=== PATIENT | female | born 1930 | race Caucasian/White ===

== ENCOUNTER 2019-04-29 20:34 | Emergency (ER) | payer MEDICARE, OTHER ==
--- NOTE | 2019-04-29 21:40 | ER Document Report ---
ED General - General Chief Complaint: Displaced G-tube Stated Complaint: FEEDING TUBE Time Seen by Provider: 04/29/19 21:24 Primary Care Provider: KALE PASCUAL MD [NO LOCAL MD] - Follow up as needed Notes: Patient is a 89-year-old female that comes to the emergency department for chief complaint of displaced G-tube. Son states that he came to give her her medications and feeding tonight and he noticed that her G-tube had been pulled out. He denies any significant bleeding, patient has not been in pain and has not been complaining of anything. She has not been vomiting. No other complaints. Son is at bedside. Patient has dementia and is unable to give any meaningful history. She cannot tell me if she pulled this out or what happened. TRAVEL OUTSIDE OF THE [place] IN LAST 30 DAYS: No - Related Data Allergies/Adverse Reactions: Penicillins Allergy (Verified 12/18/17 14:49) Past Medical History - General Information source: Patient, Relative - Social History Smoking Status: Never Smoker Chew tobacco use (# tins/day): No Frequency of alcohol use: None Drug Abuse: None Lives with: Family Family History: Reviewed & Not Pertinent, Other - ams Patient has suicidal ideation: No Patient has homicidal ideation: No - Past Medical History Cardiac Medical History: Reports: Hx Atrial Fibrillation Renal/ Medical History: Denies: Hx Peritoneal Dialysis Past Surgical History: Reports: Hx Abdominal Surgery - Immunizations Immunizations up to date: Yes Hx Diphtheria, Pertussis, Tetanus Vaccination: Yes Review of Systems - Review of Systems Constitutional: No symptoms reported EENT: No symptoms reported Cardiovascular: No symptoms reported Respiratory: No symptoms reported Gastrointestinal: See HPI Genitourinary: No symptoms reported Female Genitourinary: No symptoms reported Musculoskeletal: No symptoms reported Skin: No symptoms reported Hematologic/Lymphatic: No symptoms reported Neurological/Psychological: No symptoms reported Physical Exam - Vital signs Vitals: Temp Pulse Resp BP Pulse Ox 98.7 F 74 16 128/62 H 100 04/30/19 00:13 04/30/19 00:13 04/30/19 00:13 04/30/19 00:13 04/30/19 00:13 - Notes Notes: GENERAL: Alert, interacts well. No acute distress. HEAD: Normocephalic, atraumatic. EYES: Pupils equal, round, and reactive to light. Extraocular movements intact. ENT: Oral mucosa moist, tongue midline. Oropharynx unremarkable. Airway patent. LUNGS: Clear to auscultation bilaterally, no wheezes, rales, or rhonchi. No respiratory distress. HEART: Regular rate and rhythm. No murmur ABDOMEN: There is an opening in the left upper/mid abdomen consistent with an opening for a G-tube. Very small amount of gastric contents at the edges of this, very small amount of blood, no current bleeding noted however. No erythema, tenderness, or concerning findings. GENITOURINARY: Deferred EXTREMITIES: Moves all 4 extremities spontaneously. No edema, normal radial and dorsalis pedis pulses bilaterally. No cyanosis. BACK: no cervical, thoracic, lumbar midline tenderness. No saddle anesthesia, normal distal neurovascular exam. Moves all extremities in full range of motion. NEUROLOGICAL: Alert to person and place but not to events. Normal speech. Cranial nerves II through XII grossly intact. PSYCH: Normal affect, normal mood. SKIN: Warm, dry, normal turgor. No rashes or lesions noted. Course - Re-evaluation Re-evalutation: Patient has a G-tube with no markings on it, there is no clear size given on the G-tube. I am estimating this is approximately an 18-20 Colombian, the area was quickly cleaned in sterile fashion and we attempted to pass a 20 but this was too small of a hole. However the 18 passed easily, this was confirmed by auscultation, KUB pending to confirm placement for use. Patient discussed with Dr. Dean. wastewater technician imaged this, I cannot see the tube with contrast. I discussed with with her. She states that she attempted to flush using contrast but all of it immediately came back out of the tubing without going in. The area was re evaluated, the balloon appears to be intact, I was able to pass this easily previously, we flushed this with no difficulty. I called the radiology department back and they sent another tech, this tech was able to easily flush the Gastrografin in and the KUB resulting appears normal. Since this has been confirmed in place, patient has no other complaints, her vital signs are unremarkable, discussed follow-up with patient and family, discussed return precautions. They state appreciation and agreement. Stable at time of discharge. - Vital Signs Vital signs: Temp Pulse Resp BP Pulse Ox 98.7 F 74 16 128/62 H 100 04/30/19 00:13 04/30/19 00:13 04/30/19 00:13 04/30/19 00:13 04/30/19 00:13 Procedures - Additional Procedures Gastric tube replacement Additional Procedures: Gastric tube replacement - Old gastric tube has already been removed by patient. Area was cleaned with Hibiclens, I used sterile gloves and a sterile field, I attempted to pass a 20 Colombian gastric tube through the opening but I could not get this in the opening easily, this was aborted, I changed to an 18 Colombian gastric tube and this advanced easily with no resistance and no painful response from the patient. No significant bleeding resulting from the procedure. Area was secured with the device lock and with a dressing. Area was flushed with air and confirmed placement with auscultation. Patient tolerated procedure very well. Discharge - Discharge Clinical Impression: Complaint associated with gastric tube Condition: Stable Disposition: HOME, SELF-CARE Additional Instructions: The tubing has been replaced, she now has a 20 Colombian tube which has been flushed and confirmed to be working. Proceed with her regular medications and feedings. Please follow-up closely with her mother's helper for recheck and additional management. Return for any concerning symptoms (severe pain, developing redness at the site, etc) or if something is not right. Referrals: KALE PASCUAL MD [NO LOCAL MD] - Follow up as needed
--- NOTE | 2019-04-29 22:54 | RADIOLOGY REPORT (SQ) ---
EXAM DESCRIPTION: [facility]: XR ABDOMEN 1 VIEW (KUB) CLINICAL HISTORY: 89 years Female; replaced g-tube, Gastrografin; COMPARISON: 12/18/2017 FINDINGS: AP portable supine view of the mid and lower abdomen. The upper abdomen is not entirely included on this image. No gastrostomy tube is identified. No Gastrografin or other contrast material is identified. No bowel distention. No pneumatosis. Chronic degenerative changes are noted in the lumbar spine. IMPRESSION: 1. Gastrostomy tube is not imaged on this exam (upper abdomen incompletely imaged). No contrast material is identified. 2. No bowel distention.
--- NOTE | 2019-04-29 23:53 | RADIOLOGY REPORT (SQ) ---
ABDOMINAL RADIOGRAPH: 04/29/2019 10:51 PM PHERESIS SPECIALIST COMPARISON: Abdominal radiograph from earlier on the same day available TECHNIQUE: A single radiograph of the abdomen was obtained. HISTORY: 89-year old with G-tube placement. FINDINGS: The lung bases were not fully included on this examination. There is contrast seen at the stomach and proximal duodenum. Contrast is also seen extending into the distal esophagus. This is suggestive of some reflux. No gross contrast extravasation is seen. The visualized bowel gas pattern is nonspecific and nonobstructive. No abnormal intra-abdominal calcifications are seen. There are no findings to suggest organomegaly. Multilevel degenerative changes are seen within the lumbar spine. IMPRESSION: Contrast is seen at the stomach and proximal duodenum without evidence of gross contrast extravasation on this single radiograph. There is contrast in the distal esophagus suggesting reflux.
[2019-04-30 00:14] VITALS: BP 128/62
== END 2019-04-30 01:26 | disposition home or self-care (01) ==
LOC: ER 20:34
DX: Z43.1 Encounter for attention to gastrostomy (principal); F03.90 Unspecified dementia, unspecified severity, without behavioral disturbance, psychotic disturbance, mood disturbance, and anxiety; I48.91 Unspecified atrial fibrillation; Y83.3 Surgical operation with formation of external stoma as the cause of abnormal reaction of the patient, or of later complication, without mention of misadventure at the time of the procedure; Z88.0 Allergy status to penicillin
CPT/HCPCS: 74018; 99283

== ENCOUNTER 2019-05-02 12:29 | Emergency (ER) | payer MEDICARE, OTHER ==
--- NOTE | 2019-05-02 12:46 | ER Document Report ---
ED General - General Stated Complaint: TUBE ISSUES Time Seen by Provider: 05/02/19 12:45 Primary Care Provider: LAURA WEIR DO [Primary Care Provider] - Follow up as needed TRAVEL OUTSIDE OF THE [place] IN LAST 30 DAYS: No - Related Data Allergies/Adverse Reactions: Penicillins Allergy (Verified 12/18/17 14:49) Past Medical History - Social History Family History: Reviewed & Not Pertinent, Other - ams - Past Medical History Cardiac Medical History: Reports: Hx Atrial Fibrillation Renal/ Medical History: Denies: Hx Peritoneal Dialysis Past Surgical History: Reports: Hx Abdominal Surgery - Immunizations Immunizations up to date: Yes Hx Diphtheria, Pertussis, Tetanus Vaccination: Yes Discharge - Discharge Referrals: LAURA WEIR DO [Primary Care Provider] - Follow up as needed
--- NOTE | 2019-05-02 13:10 | ER Document Report ---
ED General - General Chief Complaint: Problem with Feeding Tube Stated Complaint: TUBE ISSUES Time Seen by Provider: 05/02/19 12:45 Primary Care Provider: LAURA WEIR DO [Primary Care Provider] - Follow up as needed TRAVEL OUTSIDE OF THE [place] IN LAST 30 DAYS: No - HPI Patient complains to provider of: Feeding Tube Issue Notes: Well-appearing 89-year-old female with feeding tubes dislodged. Patient had a feeding tube placed back in December of last year. Tube fell out approximately 1 hour ago. This tube was also just pulled out about 4 days ago and replaced in the emergency department. 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 Appears in no acute distress. Non-reliable review of systems. - Related Data Allergies/Adverse Reactions: Penicillins Allergy (Verified 12/18/17 14:49) Past Medical History - Social History Smoking Status: Unknown if Ever Smoked Family History: Reviewed & Not Pertinent, Other - ams Patient has suicidal ideation: No Patient has homicidal ideation: No - Past Medical History Cardiac Medical History: Reports: Hx Atrial Fibrillation Renal/ Medical History: Denies: Hx Peritoneal Dialysis Past Surgical History: Reports: Hx Abdominal Surgery - Immunizations Immunizations up to date: Yes Hx Diphtheria, Pertussis, Tetanus Vaccination: Yes Review of Systems - Review of Systems -: Yes ROS unobtainable due to patient's medical condition Physical Exam - Vital signs Vitals: Temp Pulse Resp BP Pulse Ox 98.8 F 73 16 119/65 96 05/02/19 12:37 05/02/19 12:37 05/02/19 12:37 05/02/19 12:37 05/02/19 12:37 - Notes Notes: Well-appearing female no acute distress. PHYSICAL EXAMINATION: GENERAL: Well-appearing, well-nourished and in no acute distress. HEAD: Atraumatic, normocephalic. EYES: Pupils equal round and reactive to light, extraocular movements intact, sclera anicteric, conjunctiva are normal. ENT: nares patent, oropharynx clear without exudates. Moist mucous membranes. NECK: Normal range of motion, supple without lymphadenopathy LUNGS: Breath sounds clear to auscultation bilaterally and equal. No wheezes rales or rhonchi. HEART: Regular rate and rhythm without murmurs ABDOMEN: Well-healed PEG site anterior abdomen no foul-smelling discharge. EXTREMITIES: Normal range of motion, no pitting or edema. No cyanosis. SKIN: Warm, Dry, normal turgor, no rashes or lesions noted. Course - Re-evaluation Re-evalutation: 05/02/19 13:[address] [place] PEG tube successfully replaced in the emergency department. Balloon inflated shows withdrawal of stomach contents. Bumper placed on skin packing placed underneath with bandages. Fluoroscopy study ordered for tube placement. 05/02/19 15:08 Feeding tube replacement patient bump removed down to skin level packing underneath him ensure no skin breakdown. Patient has imaging study done on the fluoroscopy which shows appropriate tube placement. Patient be discharged home improved follow-up PCP return if anything worsens or changes - Vital Signs Vital signs: Temp Pulse Resp BP Pulse Ox 98.8 F 73 16 119/65 96 05/02/19 12:37 05/02/19 12:37 05/02/19 12:37 05/02/19 12:37 05/02/19 12:37 Discharge - Discharge Clinical Impression: Complaint associated with gastric tube Condition: Stable Disposition: HOME, SELF-CARE Additional Instructions: Follow-up PCP return if anything worsens or changes Referrals: LAURA WEIR, [Primary Care Provider] - Follow up as needed
--- NOTE | 2019-05-02 14:51 | RADIOLOGY REPORT (SQ) ---
EXAM DESCRIPTION: INJECT EXISTING/TUBE PLACEMENT COMPLETED DATE/TIME: 05/02/2019 2:08 pm REASON FOR STUDY: feeding tube COMPARISON: None. FLUOROSCOPY TIME: 0.3 minutes of fluoroscopy was used. 4 images saved to PACS. TECHNIQUE: Injection of contrast through existing catheter. Fluoroscopic spot films saved to PACS d emonstrating final catheter position. LIMITATIONS: None. FINDINGS: CONTRAST INJECTED: 40 mL Omnipaque 300 TUBE POSITION: The tip of the catheter is within the stomach. Contrast can be seen emptying out of th e stomach and into the small intestine. IMPRESSION: THE CATHETER APPEARS TO BE IN SATISFACTORY POSITION. COMMENT: Quality ID [id number]: Final reports for procedures using fluoroscopy that document radiation exp osure indices, or exposure time and number of fluorographic images (if radiation exposure indices are not available) TECHNICAL DOCUMENTATION: JOB ID: [id number] 2010 [employer]- All Rights Reserved Reading location - IP/workstation name: [email or web address] [id number]
[2019-05-02 15:31] VITALS: BP 140/69
== END 2019-05-02 15:29 | disposition home or self-care (01) ==
LOC: ER 12:29
DX: Z43.1 Encounter for attention to gastrostomy (principal); I69.320 Aphasia following cerebral infarction; Z88.0 Allergy status to penicillin
CPT/HCPCS: 49465; 99283

== ENCOUNTER 2019-05-03 15:34 | Emergency (ER) | payer MEDICARE, OTHER ==
--- NOTE | 2019-05-03 17:03 | ER Document Report ---
ED General - General Chief Complaint: Problem with Feeding Tube Stated Complaint: TUBE ISSUES Primary Care Provider: LAURA WEIR DO [Primary Care Provider] - Follow up as needed Information source: Patient, Relative Notes: Patient is an 89-year-old female presenting to the emergency department chief complaint of difficulties with feeding tube. Family states that the patient was seen most recently Thursday for feeding tube replacement however Thursday before was seen for the same complaint. Son states that he has been performing tube feeds as he has over the past several months without difficulties until recently he is had difficulties with feeding tube staying in place. On presentation patient is alert and oriented and at baseline in no acute distress. TRAVEL OUTSIDE OF THE [place] IN LAST 30 DAYS: No - HPI Onset: This morning Onset/Duration: Intermittent Quality of pain: No pain Severity: None Pain Level: Denies Associated symptoms: None Exacerbated by: Denies Relieved by: Denies Similar symptoms previously: Yes Recently seen / treated by doctor: Yes - Related Data Allergies/Adverse Reactions: Penicillins Allergy (Verified 12/18/17 14:49) Past Medical History - General Information source: Patient, Relative, [facility] Records - Social History Smoking Status: Unknown if Ever Smoked Chew tobacco use (# tins/day): No Frequency of alcohol use: None Drug Abuse: None Lives with: Family Family History: Reviewed & Not Pertinent, Other - ams Patient has suicidal ideation: No Patient has homicidal ideation: No - Past Medical History Cardiac Medical History: Reports: Hx Atrial Fibrillation Neurological Medical History: Reports: Hx Cerebrovascular Accident Renal/ Medical History: Denies: Hx Peritoneal Dialysis Past Surgical History: Reports: Hx Abdominal Surgery - Immunizations Immunizations up to date: Yes Hx Diphtheria, Pertussis, Tetanus Vaccination: Yes Review of Systems - Review of Systems Notes: REVIEW OF SYSTEMS: CONSTITUTIONAL : Denies fever, chills, or sweats. Denies recent illness. EENT: Denies eye, ear, throat, or mouth pain or symptoms. Denies nasal or sinus congestion. CARDIOVASCULAR: Denies chest pain. RESPIRATORY: Denies cough, cold, or chest congestion. Denies shortness of breath, difficulty breathing, or wheezing. GASTROINTESTINAL: Denies abdominal pain. Denies nausea, vomiting, or diarrhea. Denies constipation. However is having difficulties with feeding tube. GENITOURINARY: Denies difficulty urinating, painful urination, burning, frequency, or blood in urine. MUSCULOSKELETAL: Denies neck or back pain or joint pain or swelling. SKIN: Denies rash or skin lesions. HEMATOLOGIC : Denies easy bruising or bleeding. NEUROLOGICAL: Denies altered mental status or loss of consciousness. Denies headache. Denies weakness or paralysis or loss of use of either side. Denies problems with gait or speech. Denies sensory or motor loss. PSYCHIATRIC: Denies suicidal or homicidal ideations 10 Systems are negative unless otherwise specified above Physical Exam - Notes Notes: PHYSICAL EXAMINATION: GENERAL: Well-appearing, well-nourished and in no acute distress. HEAD: Atraumatic, normocephalic. EYES: Pupils equal round and reactive to light, extraocular movements intact, sclera anicteric, conjunctiva are normal. ENT: nares patent, oropharynx clear without exudates. Moist mucous membranes. NECK: Normal range of motion, supple without lymphadenopathy, no appreciable JVD LUNGS: Lungs clear to auscultation bilaterally and equal. No wheezes rales or rhonchi. HEART: Regular rate and rhythm without murmurs ABDOMEN: Soft, nontender, normal bowel sounds. No guarding, no rebound. No masses appreciated. When palpated feeding tube easily dislodges balloon is not inflated. EXTREMITIES: Active full range of motion, no pitting or edema. No cyanosis. 2+ pulses x4 NEUROLOGICAL: No focal neurological deficits. Moves all extremities spontaneously and on command. SKIN: Warm, Dry, and intact. Normal turgor, no rashes or lesions noted. Course - Re-evaluation Re-evalutation: 05/03/19 17:58 Tube is easily reinserted a balloon is reinflated patient will be rechecked in 15 minutes for maintenance of balloon inflation. 05/03/19 18:11 Reevaluation at this time to be is still in place I did check and there are still 6 cc of air in the balloon. Patient will be sent to x-ray for verification of tube placement. 05/03/19 19:16 Patient has been reevaluated several times while in the emergency department there is never been issues of balloon deflation. I did review the x-rays and tube appears to be in adequate place. I did instruct the patient's son to follow-up with general surgery as needed if the tube continues to have issues otherwise ensure no one else is manipulating the tube causing any possible deflation. Patient is stable at time of discharge. - Diagnostic Test Radiology reviewed: Image reviewed, Reports reviewed Discharge - Discharge Clinical Impression: Complaint associated with gastric tube Condition: Stable Disposition: HOME, SELF-CARE Additional Instructions: Please ensure no one manipulates the balloon port to the feeding tube. Follow- up with general surgery as needed. Referrals: LAURA WEIR DO [Primary Care Provider] - Follow up as needed ÓSCAR ALLRED MD [ACTIVE STAFF] - Follow up as needed
--- NOTE | 2019-05-03 18:55 | RADIOLOGY REPORT (SQ) ---
EXAM DESCRIPTION: KUB/ABDOMEN (SINGLE VIEW) COMPLETED DATE/TIME: 05/03/2019 6:42 pm REASON FOR STUDY: tube placement COMPARISON: None. NUMBER OF VIEWS: One view. TECHNIQUE: Supine radiographic image of the abdomen acquired. LIMITATIONS: None. FINDINGS: Contrast is present in the distal esophagus, stomach, and proximal small bowel. Gastrosto my tube is not identified. Nasogastric tube is not seen. A small hiatal hernia is present. A krishan ter is seen overlying the left side of the pelvis. The distal end of the catheter is not identified. IMPRESSION: Findings as described. TECHNICAL DOCUMENTATION: JOB ID: [id number] 2010 [employer]- All Rights Reserved Reading location - IP/workstation name: [email or web address]
[2019-05-03 19:53] VITALS: BP 142/78
== END 2019-05-03 19:55 | disposition home or self-care (01) ==
LOC: ER 15:34
DX: Z43.1 Encounter for attention to gastrostomy (principal); Z88.0 Allergy status to penicillin
CPT/HCPCS: 74018; 99283

== ENCOUNTER 2019-07-14 08:05 | Emergency (ER) | payer MEDICARE, OTHER ==
[2019-07-14] MEDS ORDERED: ACETAMINOPHEN 325 MG SUPP.RECT PR ONE ×2 (08:20→09:00)
--- NOTE | 2019-07-14 09:21 | ER Document Report ---
Entered by DAVID KEITA SCRIBE 07/14/19 0856 Acting as scribe for:CATHY MORALES MD ED General - General Chief Complaint: Fever Stated Complaint: FEVER Time Seen by Provider: 07/14/19 08:43 Primary Care Provider: LAURA WEIR DO [Primary Care Provider] - Follow up as needed Mode of Arrival: Ambulatory Information source: Patient Notes: This 89 year old female patient presents to the emergency department today with complaints of feeding tube dislodgment. Patient is demented and unable to provide any history. This is the patient's fourth visit since 04/29/2019 for feeding tube complications. TRAVEL OUTSIDE OF THE [place] IN LAST 30 DAYS: No - Related Data Allergies/Adverse Reactions: Penicillins Allergy (Verified 07/14/19 09:03) Past Medical History - General Information source: [facility] Records Cannot obtain history due to: Altered mental status - Social History Smoking Status: Former Smoker Lives with: Family Family History: Reviewed & Not Pertinent, Other - ams - Past Medical History Cardiac Medical History: Reports: Hx Atrial Fibrillation Neurological Medical History: Reports: Hx Cerebrovascular Accident Past Surgical History: Reports: Hx Abdominal Surgery - feeding tube - Immunizations Immunizations up to date: Yes Hx Diphtheria, Pertussis, Tetanus Vaccination: Yes Review of Systems - Review of Systems -: Yes ROS unobtainable due to patient's medical condition Physical Exam - Vital signs Vitals: Pulse Ox 94 07/14/19 08:23 - General General appearance: Appears well, Alert In distress: None - HEENT Head: Normocephalic, Atraumatic Eyes: Normal Pupils: PERRL Neck: Normal - Respiratory Respiratory status: No respiratory distress Breath sounds: Normal - Cardiovascular Rhythm: Regular Heart sounds: Normal auscultation Murmur: No - Abdominal Inspection: Obese Bowel sounds: Normal Tenderness: Nontender Organomegaly: Other - Gastrostomy stoma has a bandage over it. There are no gastric contents draining. - Back Back: Normal - Extremities General upper extremity: Normal inspection General lower extremity: Normal inspection - Neurological Neuro grossly intact: Yes Cognition: Other - Dementia. Nonverbal. Does not seem to understand or interact. - Psychological Associated symptoms: Other - Severe dementia - Skin Skin Temperature: Warm Skin Moisture: Dry Skin Color: Normal Course - Re-evaluation Re-evalutation: 07/14/19 09:22 It is unknown how long the feeding tube has been out. An attempt was made to pass a new 20 Azerbaijani gastrostomy tube similar to the one that came out. It was easily introduced through the skin opening, but seemed to hit against a firm structure and not passed any further. At this point it seemed to be in about his the same amount that the previous catheter was in based on where the skin attachment on the other catheter was located. Inflating the balloon seems to feel like it was in the subcutaneous space. I deflated the balloon and made multiple attempts to pass the tube but kept bumping up against a firm structure. I did decide to try a small amount of Gastrografin to be sure that she did not just have a very small stomach. The x- ray shows the Gastrografin went into the subcutaneous space. 07/14/19 11:44 Feeding tube was placed in the radiology department using fluoroscopy. The tech reports that the tube I was tried in the past appeared to be right at the opening to the stomach but the hole was too small. This is most likely due to the tube having been out for so long. The patient had been using a 20 Azerbaijani, the tech was able to get an 18 Azerbaijani in. 07/14/19 12:33 At this point the feeding tube is been replaced. The urinalysis shows a urinary tract infection. Lab work shows the patient is a little dehydrated. She has not vomited since she got here, has not had a bowel movement. The nurse noted that the patient had not been making much urine so we will give her a liter of normal saline and then reassess. - Vital Signs Vital signs: Temp Pulse Resp BP Pulse Ox 101.2 F H 23 H 105/73 97 07/14/19 10:12 07/14/19 14:02 07/14/19 14:02 07/14/19 14:02 - Laboratory Result Diagrams: 07/14/19 09:11 07/14/19 09:11 Laboratory results interpreted by me: 07/14/19 07/14/19 07/14/19 09:11 09:11 10:00 Plt Count 145 L Glucose 133 H Urine Protein 100 H Urine Blood SMALL H Urine Urobilinogen 2.0 H Ur Leukocyte Esterase MODERATE H Urine Ascorbic Acid 40 H - Diagnostic Test Radiology reviewed: Image reviewed, Reports reviewed - Chest x-ray shows mild cardiomegaly without acute radiographic changes. - EKG Interpretation by Oh EKG shows normal: Sinus rhythm, [place], Intervals, QRS Complexes, ST-T Waves Rate: Normal - 83 Heart block present: 1st Degree Discharge - Discharge Clinical Impression: Encounter for feeding tube placement, Dehydration Fever Qualifiers: Fever type: unspecified Qualified Code(s): R50.9 - Fever, unspecified Urinary tract infection Qualifiers: Urinary tract infection type: site unspecified Hematuria presence: with hematuria Qualified Code(s): N39.0 - Urinary tract infection, site not specified Vomiting Qualifiers: Vomiting type: unspecified Vomiting Intractability: non-intractable Nausea presence: unspecified Qualified Code(s): R11.10 - Vomiting, unspecified Condition: Stable Disposition: HOME, SELF-CARE Additional Instructions: Urinary Tract Infection: Your evaluation indicates that you have a urinary tract infection. This is due to germs growing in the bladder. This is a common problem. This infection usually responds quickly to antibiotics. Your antibiotic should be taken exactly as prescribed. Drink plenty of fluids -- three to four quarts a day. Occasionally, a bladder anesthetic will be prescribed to help stop the feeling of urgency until the antibiotic has a chance to clear the infection. This may cause your urine to be dark orange. Certain urine infections require a culture. If the doctor obtained a culture, the results will be back in two days. You should call to see if a change in treatment is needed. A repeat urinalysis after you finish treatment is often recommended. The physician will let you know if further testing is required. Call the doctor if you develop fever, chills, flank pain, inability to urinate, or blood in the urine. * The gastrostomy tube had to be replaced in the radiology department using flu oroscopy because the opening had narrowed too much during the time the tube was out. She now has an 18 Azerbaijani gastrostomy tube. This may require more frequent flushing to prevent it becoming obstructed. The patient has a urinary tract infection. She was given a dose of antibiotics here in the emergency room, and a prescription to start tomorrow. Be sure to grind the tablets up well and try to dissolve in water before putting down the gastrostomy tube if she is not able to swallow the tablets. Be sure to give plenty of fluids so that she is able to flush her bladder out and help clear up the infection quicker. Follow-up with your primary care provider if not improving. RETURN TO THE EMERGENCY ROOM IF ANY NEW OR WORSENING SYMPTOMS. Prescriptions: Levofloxacin [Levaquin 250 mg Tablet] 250 mg PO DAILY #4 tablet Referrals: LAURA WEIR DO [Primary Care Provider] - Follow up as needed I personally performed the services described in the documentation, reviewed and edited the documentation which was dictated to the scribe in my presence, and it accurately records my words and actions.
[2019-07-14 09:27] LABS: ABSOLUTE LYMPHOCYTES (AUTO) 0.8 10^3/uL (0.5-4.7); ABSOLUTE MONOCYTES (AUTO) 0.5 10^3/uL (0.1-1.4); ABSOLUTE NEUT (AUTO) 3.2 10^3/uL (1.7-8.2); BASOPHILS % (AUTO) 0.5 % (0-2); EOSINOPHILS % (AUTO) 0.1 % (0-6); HEMATOCRIT 37.3 % (36.0-47.0); MEAN CORPUSCULAR HEMOGLOBIN 33.1 pg (27.0-33.4); MEAN CORPUSCULAR HGB CONC 34.9 g/dL (32.0-36.0); MEAN CORPUSCULAR VOLUME 95 fl (80-97); MONOCYTES % (AUTO) 12.1 % (3-13); PLATELET COUNT 145 10^3/uL (150-450); RED BLOOD COUNT 3.93 10^6/uL (3.72-5.28); RED CELL DISTRIBUTION WIDTH 13.4 % (11.5-14.0); SEGMENTED NEUTROPHILS % (AUTO) 70.3 % (42-78); TOTAL CELLS COUNTED % (AUTO) 100 %; WHITE BLOOD COUNT 4.5 10^3/uL (4.0-10.5)
[2019-07-14 09:47] LABS: ALBUMIN 3.7 g/dL (3.5-5.0); ALKALINE PHOSPHATASE 102 U/L (38-126); ANION GAP 6 (5-19); ASPARTATE AMINO TRANSFERASE 35 U/L (14-36); BILIRUBIN,TOTAL 0.6 mg/dL (0.2-1.3); BLOOD UREA NITROGEN 19 mg/dL (7-20); CALCIUM 8.7 mg/dL (8.4-10.2); CARBON DIOXIDE 25 mmol/L (22-30); CHLORIDE 107 mmol/L (98-107); CREATINE KINASE 71 U/L (30-135); GLUCOSE 133 mg/dL (75-110); POTASSIUM 4.3 mmol/L (3.6-5.0); TOTAL PROTEIN 7.2 g/dL (6.3-8.2)
--- NOTE | 2019-07-14 09:47 | RADIOLOGY REPORT (SQ) ---
EXAM DESCRIPTION: KUB/ABDOMEN (SINGLE VIEW) IMAGES COMPLETED DATE/TIME: 07/14/2019 9:35 am REASON FOR STUDY: Gastrostomy tube placement COMPARISON: 05/03/2019. NUMBER OF VIEWS: One view. TECHNIQUE: Supine radiographic image of the abdomen acquired after administration of 15 mL of Gastr ografin through the gastrostomy tube follow by 10 mL of water. LIMITATIONS: None. FINDINGS: BOWEL GAS PATTERN: Contrast is present in the gastric antrum but there is also local extra vasation of contrast. CALCIFICATIONS: No suspicious calcifications. SOFT TISSUES: No gross mass or suggestion of organomegaly. HARDWARE: Gastrostomy tube. BONES: No acute fracture. No worrisome bone lesions. OTHER: No other significant finding. IMPRESSION: CONTRAST EXTRAVASATION FROM THE GASTROSTOMY TUBE. THE CASE WAS DISCUSSED WITH DR. MORALES AND THE PATIENT WILL BE BROUGHT TO THE RADIOLOGY DEPARTMENT TO ATTEMPT PLACEMENT WITH FLUOROSCOPIC G UIDANCE. TECHNICAL DOCUMENTATION: JOB ID: [id number] 2010 [employer]- All Rights Reserved Reading location - IP/workstation name: [email or web address]
[2019-07-14 10:43] LABS: APPEARANCE,URINE SLIGHTLY-CLOUDY; BILIRUBIN,URINE NEGATIVE (NEGATIVE); COLOR,URINE YELLOW; GLUCOSE, URINE NEGATIVE (NEGATIVE); KETONES,URINE NEGATIVE (NEGATIVE); LEUKOCYTE ESTERASE,URINE MODERATE (NEGATIVE); NITRITE,URINE NEGATIVE (NEGATIVE); PROTEIN,URINE 100 mg/dL (NEGATIVE); URINE SPECIFIC GRAVITY 1.021
[2019-07-14] MEDS ORDERED: LEVOFLOXACIN 750 MG/D5W RTU 750 MG/150 ML RTUPB IV ONE (11:46)
--- NOTE | 2019-07-14 12:27 | RADIOLOGY REPORT (SQ) ---
EXAM DESCRIPTION: CHEST SINGLE VIEW IMAGES COMPLETED DATE/TIME: 07/14/2019 12:14 pm REASON FOR STUDY: Vomiting, fever, short of breath COMPARISON: 12/18/2017. EXAM PARAMETERS: NUMBER OF VIEWS: One view. TECHNIQUE: Single frontal radiographic view of the chest acquired. RADIATION DOSE: NA LIMITATIONS: None. FINDINGS: LUNGS AND PLEURA: No opacities, masses or pneumothorax. No pleural effusion. MEDIASTINUM AND HILAR STRUCTURES: No masses. Contour normal. HEART AND VASCULAR STRUCTURES: Mild cardiomegaly. Normal vasculature. BONES: No acute findings. HARDWARE: None in the chest. OTHER: No other significant finding. IMPRESSION: MILD CARDIOMEGALY. NO ACUTE RADIOGRAPHIC FINDING IN THE CHEST. TECHNICAL DOCUMENTATION: JOB ID: [id number] 2010 [employer]- All Rights Reserved Reading location - IP/workstation name: [email or web address]
[2019-07-14] MEDS ORDERED: NORMAL SALINE 1000 ML 1,000 ML IV ONE (12:33)
--- NOTE | 2019-07-14 13:16 | RADIOLOGY REPORT (SQ) ---
EXAM DESCRIPTION: INJECT EXISTING/TUBE PLACEMENT IMAGES COMPLETED DATE/TIME: 07/14/2019 11:28 am REASON FOR STUDY: g-tube placement under fluoro COMPARISON: None. TECHNIQUE: Gastrostomy tube replacement under fluoro. LIMITATIONS: None. FINDINGS: The patient was placed on the radiology table in a supine position. A 0.035 glidewire was introduced through the patient's existing gastrostomy tract using a 9 Bermudian dilator. Attempts to f eed a 20 Bermudian gastrostomy tube over the guidewire were unsuccessful. Further attempts with the 20 Bermudian catheter were aborted due to patient discomfort. An 18 Bermudian Jerez catheter was then passed through the tract and into the stomach. Approximately 5 mL of contrast was instilled through the cat heter to verify placement. Opacification of the stomach is seen with satisfactory catheter position. IMPRESSION: SUCCESSFUL PLACEMENT OF AN 18 CANADIAN JEREZ CATHETER THROUGH EXISTING G-TUBE TRACT. COMMENT: General surgery may need to be consulted for placement of appropriate catheter. TECHNICAL DOCUMENTATION: JOB ID: [id number] 2010 [employer]- All Rights Reserved Reading location - IP/workstation name: [email or web address]
[2019-07-14 15:34] VITALS: BP 101/51
--- NOTE | 2019-07-14 21:02 | EKG REPORT ---
SEVERITY:- ABNORMAL ECG - SINUS RHYTHM FIRST DEGREE AV BLOCK BORDERLINE R WAVE PROGRESSION, ANTERIOR LEADS : Confirmed by: Sabrina Craig MD 14-Jul-2019 21:01:46
--- NOTE | 2019-07-17 17:00 | ER Document Report ---
Doctor's Note Notes: 07/17/19 16:59 Spoke with patient's son Poncho Bustillos who states that patient is improving. No fevers, tolerating medications well last dose of antibiotics tomorrow. Counseled to have them follow-up with primary care physician this week for recheck return to the emergency room for any new or worsening symptoms. Son verbalized understanding and agreed with plan of care.
== END 2019-07-14 15:33 | disposition home or self-care (01) ==
LOC: ER 08:05
DX: R50.9 Fever, unspecified (principal)
CPT/HCPCS: 93005; 99285; 96365; 96366; 36415; 87040; 87086; 82550; 83735; 85025; 87077; 87088; 80053; 81001; 84484; 87186; 87150 ×26; 49465; 71045; 74018; 93010; C1758; C1894; C1769; A9270; J7030; J1956; J3490

== ENCOUNTER 2019-07-21 13:27 | Emergency (ER) | payer MEDICARE, OTHER ==
--- NOTE | 2019-07-21 20:43 | ER Document Report ---
ED General - General Chief Complaint: Problem with Urinary Catheter Stated Complaint: PROBLEM WITH URINARY CATHETER Time Seen by Provider: 07/21/19 19:46 Primary Care Provider: LAURA WEIR DO [Primary Care Provider] - Follow up as needed Mode of Arrival: Medic Information source: Relative - patients son Cannot obtain history due to: Dementia TRAVEL OUTSIDE OF THE [place] IN LAST 30 DAYS: No - HPI Onset: Other - unknown Onset/Duration: Gradual Quality of pain: Pressure Severity: Mild Pain Level: 1 Associated symptoms: None Exacerbated by: Denies Relieved by: Denies Similar symptoms previously: Yes - patient has a feeding tube and Barnes which are chronic Recently seen / treated by doctor: Yes - patient seen in the ER on 07/13 and had her G tube replaced and started abx. Notes: 89 year old female with a history of Afib, CVA and Dementia (she is unable to provide any PMH) who has a G tube here in the ER due to pain from the Barnes (according to the patient's son the barnes was just recently placed). The patient is unable to provide any history due to her severe dementia. Nursing staff spoke with the patient's son who says the barnes catheter was only placed since the patient had a UTI (she has taken a course of Levaquin). The patient's son would like the barnes catheter removed. - Related Data Allergies/Adverse Reactions: Penicillins Allergy (Verified 07/14/19 09:03) Past Medical History - General Information source: Relative Cannot obtain history due to: Dementia - Social History Smoking Status: Unknown if Ever Smoked Frequency of alcohol use: None Drug Abuse: None Family History: Reviewed & Not Pertinent, Other - ams Patient has homicidal ideation: No - Past Medical History Cardiac Medical History: Reports: Hx Atrial Fibrillation Neurological Medical History: Reports: Hx Cerebrovascular Accident Renal/ Medical History: Denies: Hx Peritoneal Dialysis Past Surgical History: Reports: Hx Abdominal Surgery - feeding tube - Immunizations Immunizations up to date: Yes Hx Diphtheria, Pertussis, Tetanus Vaccination: Yes Physical Exam - Vital signs Vitals: Temp Pulse Resp BP Pulse Ox 97.9 F 80 16 121/88 H 98 07/21/19 13:44 07/21/19 13:44 07/21/19 13:44 07/21/19 13:44 07/21/19 13:44 Course - Re-evaluation Re-evalutation: 07/21/19 23:48 The patient is severely demented and unable to provide any history. She does not appear to be in any distress. The patient has finished a course of Levaquin for a previous UTI. Patient's son wanted the Barnes removed so that is why he sent the patient to the ER. Barnes therefore removed. Looking at the patient's last ER visit, the patient had positive blood cultures for what looks like skin contaminant shanti but also for Klebsiella. Patient is not febrile today and has no elevated WBC. Will obtain 2 more blood cultures today but discharge patient and have her follow up with her PCP. What grew out in her blood cultures was not was grew out in her urine culture which make contamination seem most likely to me. - Vital Signs Vital signs: Temp Pulse Resp BP Pulse Ox 98.1 F 77 20 130/61 H 96 07/21/19 23:00 07/21/19 23:00 07/21/19 23:00 07/21/19 23:00 07/21/19 23:00 - Laboratory Result Diagrams: 07/21/19 23:33 07/21/19 23:33 Laboratory results interpreted by me: 07/21/19 23:33 Sodium 136.1 L Creatinine 0.46 L AST 44 H ALT 55 H Discharge - Discharge Clinical Impression: Barnes catheter problem Qualifiers: Encounter type: subsequent encounter Qualified Code(s): T83.9XXD - Unspecified complication of genitourinary prosthetic device, implant and graft, subsequent encounter Condition: Stable Disposition: HOME, SELF-CARE Additional Instructions: Follow up with your primary care doctor for further treatment and care. You had a Barnes Catheter removed in the ER today at the request of your son. Continue taking your previously prescribed antibiotics for a UTI if you have not finished all of them already. Return to an ER for fevers, chills, sweats, or if worse in anyway. Referrals: LAURA WEIR, [Primary Care Provider] - Follow up as needed
[2019-07-21 23:49] LABS: ABSOLUTE EOSINOPHILS # (AUTO) 0.3 10^3/uL (0.0-0.6); ABSOLUTE LYMPHOCYTES (AUTO) 1.7 10^3/uL (0.5-4.7); ABSOLUTE MONOCYTES (AUTO) 0.6 10^3/uL (0.1-1.4); ABSOLUTE NEUT (AUTO) 2.9 10^3/uL (1.7-8.2); BASOPHILS % (AUTO) 0.6 % (0-2); EOSINOPHILS % (AUTO) 5.1 % (0-6); HEMATOCRIT 36.2 % (36.0-47.0); HEMOGLOBIN 12.6 g/dL (12.0-15.5); LYMPHOCYTES % (AUTO) 30.4 % (13-45); MEAN CORPUSCULAR HGB CONC 34.7 g/dL (32.0-36.0); MEAN CORPUSCULAR VOLUME 95 fl (80-97); MONOCYTES % (AUTO) 10.8 % (3-13); PLATELET COUNT 212 10^3/uL (150-450); RED CELL DISTRIBUTION WIDTH 13.2 % (11.5-14.0); SEGMENTED NEUTROPHILS % (AUTO) 53.1 % (42-78); TOTAL CELLS COUNTED % (AUTO) 100 %; WHITE BLOOD COUNT 5.5 10^3/uL (4.0-10.5)
[2019-07-21 23:56] LABS: ALBUMIN 3.6 g/dL (3.5-5.0); ALKALINE PHOSPHATASE 102 U/L (38-126); ANION GAP 7 (5-19); ASPARTATE AMINO TRANSFERASE 44 U/L (14-36); BILIRUBIN,DIRECT 0.1 mg/dL (0.0-0.4); BILIRUBIN,TOTAL 0.6 mg/dL (0.2-1.3); BLOOD UREA NITROGEN 15 mg/dL (7-20); CALCIUM 8.8 mg/dL (8.4-10.2); CARBON DIOXIDE 25 mmol/L (22-30); CHLORIDE 104 mmol/L (98-107); GLUCOSE 101 mg/dL (75-110); POTASSIUM 4.3 mmol/L (3.6-5.0); TOTAL PROTEIN 7.1 g/dL (6.3-8.2)
[2019-07-22 07:08] VITALS: BP 133/62
== END 2019-07-22 07:32 | disposition home or self-care (01) ==
LOC: ER 13:27
DX: Z46.6 Encounter for fitting and adjustment of urinary device (principal); F03.90 Unspecified dementia, unspecified severity, without behavioral disturbance, psychotic disturbance, mood disturbance, and anxiety; I48.91 Unspecified atrial fibrillation; Z86.73 Personal history of transient ischemic attack (TIA), and cerebral infarction without residual deficits; Z93.1 Gastrostomy status
CPT/HCPCS: 36415; 80053; 85025; 87040; 87077; 87150; 87186; 99283

== ENCOUNTER 2019-07-30 12:30 | Emergency (ER) | payer MEDICARE, OTHER ==
--- NOTE | 2019-07-30 12:59 | ER Document Report ---
ED GI/ - General Chief Complaint: Displaced G-tube Stated Complaint: G TUBE ISSUES Time Seen by Provider: 07/30/19 12:43 Primary Care Provider: LAURA WEIR DO [Primary Care Provider] - Follow up as needed Notes: This 89-year-old female presents to the emergency department with a history of problems with the G-tube. Apparently patient was seen here on 06/25/2019 and a Mccray catheter was placed in the G-tube track. That Mccray catheter still in place. There is leakage and sliding of the tube there is no bleeding. Patient has dementia and is unable to give a history. TRAVEL OUTSIDE OF THE [place] IN LAST 30 DAYS: No - Related Data Allergies/Adverse Reactions: Penicillins Allergy (Verified 07/14/19 09:03) Home Medications: no list sent with pt Past Medical History - Social History Smoking Status: Unknown if Ever Smoked Family History: Reviewed & Not Pertinent, Other - ams Patient has homicidal ideation: No - Past Medical History Cardiac Medical History: Reports: Hx Atrial Fibrillation Neurological Medical History: Reports: Hx Cerebrovascular Accident Renal/ Medical History: Denies: Hx Peritoneal Dialysis Past Surgical History: Reports: Hx Abdominal Surgery - feeding tube - Immunizations Immunizations up to date: Yes Hx Diphtheria, Pertussis, Tetanus Vaccination: Yes Review of Systems - Review of Systems -: Yes ROS unobtainable due to patient's medical condition - She has dementia and is unable to answer questions. Physical Exam - Vital signs Vitals: Temp Pulse Resp BP Pulse Ox 98.5 F 91 18 136/87 H 98 07/30/19 12:42 07/30/19 12:42 07/30/19 12:42 07/30/19 12:42 07/30/19 12:42 - Notes Notes: PHYSICAL EXAMINATION: Physical Exam: General: Frail 89-year-old woman in no acute distress HEENT: NC/AT, pupils equal round and reactive to light, MM moist,nares clear, oropharynx clear, airway patent Neck: supple, no adenopathy, no masses. Good range of motion Lungs: clear, no wheezing, no rales no rhonchi CVS: Regular rate and rhythm no murmur gallop or rub Abdomen: Soft, active, G-tube at the left upper quadrant of the abdomen, Mccray catheter has been placed recently removed and a 18 Albanian G-tube replaced. Ext: No edema, clubbing or cyanosis. Neuro: Alert and responsive, moving all 4 extremities on command, cranial nerves intact, no focal findings Skin: Intact no open lesions, no rash PSYCH: Normal mood, normal affect. Course - Vital Signs Vital signs: Temp Pulse Resp BP Pulse Ox 98.5 F 91 18 136/87 H 98 07/30/19 12:43 07/30/19 12:42 07/30/19 12:42 07/30/19 12:42 07/30/19 12:42 - Diagnostic Test Radiology reviewed: Image reviewed, Reports reviewed - KUB: Gastrografin in the pylorus of the stomach without difficulty. There is no extravasation seen. Discharge - Discharge Clinical Impression: Gastrostomy tube dysfunction Condition: Good Disposition: HOME, SELF-CARE Additional Instructions: The feeding tube was replaced today in the emergency department, x-ray shows that it is in good position and functional. Please use and flush with care. Follow-up with your doctors as needed. If you have further difficulties or questions you may return to the emergency department for further evaluation HOME CARE INSTRUCTIONS & INFORMATION: Thank you for choosing us for your medical needs. We hope you're satisfied with the care you received. After you leave, you must properly care for your problem and, at the same time, observe its progress. Any condition can change. Some illnesses can change rapidly over hours or days. If your condition worsens, return to the Emergency Department or see your physician promptly. ABOUT YOUR X-RAYS AND EKG'S: If you had an EKG or X-rays taken, they have been read by the Emergency Physician. The X-rays and EKG's will also be read by a Radiologist or Card Assembler within 24 hours. If discrepancies are noted, you will be notified by telephone. Please be certain the ED has a correct telephone number & address where you can be reached. Also, realize that some fractures or abnormalities do not show up on initial X-rays. If your symptoms continue, see your physician. ABOUT YOUR LABORATORY TEST: If you had laboratory tests, the results have been reviewed by the Emergency Physician. Some test results (for example cultures) may not be available for several days. You will be contacted if any test result shows you need additional treatment. Please be certain the ED has a correct telephone number and address where you can be reached. ABOUT YOUR MEDICATIONS: You will receive instructions on how to take your medicine on the prescription label you receive. Additional information may be provided by the Pharmacy. If you have questions afterwards, call the ED for clarification or further instructions. Some prescribed medications may cause drowsiness. Do not perform tasks such as driving a car or operating machinery without consulting your Pharmacist. If you feel you need a refill of pain medication, your condition will need re-evaluation. Please do not call for a refill of any medication. ABOUT YOUR SIGNATURE: Signature of this document acknowledges to followin. Understanding that you received emergency treatment and that you may be released before al medical problems are known or treated. Please be certain the ED has a correct phone number & address where you can be reached. 2. Acknowledgement that you will arrange for follow-up care as recommended. 3. Authorization for the Emergency Physician to provide information to your follow-up Physician in order to maximize your care. AT ANY TIME, IF YOUR SYMPTOMS CHANGE SIGNIFICANTLY OR WORSEN OR YOU DEVELOP NEW SYMPTOMS, RETURN TO THE EMERGENCY DEPARTMENT IMMEDIATELY FOR RE-EVALUATION. OUR GOAL IS TO PROVIDE EXCELLENT MEDICAL CARE! WE HOPE THAT WE HAVE MET YOUR EXPECTATIONS DURING YOUR EMERGENCY DEPARTMENT VISIT AND THAT YOU FEEL YOU HAVE RECEIVED EXCELLENT CARE! Referrals: LAURA WEIR, DO [Primary Care Provider] - Follow up as needed
--- NOTE | 2019-07-30 14:25 | RADIOLOGY REPORT (SQ) ---
EXAM DESCRIPTION: KUB/ABDOMEN (SINGLE VIEW) IMAGES COMPLETED DATE/TIME: 07/30/2019 2:04 pm REASON FOR STUDY: G-tube placement COMPARISON: None. NUMBER OF VIEWS: One view. TECHNIQUE: Supine radiographic image of the abdomen acquired. LIMITATIONS: None. FINDINGS: BOWEL GAS PATTERN: Non-obstructive bowel gas pattern. No dilated loops. CALCIFICATIONS: No suspicious calcifications. SOFT TISSUES: No gross mass or suggestion of organomegaly. HARDWARE: G-tube injection shows contrast in the pyloric region of the stomach and duodenum. BONES: No acute fracture. No worrisome bone lesions. OTHER: No other significant finding. IMPRESSION: G-tube injection shows contrast in the pyloric region of the stomach and duodenum. TECHNICAL DOCUMENTATION: JOB ID: [id number] 2010 [employer]- All Rights Reserved Reading location - IP/workstation name: [email or web address]
[2019-07-30 17:26] VITALS: BP 127/64
== END 2019-07-30 17:26 | disposition home or self-care (01) ==
LOC: ER 12:30
DX: T85.528A Displacement of other gastrointestinal prosthetic devices, implants and grafts, initial encounter (principal); F03.90 Unspecified dementia, unspecified severity, without behavioral disturbance, psychotic disturbance, mood disturbance, and anxiety; Z88.0 Allergy status to penicillin; I48.91 Unspecified atrial fibrillation
CPT/HCPCS: 74018; 99283

== ENCOUNTER 2019-08-25 10:15 | Emergency (ER) | payer MEDICARE, OTHER ==
[2019-08-25 11:01] LABS: VENOUS BLOOD HCO3 23.6 mmol/L (20-32); VENOUS BLOOD PCO2 43.6 mmHg (35-63); VENOUS BLOOD PH 7.35 (7.30-7.42)
[2019-08-25 11:06] LABS: INTERNATIONAL RATION (INR) 1.15; PROTHROMBIN TIME 14.8 SEC (11.4-15.4)
[2019-08-25 11:18] LABS: ABSOLUTE EOSINOPHILS # (AUTO) 0.1 10^3/uL (0.0-0.6); ABSOLUTE LYMPHOCYTES (AUTO) 1.5 10^3/uL (0.5-4.7); ABSOLUTE MONOCYTES (AUTO) 0.5 10^3/uL (0.1-1.4); ABSOLUTE NEUT (AUTO) 3.5 10^3/uL (1.7-8.2); BASOPHILS % (AUTO) 0.4 % (0-2); EOSINOPHILS % (AUTO) 1.9 % (0-6); HEMATOCRIT 36.9 % (36.0-47.0); HEMOGLOBIN 12.5 g/dL (12.0-15.5); LYMPHOCYTES % (AUTO) 26.6 % (13-45); MEAN CORPUSCULAR HEMOGLOBIN 32.3 pg (27.0-33.4); MEAN CORPUSCULAR HGB CONC 33.9 g/dL (32.0-36.0); MEAN CORPUSCULAR VOLUME 95 fl (80-97); MONOCYTES % (AUTO) 8.4 % (3-13); PLATELET COUNT 198 10^3/uL (150-450); RED BLOOD COUNT 3.88 10^6/uL (3.72-5.28); RED CELL DISTRIBUTION WIDTH 13.8 % (11.5-14.0); SEGMENTED NEUTROPHILS % (AUTO) 62.7 % (42-78); TOTAL CELLS COUNTED % (AUTO) 100 %; WHITE BLOOD COUNT 5.6 10^3/uL (4.0-10.5)
[2019-08-25 11:24] LABS: ALBUMIN 3.7 g/dL (3.5-5.0); ALKALINE PHOSPHATASE 109 U/L (38-126); ANION GAP 5 (5-19); ASPARTATE AMINO TRANSFERASE 36 U/L (14-36); BILIRUBIN,TOTAL 0.5 mg/dL (0.2-1.3); BLOOD UREA NITROGEN 21 mg/dL (7-20); CALCIUM 9.1 mg/dL (8.4-10.2); CARBON DIOXIDE 27 mmol/L (22-30); CHLORIDE 108 mmol/L (98-107); GLUCOSE 121 mg/dL (75-110); TOTAL PROTEIN 7.6 g/dL (6.3-8.2)
--- NOTE | 2019-08-25 12:57 | ER Document Report ---
ED General - General Chief Complaint: pulled out Peg tube Stated Complaint: PULLED OUT FEEDING TUBE Time Seen by Provider: 08/25/19 11:40 Primary Care Provider: LAURA ARGUELLO DO [Primary Care Provider] - Follow up as needed TRAVEL OUTSIDE OF THE [place] IN LAST 30 DAYS: No - HPI Notes: Chief complaint: PEG tube replacement and concern about infection at insertion site History of present illness: 89-year-old female followed by Dr. 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 They are also concerned because she has had some purulent drainage at the site. No fever or vomiting reported. Patient is otherwise at her usual baseline - Related Data Allergies/Adverse Reactions: Penicillins Allergy (Verified 07/14/19 09:03) Home Medications: Pt. arrived via EMS after they were called to the home by family. C/O pt. had pulled out Peg Tube. EMS stated that dressing on insertions site was saturated with purulant green drainage. EMS also stated that caregiver(son) said dressing was dry last night. Caregiver would not give list of current medications, stating we have them in her file. Upon arrivl pt. is awake but confused. Does answer to her name with head nod, but otherwise does not respond to questions. Pt. speaks limited french, but understands when spoken to. Peg Tube site is ozing green drainage, pt. was also found to be solied with foul smelling urine. Past Medical History - General Information source: Relative, [facility] Records Cannot obtain history due to: Dementia - Social History Smoking Status: Unknown if Ever Smoked Family History: Reviewed & Not Pertinent, Other - ams Patient has homicidal ideation: No - Past Medical History Cardiac Medical History: Reports: Hx Atrial Fibrillation Neurological Medical History: Reports: Hx Cerebrovascular Accident Renal/ Medical History: Denies: Hx Peritoneal Dialysis Past Surgical History: Reports: Hx Abdominal Surgery - feeding tube - Immunizations Immunizations up to date: Yes Hx Diphtheria, Pertussis, Tetanus Vaccination: Yes Review of Systems - Review of Systems -: Yes ROS unobtainable due to patient's medical condition Physical Exam - Vital signs Vitals: Temp 98.3 F 08/25/19 10:16 - Notes Notes: GENERAL: Elderly female who is nonverbal and somewhat uncooperative as per usual baseline. SKIN: Good turgor no rashes. HEAD: Normocephalic atraumatic. EYES: PERRLA. EOMI. Conjunctivae and sclerae clear. EARS: CANALS AND TMS CLEAR. NOSE: CLEAR. MOUTH: Moist mucosa. Good dentition. No stridor or edema. No drooling. NECK: Supple. No masses or thyromegaly. No adenopathy. Carotids 2+ without bruits. No JVD. BACK: Symmetrical without tenderness. CHEST: Respirations unlabored. Breath sounds clear and symmetrical. HEART: Regular rhythm. No murmur gallop or rub. ABDOMEN: Ostomy for PEG tube noted in epigastrium. Tube is been previously removed. She has a small amount of purulent discharge at the site. There is no fluctuance or significant redness or tenderness. Soft nontender without masses, organomegaly or rebound. Bowel sounds normally active. No bruits. GENITALIA: Deferred. EXTREMITIES: No edema. No calf tenderness. Cap refill less than 1.5 seconds. Dorsalis pedis and posterior tibial pulses 3+ and symmetrical. NEUROLOGICAL: Nonverbal. Alert with eyes open. Moving extremities symmetrically. Course - Re-evaluation Re-evalutation: 08/25/19 12:56 I replaced the PEG tube without difficulty. We will get a follow-up KUB with contrast through the tube to assure appropriate placement. We checked a CBC and conference of metabolic profile today and these are unremarkable. Patient has n o fever. I cultured the drainage at the PEG site and we will prescribe antibiotic treatment. 08/25/19 13:59 G-tube placement is confirmed with administration of contrast through the tube. Patient will be discharged at this time. - Vital Signs Vital signs: Temp Pulse Resp BP Pulse Ox 98.3 F 27 H 90/44 L 94 08/25/19 10:16 08/25/19 12:27 08/25/19 12:27 08/25/19 12:27 - Laboratory Result Diagrams: 08/25/19 10:35 08/25/19 10:35 Laboratory results interpreted by me: 08/25/19 08/25/19 10:35 11:06 Chloride 108 H BUN 21 H Glucose 121 H POC Glucose 113 H Procedures - Additional Procedures Gastric tube replacement Time performed: 12:45 Additional Procedures: Gastric tube replacement - 18 Amharic G-tube reinserted without difficulty after the site was prepped with ChloraPrep. Balloon was inflated with 6 cc of saline. KUB with contrast injection ordered to confirm tube placement. Discharge - Discharge Clinical Impression: G-tube complication Condition: Stable Disposition: HOME, SELF-CARE Additional Instructions: Clean gastric tube insertion site daily with soap and water and dry the area thoroughly. Apply Neosporin ointment to the site at the time of dressing changes. Take prescribed antibiotic medication. Continue usual feedings and medications through G-tube as previously prescribed. Return here as needed for new or worsening symptoms: Pain that is worsening or unimproved Uncontrolled vomiting High fever or shaking chills Overall worsening Follow-up with primary care physician within the next 1 week. Prescriptions: Sulfamethoxazole/Trimethoprim [Septra Susp 800-160 mg/20 ml Udcup] 20 ml PO BID 10 Days #400 ml Referrals: LAURA ARGUELLO DO [Primary Care Provider] - Follow up as needed
--- NOTE | 2019-08-25 13:39 | RADIOLOGY REPORT (SQ) ---
EXAM DESCRIPTION: INJECT EXISTING/TUBE PLACEMENT IMAGES COMPLETED DATE/TIME: 08/25/2019 1:28 pm REASON FOR STUDY: G-tube replacement COMPARISON: None. TECHNIQUE: 20 cc omni 300 injected via the G-tube. Radiographic acquired. LIMITATIONS: None. FINDINGS: G-tube is in appropriate location the antrum of the stomach. Hiatal hernia. No obstructi on. IMPRESSION: Appropriate location of the G-tube. TECHNICAL DOCUMENTATION: JOB ID: [id number] 2010 [employer]- All Rights Reserved FLUOROSCOPY TIME: None Reading location - IP/workstation name: [email or web address]
[2019-08-25 15:37] VITALS: BP 104/71
--- NOTE | 2019-08-25 19:35 | EKG REPORT ---
SEVERITY:- ABNORMAL ECG - UNKNOWN RHYTHM, IRREGULAR RATE 72-115 FIRST DEGREE AV BLOCK CONSIDER ANTEROSEPTAL INFARCT : Confirmed by: Sabrina Craig MD 25-Aug-2019 19:35:00
== END 2019-08-25 16:00 | disposition home or self-care (01) ==
LOC: ER 10:15
DX: K94.23 Gastrostomy malfunction (principal); F03.90 Unspecified dementia, unspecified severity, without behavioral disturbance, psychotic disturbance, mood disturbance, and anxiety; I48.91 Unspecified atrial fibrillation; Z88.0 Allergy status to penicillin; Z86.73 Personal history of transient ischemic attack (TIA), and cerebral infarction without residual deficits
CPT/HCPCS: 36415; 49465; 80053; 82803; 82962; 83605; 85025; 85610; 87040; 87070; 87077; 87186; 87205; 93005; 93010; 99283

== ENCOUNTER 2019-11-23 18:35 | Emergency (ER) | payer MEDICARE, OTHER ==
--- NOTE | 2019-11-23 20:25 | ER Document Report ---
Entered by JONATHAN WILKINS SCRIBE 11/23/191904 Acting as scribe for:MEERA BELLA DO ED General - General Stated Complaint: FEEDING TUBE PROBLEM Time Seen by Provider: 11/23/19 18:50 Primary Care Provider: LAURA WEIR DO [Primary Care Provider] - Follow up as needed Information source: Relative, [facility] Records Cannot obtain history due to: Dementia Notes: This 89 year old female patient presents to the emergency department today with problems with her feeding tube. History is unobtainable by patient due to history of CVA and Dementia. Relative states patient speaks limited Iranian and is usually quiet. Patient's feeding tube was placed x2 years ago after her CVA and does not take anything by mouth. Relative denies any symptoms and main concern is recent problems with her feeding tube. TRAVEL OUTSIDE OF THE [place] IN LAST 30 DAYS: No - Related Data Allergies/Adverse Reactions: Penicillins Allergy (Verified 07/14/19 09:03) Sulfa (Sulfonamide Antibiotics) Allergy (Verified 11/23/19 18:47) Past Medical History - General Information source: Relative, [facility] Records Cannot obtain history due to: Dementia - Social History Smoking Status: Unknown if Ever Smoked Family History: Reviewed & Not Pertinent, Other - ams - Past Medical History Cardiac Medical History: Reports: Hx Atrial Fibrillation Neurological Medical History: Reports: Hx Cerebrovascular Accident Renal/ Medical History: Denies: Hx Peritoneal Dialysis Psychiatric Medical History: Reports: Hx Dementia Past Surgical History: Reports: Hx Abdominal Surgery - feeding tube - Immunizations Immunizations up to date: Yes Hx Diphtheria, Pertussis, Tetanus Vaccination: Yes Review of Systems - Review of Systems -: Yes ROS unobtainable due to patient's medical condition Physical Exam - Vital signs Vitals: Temp Pulse Resp BP Pulse Ox 97.9 F 91 18 142/89 H 96 11/23/19 18:46 11/23/19 18:46 11/23/19 18:46 11/23/19 18:46 11/23/19 18:46 - General Notes: Alert. Elderly female who appears frail and is quiet. - HEENT Head: Normocephalic, Atraumatic Eyes: Normal Pupils: PERRL - Respiratory Respiratory status: No respiratory distress Chest status: Nontender Breath sounds: Normal Chest palpation: Normal - Cardiovascular Rhythm: Regular Heart sounds: Normal auscultation Murmur: No - Abdominal Inspection: Obese Distension: No distension Bowel sounds: Normal Tenderness: Nontender Notes: 18 Mongolian G-tube midline and 3 cm superior to the umbilicus. - Extremities General upper extremity: Normal inspection Foot: Other - Onychomycosis bilaterally Notes: No pitting edema of bilateral lower extremities. - Neurological Notes: Alert with eyes open. Language is limited, quiet. - Psychological Associated symptoms: Normal affect, Normal mood - Skin Skin Temperature: Warm Skin Moisture: Dry Skin Color: Normal Course - Re-evaluation Re-evalutation: 11/23/19 19:34 MDM Donavon frail 89 year German is here due to dysfunction of feeding tube. History over phone from son. Procedure. After the 18 F feeding tube was removed a new 18 F feeding was inserted easily with no difficulty. An xray is currently pending. - Vital Signs Vital signs: Temp Pulse Resp BP Pulse Ox 97.9 F 91 18 142/89 H 96 11/23/19 18:46 11/23/19 18:46 11/23/19 18:46 11/23/19 18:46 11/23/19 18:46 Discharge - Discharge Clinical Impression: Gastrostomy tube dysfunction, Gastrostomy tube obstruction Condition: Stable Disposition: HOME, SELF-CARE Instructions: Transdermal Gastric Tube Placement ([facility]) Additional Instructions: Use the tube as you would the previous tube. Please return here for fever, chills, chest pain or shortness of breath. Take your medcine as directed. Referrals: LAURA WEIR DO [Primary Care Provider] - Follow up as needed I personally performed the services described in the documentation, reviewed and edited the documentation which was dictated to the scribe in my presence, and it accurately records my words and actions.
[2019-11-23 22:53] VITALS: BP 111/64
--- NOTE | 2019-11-23 23:24 | RADIOLOGY REPORT (SQ) ---
EXAM DESCRIPTION: Portable supine AP abdomen CLINICAL HISTORY: 89 years, Female, tube placement COMPARISON: Portable supine AP abdomen July 30, 2019 TECHNIQUE: Portable supine AP abdomen FINDINGS: There is a percutaneous enteric tube within the gastric antrum. The administration of enteric contrast remains within the gastric and proximal small bowel lumen. There is also small reflux of contrast into the distal esophagus. There is no evidence of contrast leak into the peritoneal space. The bowel gas pattern is normal. There is no evidence of free air. There are no abnormal masses or calcifications. Limited evaluation of the liver, spleen, and kidneys demonstrate no gross abnormalities. The osseous structures are age appropriate. IMPRESSION: 1. Percutaneous enteric tube is in the gastric antrum without evidence of leak. 2. Reflux of contrast in the distal esophagus. 3. Otherwise no acute intra-abdominal process.
== END 2019-11-23 23:41 | disposition home or self-care (01) ==
LOC: ER 18:35
DX: K94.23 Gastrostomy malfunction (principal); Y83.3 Surgical operation with formation of external stoma as the cause of abnormal reaction of the patient, or of later complication, without mention of misadventure at the time of the procedure; F03.90 Unspecified dementia, unspecified severity, without behavioral disturbance, psychotic disturbance, mood disturbance, and anxiety; E66.9 Obesity, unspecified; I48.91 Unspecified atrial fibrillation; Z86.73 Personal history of transient ischemic attack (TIA), and cerebral infarction without residual deficits
CPT/HCPCS: 49465; 99284

== ENCOUNTER 2019-11-24 11:39 | Inpatient (IN) | payer MEDICARE, OTHER ==
--- NOTE | 2019-11-24 13:41 | ER Document Report ---
ED General - General Chief Complaint: Problem with Feeding Tube Stated Complaint: G TUBE PROBLEM Time Seen by Provider: 11/24/19 11:43 Primary Care Provider: LAURA ARGUELLO DO [Primary Care Provider] - Follow up as needed TRAVEL OUTSIDE OF THE [place] IN LAST 30 DAYS: No - HPI Notes: Chief complaint: G-tube replacement History of present illness: Elderly female but Dr. Arguello with past history of dementia and old CVA notes with dislodgment of her G-tube. The patient has been seen here under similar circumstances multiple times in the past several years. Caregivers report that the tube was in place at bedtime last night and out this morning and then I did provide much additional information. Patient seems to be at her usual baseline otherwise. - Related Data Allergies/Adverse Reactions: Penicillins Allergy (Verified 07/14/19 09:03) Sulfa (Sulfonamide Antibiotics) Allergy (Verified 11/23/19 18:47) Past Medical History - General Information source: Emergency Med Personnel, [facility] Records Cannot obtain history due to: Dementia - Social History Smoking Status: Unknown if Ever Smoked Frequency of alcohol use: None Drug Abuse: None Family History: Reviewed & Not Pertinent, Other - ams Patient has homicidal ideation: No - Past Medical History Cardiac Medical History: Reports: Hx Atrial Fibrillation, Hx Hypertension Neurological Medical History: Reports: Hx Cerebrovascular Accident Renal/ Medical History: Denies: Hx Peritoneal Dialysis Psychiatric Medical History: Reports: Hx Dementia Past Surgical History: Reports: Hx Abdominal Surgery - feeding tube - Immunizations Immunizations up to date: Yes Hx Diphtheria, Pertussis, Tetanus Vaccination: Yes Review of Systems - Review of Systems -: Yes ROS unobtainable due to patient's medical condition Physical Exam - Vital signs Vitals: Temp 97.4 F 11/24/19 11:50 - Notes Notes: GENERAL: Elderly female alert but no intelligible speech which is apparently her usual baseline otherwise appearing in no acute distress. SKIN: Good turgor no rashes. HEAD: Normocephalic atraumatic. EYES: PERRLA. EOMI. Conjunctivae and sclerae clear. NECK: Supple. No masses or thyromegaly. No adenopathy. Carotids 2+ without bruits. No JVD. BACK: Symmetrical without tenderness. CHEST: Respirations unlabored. Breath sounds clear and symmetrical. HEART: Regular rhythm. No murmur gallop or rub. ABDOMEN: G-tube ostium present in epigastrium. Small amount of serosanguineous drainage here. Soft nontender without masses, organomegaly or rebound. Bowel sounds normally active. No bruits. EXTREMITIES: No edema. No calf tenderness. Cap refill less than 1.5 seconds. Dorsalis pedis and posterior tibial pulses 3+ and symmetrical. NEUROLOGICAL: Alert and oriented x3. Nonfocal. PSYCHIATRIC: Appropriate affect. Course - Re-evaluation Re-evalutation: 11/24/19 13:39 There was moderate amount of resistance as I attempted to insert a G-tube. I obtained a follow-up neuro study and radiologist confirms that the tube is not in the stomach. This will be removed and we will consult surgery. 11/24/19 14:01 Additional history is been obtained from her son Colton Malhotra at . This patient is actually living at home and son is her principal consulting psychologist. He says she has no ability to swallow and takes all feedings and fluids as well as her medications through the PEG tube. I have explained to him that the tube is no longer functioning and he feels strongly that he would like a PEG tube replaced. Findings are discussed with the on-call surgeon, Dr. Kapoor, who will see the patient for consultation and replacement of the PEG tube. He suggested we admit this lady on medicine service to receive IV fluids and warm soaks to the abdominal wall area. Routine labs have been ordered. He would like patient to be started also on antibiotics. 11/24/19 14:18 Patient is accepted for admission to the medical floor by Dr. Carver. - Vital Signs Vital signs: Temp Pulse Resp BP Pulse Ox 97.4 F 91 13 131/71 H 97 11/24/19 12:06 11/24/19 12:06 11/24/19 12:06 11/24/19 12:06 11/24/19 12:06 - Laboratory Result Diagrams: 11/24/19 14:05 11/24/19 14:05 Procedures - Additional Procedures Gastric tube replacement Time performed: 13:00 Additional Procedures: Gastric tube replacement Notes: 11/24/19 13:41 Moderate resistance on insertion of the tube. Balloon inflates easily however. Will request Gastrografin study for confirmation of placement. Discharge - Discharge Clinical Impression: PEG tube malfunction, Cellultis Abdominal Wall, old CVA Condition: Good Disposition: ADMITTED INPATIENT Admitting Provider: Wen (Hospitalist) Unit Admitted: Medical Floor Referrals: LAURA ARGUELLO DO [Primary Care Provider] - Follow up as needed
[2019-11-24] MEDS ORDERED: NORMAL SALINE 1000 ML 1,000 ML IV ONE (13:47)
[2019-11-24] MEDS ORDERED: METRONIDAZOLE 500 MG/NS RTU 500 MG/100 ML RTUPB IV ONE (14:04)
[2019-11-24 14:37] LABS: ALBUMIN 4.1 g/dL (3.5-5.0); ALKALINE PHOSPHATASE 114 U/L (38-126); ANION GAP 9 (5-19); ASPARTATE AMINO TRANSFERASE 31 U/L (14-36); BILIRUBIN,DIRECT 0.2 mg/dL (0.0-0.4); BILIRUBIN,TOTAL 0.8 mg/dL (0.2-1.3); BLOOD UREA NITROGEN 16 mg/dL (7-20); CALCIUM 9.3 mg/dL (8.4-10.2); CARBON DIOXIDE 25 mmol/L (22-30); CHLORIDE 104 mmol/L (98-107); GLUCOSE 111 mg/dL (75-110); POTASSIUM 4.5 mmol/L (3.6-5.0); TOTAL PROTEIN 7.6 g/dL (6.3-8.2)
--- NOTE | 2019-11-24 15:05 | RADIOLOGY REPORT (SQ) ---
EXAM DESCRIPTION: INJECT EXISTING/TUBE PLACEMENT IMAGES COMPLETED DATE/TIME: 11/24/2019 1:39 pm REASON FOR STUDY: contrast for conf. of G-tube placement COMPARISON: 11/23/2019 FLUOROSCOPY TIME: 0.2 minutes 3 images saved to PACS. TECHNIQUE: Injection of contrast through existing catheter. Fluoroscopic spot films saved to PACS d emonstrating final catheter position. LIMITATIONS: None. FINDINGS: CONTRAST INJECTED: Less than 5 mL Omnipaque TUBE POSITION: Instilled contrast migrates to the left pericolic recess. No contrast is demonstrated within the stomach. IMPRESSION: Malpositioned G-tube. COMMENT: The evaluating physician was notified of abnormal findings. Quality ID [id number]: Final reports for procedures using fluoroscopy that document radiation exposure arnulfo joseph, or exposure time and number of fluorographic images (if radiation exposure indices are not avail able) TECHNICAL DOCUMENTATION: JOB ID: [id number] 2010 [employer]- All Rights Reserved Reading location - IP/workstation name: [email or web address]
[2019-11-24 16:05] LABS: ABSOLUTE LYMPHOCYTES (AUTO) 1.3 10^3/uL (0.5-4.7); ABSOLUTE MONOCYTES (AUTO) 0.6 10^3/uL (0.1-1.4); ABSOLUTE NEUT (AUTO) 5.1 10^3/uL (1.7-8.2); BASOPHILS % (AUTO) 0.4 % (0-2); EOSINOPHILS % (AUTO) 0.6 % (0-6); HEMATOCRIT 39.2 % (36.0-47.0); LYMPHOCYTES % (AUTO) 18.3 % (13-45); MEAN CORPUSCULAR HEMOGLOBIN 33.3 pg (27.0-33.4); MEAN CORPUSCULAR HGB CONC 35.6 g/dL (32.0-36.0); MEAN CORPUSCULAR VOLUME 94 fl (80-97); MONOCYTES % (AUTO) 8.7 % (3-13); PLATELET COUNT 170 10^3/uL (150-450); TOTAL CELLS COUNTED % (AUTO) 100 %; WHITE BLOOD COUNT 7.1 10^3/uL (4.0-10.5)
[2019-11-24] MEDS ORDERED: DEXTROSE 50%-WATER 25 GM/50 ML DISP.SYRIN IV PRN ×2 (16:25)
[2019-11-24] MEDS ORDERED: GLUCAGON,HUMAN RECOMB 1 MG INJ SUBCUT PRN (16:25)
[2019-11-24] MEDS ORDERED: DEXTROSE 40% GEL 15 GM TUBE PO PRN ×2 (16:25)
[2019-11-24] MEDS ORDERED: DEXTROSE 5%-LACTATED RINGERS 1,000 ML IV PRN (16:29)
[2019-11-24] MEDS ORDERED: ENOXAPARIN SODIUM INJ 40 MG/0.4 ML DISP.SYRIN SUBCUT SCH (17:30)
[2019-11-24 17:49] LABS: ANION GAP 12 (5-19); BLOOD UREA NITROGEN 13 mg/dL (7-20); CARBON DIOXIDE 25 mmol/L (22-30); CHLORIDE 104 mmol/L (98-107); GLUCOSE 112 mg/dL (75-110)
[2019-11-24] MEDS ORDERED: CEFAZOLIN 2 GM/D5W RTU 2 GM/50 ML RTUPB IV SCH (18:00)
[2019-11-24] MEDS ORDERED: METOPROLOL TARTRATE PF/INJ 5 MG/5 ML SDV IV PRN (18:10)
--- NOTE | 2019-11-24 18:13 | PDOC H&P ---
History of Present Illness Admission Date/PCP: 11/24/19 14:27 LAURA WEIR DO Patient complains of: displaced G tube History of Present Illness: ANGIE MEDINA is a 89 year old female, PMH of Stroke, atrial fibrillation on eliquis, g tube placement for feeding who was admitted from the ED due to a dislodged G tube. Patient has had the G tube for about 2 years and has been in the ED multiple times due to dislodged G tube. She was brought to the ED yesterday due to a leaking feeding tube. It was replaced in the ED and was discharged back home. This morning her son noted that her feeding tube fell out of her stomach hence she was brought back to the ED. ED physician tried to replace her feeding tube again but was unable to hence surgery was consulted who recommended PEG tube placement. There was also note of serosanguinous discharge around the G tube area. Son denies any fever. Past Medical History Cardiac Medical History: Reports: Atrial Fibrillation, Hypertension Pulmonary Medical History: Reports: None EENT Medical History: Reports: None Neurological Medical History: Reports: Ischemic CVA Endocrine Medical History: Reports: None Renal/ Medical History: Reports: None Malignancy Medical History: Reports: None GI Medical History: Reports: None Musculoskeltal Medical History: Reports: None Skin Medical History: Reports: None Psychiatric Medical History: Reports: Dementia Hematology: Reports: None Infectious Medical History: Reports: None Past Surgical History Past Surgical History: Reports: Other - G tube placement Social History Information Source: Relative Lives with: Family Smoking Status: Unknown if Ever Smoked Drugs: None Hx Prescription Drug Abuse: No Family History Family History: Reviewed & Not Pertinent, Other - ams Parental Family History Reviewed: Yes Children Family History Reviewed: Yes Sibling(s) Family History Reviewed.: Yes Medication/Allergy Home Medications: Apixaban [Eliquis 5 mg Tablet] 5 mg PO BID 11/24/19 Metoprolol Tartrate [Lopressor 25 mg Tablet] 12.5 mg PO Q12 11/24/19 Sertraline HCl 50 mg PO QHS 11/24/19 Allergies/Adverse Reactions: Penicillins Allergy (Verified 07/14/19 09:03) Sulfa (Sulfonamide Antibiotics) Allergy (Verified 11/23/19 18:47) Review of Systems ROS unobtainable: Due to mental status Physical Exam Vital Signs: Temp Pulse Resp BP Pulse Ox 97.5 F 104 H 16 133/86 H 98 11/24/19 16:30 11/24/19 16:30 11/24/19 16:30 11/24/19 16:30 11/24/19 16:30 Intake & Output 11/23/19 11/24/19 11/25/19 06:59 06:59 06:59 Intake Total 100 Balance 100 Weight 75.7 kg General appearance: PRESENT: no acute distress, cooperative Head exam: PRESENT: atraumatic, normocephalic Eye exam: PRESENT: EOMI, PERRLA Mouth exam: PRESENT: moist Neck exam: PRESENT: full ROM Respiratory exam: PRESENT: clear to auscultation nancy, symmetrical, unlabored. ABSENT: rales, wheezes Cardiovascular exam: PRESENT: RRR, +S1, +S2 GI/Abdominal exam: PRESENT: normal bowel sounds, soft, tenderness, other - G tube site minimal serosangiounous discharge, non tender Extremities exam: ABSENT: calf tenderness, joint swelling Musculoskeletal exam: PRESENT: normal inspection Neurological exam: PRESENT: alert, awake, other - minimally verbal Skin exam: PRESENT: normal color Results Laboratory Results: 11/24/19 15:50 11/24/19 11/24/19 11/24/19 14:05 14:05 15:50 WBC Cancelled 7.1 RBC Cancelled 4.20 Hgb Cancelled 14.0 Hct Cancelled 39.2 MCV Cancelled 94 MCH Cancelled 33.3 MCHC Cancelled 35.6 RDW Cancelled 14.0 Plt Count Cancelled 170 Seg Neutrophils % Cancelled 72.0 Sodium 138.3 Potassium 4.5 Chloride 104 Carbon Dioxide 25 Anion Gap 9 BUN 16 Creatinine 0.53 Est GFR ( Amer) > 60 Glucose 111 H Calcium 9.3 Total Bilirubin 0.8 AST 31 Alkaline Phosphatase 114 Total Protein 7.6 Albumin 4.1 Impressions: Tube Placement 11/24/19 12:00 IMPRESSION: Malpositioned G-tube. Assessment and Plan - Diagnosis (1) Gastrostomy tube dysfunction Is this a current diagnosis for this admission?: Yes Plan: - patient had a PEG placed 2 years prior after a stroke. Has been in the ED multiple times due to dislodged G tube - came in last night due to dislodged G tube was replaced but then was dislodged again this morning. unable to be replaced in the ED - minimal serosanguinous discharge - Surgery consulted who recommended PEG tube placement via EGD and abx prior - NPO, place on D5LR - accucheck q6 - clinda for abx. Patient allergic to penicillin (2) History of stroke Is this a current diagnosis for this admission?: Yes Plan: - 2 years ago. G tube placed then for feeding - on eliquis - not on aspirin or statin (3) Atrial fibrillation Qualifiers: Atrial fibrillation type: unspecified Qualified Code(s): I48.91 - Unspecified atrial fibrillation Is this a current diagnosis for this admission?: Yes Plan: - hx of a.fib. patient had a stroke 2017 - NPO due to dislodged G tube - lovenox 40 mg daily - metoprolol for rate control switched to IV (4) Dementia Qualifiers: Dementia type: vascular dementia Dementia behavioral disturbance: without behavioral disturbance Qualified Code(s): F01.50 - Vascular dementia without behavioral disturbance Is this a current diagnosis for this admission?: Yes - Time Time Spent with patient: 25-34 minutes Anticipated Discharge Disposition: Home, Self Care Anticipated Discharge Timeframe: to be determined - Inpatient Certification Based on my medical assessment, after consideration of the patient's comorbidities, presenting symptoms, or acuity I expect that the services needed warrant INPATIENT care.: Yes I certify that my determination is in accordance with my understanding of Medicare's requirements for reasonable and necessary INPATIENT services [42 CFR 412.3e].: Yes Medical Necessity: Need for Surgery
[2019-11-24] MEDS ORDERED: DOXYCYCLINE HYCLATE INJ 100 MG VIAL IV SCH (18:45)
[2019-11-24] MEDS: CLINDAMYCIN 600 MG/D5W RTU 600 MG/50 ML RTUPB IV SCH (18:56)
--- NOTE | 2019-11-24 19:29 | PDOC CONSULTATION ---
Consultation Consult Date: 11/24/19 Provider Consulted: URSULA HALLMAN History of Present Illness Admission Date/PCP: 11/24/19 14:27 LAURA WEIR DO Patient complains of: Malposition of PEG History of Present Illness: ANGIE MEDINA is a 89 year old female, with dimension, atrial fibrillation on E liquis who has presented to the emergency room today with a complaint of drainage from the PEG site as well as difficulty using it. The patient came to the emergency room yesterday after she pulled the PEG tube and this was reinserted with good position verified by fluoroscopy. Today, when the patient presented to the emergency room the ED physician was unable to reinsert the G- tube, fluoroscopy demonstrated malposition of the G-tube, and drainage was noted from the G-tube site. In addition, on physical exam she has a hard mass surrounding the G-tube site has per subcutaneous abscess. Past Medical History Cardiac Medical History: Reports: Atrial Fibrillation, Hypertension Pulmonary Medical History: Reports: None EENT Medical History: Reports: None Neurological Medical History: Reports: Ischemic CVA Endocrine Medical History: Reports: None Renal/ Medical History: Reports: None Malignancy Medical History: Reports: None GI Medical History: Reports: None Musculoskeltal Medical History: Reports: None Skin Medical History: Reports: None Psychiatric Medical History: Reports: Dementia Denies: Depression Hematology: Reports: None Infectious Medical History: Reports: None Past Surgical History Past Surgical History: Reports: Other - G tube placement Social History Lives with: Family Smoking Status: Unknown if Ever Smoked Drugs: None Hx Prescription Drug Abuse: No Family History Family History: None, Reviewed & Not Pertinent, Other - ams Parental Family History Reviewed: No Children Family History Reviewed: No Sibling(s) Family History Reviewed.: No Medication/Allergy Home Medications: Apixaban [Eliquis 5 mg Tablet] 5 mg PO BID 11/24/19 Metoprolol Tartrate [Lopressor 25 mg Tablet] 12.5 mg PO Q12 11/24/19 Sertraline HCl 50 mg PO QHS 11/24/19 Allergies/Adverse Reactions: Penicillins Allergy (Verified 07/14/19 09:03) Sulfa (Sulfonamide Antibiotics) Allergy (Verified 11/23/19 18:47) Physical Exam Vital Signs: Temp Pulse Resp BP Pulse Ox 97.5 F 104 H 16 133/86 H 98 11/24/19 16:30 11/24/19 16:30 11/24/19 16:30 11/24/19 16:30 11/24/19 16:30 Intake & Output 11/23/19 11/24/19 11/25/19 06:59 06:59 06:59 Intake Total 100 Balance 100 Weight 75.7 kg General appearance: PRESENT: no acute distress, thin, other - Noncooperative Head exam: PRESENT: atraumatic, normocephalic Eye exam: PRESENT: EOMI Mouth exam: PRESENT: neck supple Teeth exam: PRESENT: poor dentation Neck exam: PRESENT: full ROM Respiratory exam: PRESENT: crackles, rhonchi Cardiovascular exam: PRESENT: irregular rhythm Vascular exam: PRESENT: normal capillary refill GI/Abdominal exam: PRESENT: soft, other - PEG tube site = drainage of serosanguineous thick fluid without odor Extremities exam: PRESENT: full ROM Musculoskeletal exam: PRESENT: full ROM Neurological exam: PRESENT: awake, other - Patient noncooperative due to her dementia Results Laboratory Results: 11/24/19 15:50 11/24/19 17:22 11/24/19 11/24/19 11/24/19 14:05 14:05 15:50 WBC Cancelled 7.1 RBC Cancelled 4.20 Hgb Cancelled 14.0 Hct Cancelled 39.2 MCV Cancelled 94 MCH Cancelled 33.3 MCHC Cancelled 35.6 RDW Cancelled 14.0 Plt Count Cancelled 170 Seg Neutrophils % Cancelled 72.0 Sodium 138.3 Potassium 4.5 Chloride 104 Carbon Dioxide 25 Anion Gap 9 BUN 16 Creatinine 0.53 Est GFR ( Amer) > 60 Glucose 111 H Calcium 9.3 Total Bilirubin 0.8 AST 31 Alkaline Phosphatase 114 Total Protein 7.6 Albumin 4.1 11/24/19 17:22 WBC RBC Hgb Hct MCV MCH MCHC RDW Plt Count Seg Neutrophils % Sodium 140.5 Potassium 4.0 Chloride 104 Carbon Dioxide 25 Anion Gap 12 BUN 13 Creatinine 0.58 Est GFR ( Amer) > 60 Glucose 112 H Calcium 9.0 Total Bilirubin AST Alkaline Phosphatase Total Protein Albumin Impressions: Tube Placement 11/24/19 12:00 IMPRESSION: Malpositioned G-tube. Assessment & Plan - Diagnosis (1) Cutaneous abscess of abdominal wall Is this a current diagnosis for this admission?: Yes (2) Atrial fibrillation Qualifiers: Atrial fibrillation type: unspecified Qualified Code(s): I48.91 - Unspecified atrial fibrillation Is this a current diagnosis for this admission?: Yes (3) Gastrostomy tube dysfunction Is this a current diagnosis for this admission?: Yes - Plan Summary Plan Summary: Assessment: 89-year-old female with atrial fibrillation on Eliquis Patient admitted for malposition of G-tube reinserted yesterday in the emergency room Physical exam reveals a hard mass surrounding the G-tube site together with drainage as per subcutaneous abscess Last dose of Eliquis given by the patient's son at about 1 AM on November 24, 2019 Blood work within normal limits The patient's son Colton Malhotra phone # has been consulted and he holds the patient's power of attorney general Plan: Incision and drainage of subcutaneous abdominal wall abscess at the PEG site tomorrow I have spoken with the patient's son: procedure, benefits, complications, alternatives, explained to the son, including bleeding and scarring, he understands all the above and decides to proceed; Consent was obtained via phone. Preop EKG N.p.o. IV fluids Start intravenous antibiotics clindamycin and doxycycline Obtain CT scan abdomen pelvis with IV contrast to better define the extent of the subcutaneous abscess
[2019-11-24] MEDS: LORAZEPAM INJ 2 MG/1 ML VIAL IV PRN (20:28)
--- NOTE | 2019-11-24 20:57 | EKG REPORT ---
SEVERITY:- ABNORMAL ECG - SINUS TACHYCARDIA FIRST DEGREE AV BLOCK LEFT ATRIAL ABNORMALITY PROBABLE INFERIOR INFARCT, OLD CONSIDER ANTERIOR INFARCT : Confirmed by: Paulo Land MD 24-Nov-2019 20:56:49
[2019-11-24] MEDS ORDERED: CEFAZOLIN SODIUM 2 GM in DEXTROSE 5%-WATER 100 ML IV SCH (21:00)
[2019-11-24] MEDS ORDERED: LORAZEPAM INJ 2 MG/1 ML VIAL IV SCH (21:00)
--- NOTE | 2019-11-24 21:21 | RADIOLOGY REPORT (SQ) ---
EXAM DESCRIPTION: CT ABDOMEN PELVIS WITH IV CONTRAST COMPLETED DATE/TME: 11/24/2019 00:00 CLINICAL HISTORY: 89 years Female r/o abdominal wall PEG site abscess COMPARISON: None. TECHNIQUE: Contiguous axial images obtained through the abdomen and pelvis following IV contrast. Reformatted images obtained. This exam was performed according to our department optimization program which includes automated exposure control, adjustment of the mA and/or kv according to patient size and/or use of iterative reconstruction technique. FINDINGS: Cardiac enlargement. Multiple hepatic cysts. The spleen and pancreas appear unremarkable. No adrenal masses. The kidneys appear unremarkable. No hydronephrosis. The gallbladder is visualized. No aneurysmal dilatation of the aorta. No bowel obstruction. The appendix is nonvisualized. No significant free fluid noted. Diverticulosis without evidence of diverticulitis. There is gas and contrast in the subcutaneous collection along the anterior abdominal wall which appears to communicate with the PEG tube tract. Findings may reflect a pocket of extravasated gas and contrast from G-tube injection versus abscess collection or combination of these. IMPRESSION: There is a gas and fluid collection in the soft tissues over the left anterior abdominal wall adjacent to the G-tube tract consistent with area of pocket of extravasated contrast versus abscess. Hepatic cysts Cardiac enlargement Diverticulosis without evidence of diverticulitis.
[2019-11-24] MEDS: DOXYCYCLINE HYCLATE 100 MG in DEXTROSE 5%-WATER 250 ML IV SCH (21:58)
[2019-11-25] MEDS: CLINDAMYCIN 600 MG/D5W RTU 600 MG/50 ML RTUPB IV SCH ×2 (02:26→13:19)
[2019-11-25 05:17] LABS: ABSOLUTE BASOPHILS # (AUTO) 0.1 10^3/uL (0.0-0.2); ABSOLUTE EOSINOPHILS # (AUTO) 0.1 10^3/uL (0.0-0.6); ABSOLUTE LYMPHOCYTES (AUTO) 2.2 10^3/uL (0.5-4.7); ABSOLUTE MONOCYTES (AUTO) 0.9 10^3/uL (0.1-1.4); ABSOLUTE NEUT (AUTO) 3.5 10^3/uL (1.7-8.2); BASOPHILS % (AUTO) 0.8 % (0-2); EOSINOPHILS % (AUTO) 0.9 % (0-6); HEMATOCRIT 37.6 % (36.0-47.0); LYMPHOCYTES % (AUTO) 33.1 % (13-45); MEAN CORPUSCULAR HEMOGLOBIN 32.2 pg (27.0-33.4); MEAN CORPUSCULAR HGB CONC 34.5 g/dL (32.0-36.0); MEAN CORPUSCULAR VOLUME 93 fl (80-97); PLATELET COUNT 172 10^3/uL (150-450); RED BLOOD COUNT 4.03 10^6/uL (3.72-5.28); RED CELL DISTRIBUTION WIDTH 14.4 % (11.5-14.0); SEGMENTED NEUTROPHILS % (AUTO) 52.2 % (42-78); TOTAL CELLS COUNTED % (AUTO) 100 %; WHITE BLOOD COUNT 6.7 10^3/uL (4.0-10.5)
[2019-11-25] MEDS ORDERED: FENTANYL CITRATE INJ/PF 100 MCG/2 ML AMPUL ONE (06:26)
[2019-11-25] MEDS ORDERED: PROPOFOL INJ 200 MG/20 ML VIAL IV ONE (06:27)
[2019-11-25] MEDS ORDERED: ONDANSETRON HCL INJ/PF 4 MG/2 ML SDV ONE (06:27)
[2019-11-25] MEDS ORDERED: SUGAMMADEX SODIUM 200 MG/2 ML SDV IV ONE (06:27)
[2019-11-25] MEDS ORDERED: MIDAZOLAM 2 MG/2 ML INJ ONE ×2 (06:27→10:29)
[2019-11-25] MEDS ORDERED: BUPIVACAINE HCL 0.5 % INJ/PF 30 ML SDV ONE (09:08)
[2019-11-25] MEDS ORDERED: LIDOCAINE 0.5%/EPINEPHRINE INJ 50 ML VIAL ONE (09:08)
[2019-11-25] MEDS ORDERED: FENTANYL CITRATE INJ/PF 100 MCG/2 ML AMPUL IV PRN (09:31)
[2019-11-25] MEDS ORDERED: MEPERIDINE HCL/PF INJ 25 MG/1 ML DISP.SYRIN IV PRN (09:31)
[2019-11-25] MEDS ORDERED: DIPHENHYDRAMINE HCL 50 MG/ML VIAL IV PRN (09:31)
[2019-11-25] MEDS ORDERED: PROMETHAZINE HCL INJ 25 MG/1 ML VIAL IV PRN ×2 (09:31)
[2019-11-25] MEDS ORDERED: ONDANSETRON HCL INJ/PF 4 MG/2 ML SDV IV PRN (09:37)
--- NOTE | 2019-11-25 10:16 | Operative Report ---
Operative Report DATE OF SURGERY: 11/25/19 PREOPERATIVE DIAGNOSIS: Upper anterior abdominal wall abscess;. S/p malposition gastrostomy tube POSTOPERATIVE DIAGNOSIS: Same OPERATION: Incision and drainage of anterior upper abdominal wall subcutaneous abscess SURGEON: URSULA HALLMAN ANESTHESIA: LMAC - In addition to 40 mL's of 50-50 half percent lidocaine and 0.25% Marcaine TISSUE REMOVED OR ALTERED: Purulent drainage COMPLICATIONS: None ESTIMATED BLOOD LOSS: Negligible INTRAOPERATIVE FINDINGS: Large subcutaneous abscess cavity located in the anterior upper abdominal wall with draining point at the old PEG site PROCEDURE: The procedure was done in the operating room, the patient was placed in a supine position, IV sedation provided by anesthesiologist, the area of the abscess was prepped and draped in usual fashion. This area was infiltrated with the lidocaine/Marcaine mixture. The proposed line of incision was outlined with a surgical marker, a skin incision which extended from the midline PEG site to the xiphoid process was then made with a #15 blade, and a moderate amount of pus was obtained. This was sent for aerobic anaerobic culture and Gram stain. The incision was then extended further total of 8 cm. After this, a finger was inserted inside the wound and the internal septations were disrupted bluntly and with Bovie so to make one single cavity. This cavity appeared to extend to the left of the midline without involvement of the underlying muscle. Following this, the abscess cavity was irrigated with jet lavage. Local bleeders were cauterized. The abscess cavity was packed with 3 inch packing Frankie roll soaked in Betadine, covered with dry 4 x 4's; ABDs, and tape were applied. The patient tolerated procedure well, and transferred to the recovery room in satisfactory conditions.
[2019-11-25] MEDS ORDERED: LORAZEPAM INJ 2 MG/1 ML VIAL ONE (10:30)
[2019-11-25] MEDS: LORAZEPAM INJ 2 MG/1 ML VIAL IV PRN ×2 (10:35→10:36)
--- NOTE | 2019-11-25 11:02 | CDI QUERY ---
<ELLIE SAENZ - Last Filed: 11/25/19 11:00> CDI Query CDI Review: Dear Provider, Please specify type A FIB if possible: PAROXYSMAL? PERSISTENT? PERMANENT? OTHER? Thanks, Ellie Saenz, CDI [phone] <DERICK RUIZ - Last Filed: 12/20/19 06:46> CDI Query CDI Review: Persistent Atrial fibrillation. Thank you Agree with Query: Yes - persistent a.fib
--- NOTE | 2019-11-25 11:49 | RADIOLOGY REPORT (SQ) ---
EXAM DESCRIPTION: KUB/ABDOMEN (SINGLE VIEW) IMAGES COMPLETED DATE/TIME: 11/25/2019 11:25 am REASON FOR STUDY: NGT PLACEMENT COMPARISON: 07/30/2019 NUMBER OF VIEWS: One view. TECHNIQUE: Supine radiographic image of the abdomen acquired. LIMITATIONS: None. FINDINGS: BOWEL GAS PATTERN: Normal bowel gas pattern. No dilated loops. Contrast noted throughout the left colon. CALCIFICATIONS: No suspicious calcifications. SOFT TISSUES: No gross mass or suggestion of organomegaly. HARDWARE: Nasoenteric tube tip overlies distal stomach/ proximal duodenum. BONES: No acute findings. Multilevel thoracolumbar spondylosis. OTHER: No other significant finding. IMPRESSION: Nasoenteric tube tip overlies distal stomach/proximal duodenum. TECHNICAL DOCUMENTATION: JOB ID: [id number] 2010 [employer]- All Rights Reserved Reading location - IP/workstation name: [email or web address]
[2019-11-25] MEDS ORDERED: PHARMACY COMMUNICATION ORDER MC NR (12:45)
[2019-11-25] MEDS ORDERED: LORAZEPAM INJ 2 MG/1 ML VIAL IV PRN ×2 (15:51)
[2019-11-25] MEDS ORDERED: DIPHENHYDRAMINE HCL 50 MG/ML VIAL IV ONE (16:00)
--- NOTE | 2019-11-25 16:02 | PDOC PROGRESS REPORT ---
Subjective Progress Note for:: 11/25/19 Subjective:: ANGIE MEDINA is a 89 year old female, H of Stroke, atrial fibrillation on eliquis, g tube placement for feeding who was admitted from the ED due to a dislodged G tube. Patient has had the G tube for about 2 years and has been in the ED multiple times due to dislodged G tube. She was brought to the ED yesterday due to a leaking feeding tube. It was replaced in the ED and was discharged back home. This morning her son noted that her feeding tube fell out of her stomach hence she was brought back to the ED. ED physician tried to replace her feeding tube again but was unable to hence surgery was consulted who recommended PEG tube placement. There was also note of serosanguinous discharge around the G tube area. Son denies any feve. D2 hospital stay 11/25/19. She was seen and examined at bedside. She was asleep and looks comfortable. She was taken to the OR earlier for possible PEG tube insertion however Dr. Kapoor noted an abscess around her G tube side so a PEG could not be placed, an NG tube was placed instead. Per Dr. Kapoor she would need 1-2 weeks of abx until a PEG tube placed can be safely placed. Reason For Visit: G TUBE MALFUNCTION Physical Exam Vital Signs: Temp Pulse Resp BP Pulse Ox 97.8 F 80 16 117/64 96 11/25/19 13:58 11/25/19 13:58 11/25/19 13:58 11/25/19 13:58 11/25/19 13:58 Intake & Output 11/24/19 11/25/19 11/26/19 06:59 06:59 06:59 Intake Total 1450 3380 Output Total 3016 Balance 1450 364 Weight 75.1 kg General appearance: PRESENT: no acute distress, cooperative Head exam: PRESENT: atraumatic Eye exam: PRESENT: EOMI, PERRLA Mouth exam: PRESENT: moist Neck exam: PRESENT: full ROM Respiratory exam: PRESENT: clear to auscultation nancy, symmetrical, unlabored. ABSENT: rales, wheezes Cardiovascular exam: PRESENT: RRR, +S1, +S2 Pulses: PRESENT: +2 pedal pulses bilateral GI/Abdominal exam: PRESENT: distended, normal bowel sounds, soft, other - surgical dressing over G tube side covered in clean dressing, dry, no discharge Extremities exam: PRESENT: other - non ambulatory. ABSENT: +2 edema Neurological exam: PRESENT: awake, aphasic Skin exam: PRESENT: normal color Results Laboratory Results: 11/25/19 05:06 11/24/19 17:22 11/24/19 11/24/19 11/25/19 15:50 17:22 05:06 WBC 7.1 6.7 RBC 4.20 4.03 Hgb 14.0 13.0 Hct 39.2 37.6 MCV 94 93 MCH 33.3 32.2 MCHC 35.6 34.5 RDW 14.0 14.4 H Plt Count 170 172 Seg Neutrophils % 72.0 52.2 Sodium 140.5 Potassium 4.0 Chloride 104 Carbon Dioxide 25 Anion Gap 12 BUN 13 Creatinine 0.58 Est GFR ( Amer) > 60 Glucose 112 H Calcium 9.0 Impressions: Abdomen/Pelvis CT 11/24/19 00:00 IMPRESSION: There is a gas and fluid collection in the soft tissues over the left anterior abdominal wall adjacent to the G-tube tract consistent with area of pocket of extravasated contrast versus abscess. Hepatic cysts Cardiac enlargement Diverticulosis without evidence of diverticulitis. Tube Placement 11/24/19 12:00 IMPRESSION: Malpositioned G-tube. KUB X-Ray 11/25/19 10:45 IMPRESSION: Nasoenteric tube tip overlies distal stomach/proximal duodenum. Assessment and Plan - Diagnosis (1) Cutaneous abscess of abdominal wall Is this a current diagnosis for this admission?: Yes Plan: - on G tube site - received doxy and clinda - will change to levaquin to cover both gram positive and gram negative bacteria (2) Gastrostomy tube dysfunction Is this a current diagnosis for this admission?: Yes Plan: - patient had a PEG placed 2 years prior after a stroke. Has been in the ED multiple times due to dislodged G tube - came in last night due to dislodged G tube was replaced but then was dislodged again this morning. unable to be replaced in the ED - minimal serosanguinous discharge - Dr. Kapoor attempted a PEG tube placement but found an abscess so a PEG tube was not placed. NG tube placed in the interim for feeding - Dietary consult for enteral feeding - accucheck q6 - clinda for abx. Patient allergic to penicillin (3) History of stroke Is this a current diagnosis for this admission?: Yes Plan: - 2 years ago. G tube placed then for feeding - on eliquis - not on aspirin or statin (4) Atrial fibrillation Qualifiers: Atrial fibrillation type: unspecified Qualified Code(s): I48.91 - Unspecified atrial fibrillation Is this a current diagnosis for this admission?: Yes Plan: - hx of a.fib. patient had a stroke 2017 - NPO due to dislodged G tube - lovenox 40 mg daily - metoprolol for rate control switched to IV (5) Dementia Qualifiers: Dementia type: vascular dementia Dementia behavioral disturbance: without behavioral disturbance Qualified Code(s): F01.50 - Vascular dementia without behavioral disturbance Is this a current diagnosis for this admission?: Yes - Time Time Spent with patient: 25-34 minutes Anticipated Discharge Disposition: Home, Self Care Anticipated Discharge Timeframe: to be determined
[2019-11-25] MEDS: DOXYCYCLINE HYCLATE 100 MG in DEXTROSE 5%-WATER 250 ML IV SCH (17:25)
--- NOTE | 2019-11-25 17:29 | RADIOLOGY REPORT (SQ) ---
EXAM DESCRIPTION: PICC LINE REPLACEMENT IMAGES COMPLETED DATE/TIME: 11/25/2019 5:10 pm REASON FOR STUDY: Need of TPN COMPARISON: None. FLUOROSCOPY TIME: 31 seconds of fluoroscopy was used. 1 images saved to PACS. TECHNIQUE: Fluoroscopic and ultrasound guided PICC placement. LIMITATIONS: None. PROCEDURE: After written consent and assessment were obtained, the patient was brought into the fluo roscopy room and placed supine on the table. Ultrasound evaluation of potential access sites were per formed. After successfully identifying a patent left basilic vein, the left arm was prepped and drape d in a sterile fashion along with the ultrasound probe. The entry site was anesthetized with 1% lidoc myah. A 21 gauge 7 cm needle was advanced through the skin and into the basilic vein under live ultra sound guidance. An ultrasound image was saved to PACS confirming access site. A .018 guide wire was then inserted through the needle and into the venous system. The needle was then removed and an 11 b lade scalpel was used to make a 1cm skin incision. A 5 fr peel-away sheath was advanced over the wir e and into the venous system. A measurement was then made using the existing wire and live fluoroscop ic guidance. The wire was then removed and trimmed. The PICC was advanced through the peel-away sheat h and into the venous system. The peel-away sheath was removed and the catheter was adhered to the pa tients arm with a stat lock. The catheter was then aspirated and flushed and a sterile bandage was pl aced over the access site. A fluoroscopic spot image was saved to PACS confirming the catheter tip w ithin the superior vena cava. IMPRESSION: SUCCESSFUL PLACEMENT OF A 5 FR DUAL LUMEN 36 CM PICC IN THE LEFT BASILIC VEIN. COMMENT: Patient medication list reviewed: Yes- Quality ID# 130:Eligible professional attests to doc umenting in the medical record they obtained, updated, or reviewed the patient's current medications. . Quality ID 145: Final reports for procedures using fluoroscopy that document radiation exposure arnulfo joseph, or exposure time and number of fluorographic images (if radiation exposure indices are not avail able) Quality ID #76: The patient was prepped and draped using maximum sterile barrier technique including cap, mask, sterile gown, sterile gloves, a large sterile sheet, hand hygiene, and 2% Chlorhexidine fo r cutaneous antisepsis. When ultrasound is used, sterile ultrasound techniques are followed requiring sterile gel and sterile probes. TECHNICAL DOCUMENTATION: JOB ID: [id number] 2010 [employer]- All Rights Reserved rev Reading location - IP/workstation name: [email or web address]
[2019-11-25] MEDS: LEVOFLOXACIN 750 MG/D5W RTU 750 MG/150 ML RTUPB IV SCH (18:10)
[2019-11-25 19:02] LABS: ANION GAP 8 (5-19); BLOOD UREA NITROGEN 10 mg/dL (7-20); CALCIUM 8.7 mg/dL (8.4-10.2); CARBON DIOXIDE 25 mmol/L (22-30); CHLORIDE 105 mmol/L (98-107); GLUCOSE 124 mg/dL (75-110); POTASSIUM 3.8 mmol/L (3.6-5.0)
[2019-11-26 05:53] LABS: ABSOLUTE EOSINOPHILS # (AUTO) 0.1 10^3/uL (0.0-0.6); ABSOLUTE LYMPHOCYTES (AUTO) 1.9 10^3/uL (0.5-4.7); ABSOLUTE MONOCYTES (AUTO) 0.8 10^3/uL (0.1-1.4); ABSOLUTE NEUT (AUTO) 4.3 10^3/uL (1.7-8.2); BASOPHILS % (AUTO) 0.3 % (0-2); EOSINOPHILS % (AUTO) 0.8 % (0-6); HEMATOCRIT 35.3 % (36.0-47.0); HEMOGLOBIN 12.2 g/dL (12.0-15.5); LYMPHOCYTES % (AUTO) 27.3 % (13-45); MEAN CORPUSCULAR HEMOGLOBIN 32.4 pg (27.0-33.4); MEAN CORPUSCULAR HGB CONC 34.5 g/dL (32.0-36.0); MEAN CORPUSCULAR VOLUME 94 fl (80-97); MONOCYTES % (AUTO) 11.7 % (3-13); PLATELET COUNT 162 10^3/uL (150-450); RED BLOOD COUNT 3.75 10^6/uL (3.72-5.28); RED CELL DISTRIBUTION WIDTH 13.8 % (11.5-14.0); SEGMENTED NEUTROPHILS % (AUTO) 59.9 % (42-78); TOTAL CELLS COUNTED % (AUTO) 100 %; WHITE BLOOD COUNT 7.1 10^3/uL (4.0-10.5)
[2019-11-26 06:15] LABS: ANION GAP 8 (5-19); BLOOD UREA NITROGEN 9 mg/dL (7-20); CALCIUM 8.6 mg/dL (8.4-10.2); CARBON DIOXIDE 25 mmol/L (22-30); CHLORIDE 105 mmol/L (98-107); GLUCOSE 112 mg/dL (75-110); POTASSIUM 3.9 mmol/L (3.6-5.0)
--- NOTE | 2019-11-26 08:30 | PDOC PROGRESS REPORT ---
Subjective Progress Note for:: 11/26/19 Subjective:: pt unable to communicate due to dementia Reason For Visit: G TUBE MALFUNCTION Physical Exam Vital Signs: Temp Pulse Resp BP Pulse Ox 99.2 F 105 H 20 125/82 97 11/26/19 07:48 11/26/19 07:41 11/26/19 07:41 11/26/19 07:41 11/26/19 07:41 Intake & Output 11/25/19 11/26/19 11/27/19 06:59 06:59 06:59 Intake Total 1450 3530 Output Total 3016 Balance 1450 514 Weight 75.1 kg 75.1 kg General appearance: PRESENT: no acute distress Head exam: PRESENT: normocephalic Eye exam: PRESENT: EOMI Ear exam: PRESENT: normal external ear exam Mouth exam: PRESENT: moist Teeth exam: PRESENT: poor dentation Neck exam: PRESENT: full ROM Respiratory exam: PRESENT: rhonchi Cardiovascular exam: PRESENT: RRR Pulses: PRESENT: normal femoral pulses Vascular exam: PRESENT: normal capillary refill Breast: PRESENT: Normal GI/Abdominal exam: PRESENT: other - abd wall abscess, clean base, min cellulitis Rectal exam: PRESENT: deferred Extremities exam: PRESENT: full ROM Musculoskeletal exam: PRESENT: full ROM Neurological exam: PRESENT: other Psychiatric exam: PRESENT: agitated Focused psych exam: PRESENT: restlessness Skin exam: PRESENT: dry Results Laboratory Results: 11/26/19 05:48 11/26/19 05:48 11/25/19 11/26/19 11/26/19 18:30 05:48 05:48 WBC 7.1 RBC 3.75 Hgb 12.2 Hct 35.3 L MCV 94 MCH 32.4 MCHC 34.5 RDW 13.8 Plt Count 162 Seg Neutrophils % 59.9 Sodium 137.7 137.7 Potassium 3.8 3.9 Chloride 105 105 Carbon Dioxide 25 25 Anion Gap 8 8 BUN 10 9 Creatinine 0.56 0.63 Est GFR ( Amer) > 60 > 60 Glucose 124 H 112 H Calcium 8.7 8.6 11/24/19 14:40 Blood Blood Culture (PCR) - Final Staphylococcus Species Impressions: Abdomen/Pelvis CT 11/24/19 00:00 IMPRESSION: There is a gas and fluid collection in the soft tissues over the left anterior abdominal wall adjacent to the G-tube tract consistent with area of pocket of extravasated contrast versus abscess. Hepatic cysts Cardiac enlargement Diverticulosis without evidence of diverticulitis. Tube Placement 11/24/19 12:00 IMPRESSION: Malpositioned G-tube. PICC Line Exchange 11/25/19 00:00 IMPRESSION: SUCCESSFUL PLACEMENT OF A 5 FR DUAL LUMEN 36 CM PICC IN THE LEFT BASILIC VEIN. KUB X-Ray 11/25/19 10:45 IMPRESSION: Nasoenteric tube tip overlies distal stomach/proximal duodenum. Assessment & Plan - Time Anticipated Discharge Disposition: unk Anticipated Discharge Timeframe: unk - Plan Summary Plan Summary: abdominal wall abscess secondary to displaced g-tube, now removed pt with sever dementia pt not a good candidate for repeat g-tube suggest conversation with family about future care surgery will cont to follow wound.
[2019-11-26] MEDS: NORMAL SALINE 10 ML SDV (SCHEDULED) IV SCH ×2 (11:12→21:08)
[2019-11-26] MEDS: MORPHINE SULFATE 10 MG/ML INJ IV PRN (11:24)
[2019-11-26] MEDS ORDERED: IPRATROPIUM/ALBUTEROL 0.5-2.5 MG/3 ML AMPUL NEB PRN (15:13)
--- NOTE | 2019-11-26 17:48 | PDOC PROGRESS REPORT ---
Subjective Progress Note for:: 11/26/19 Subjective:: ANGIE MEDINA is a 89 year old female, PMH of Stroke, atrial fibrillation on eliquis, g tube placement for feeding who was admitted from the ED due to a dislodged G tube. Patient has had the G tube for about 2 years and has been in the ED multiple times due to dislodged G tube. She was brought to the ED yesterday due to a leaking feeding tube. It was replaced in the ED and was discharged back home. This morning her son noted that her feeding tube fell out of her stomach hence she was brought back to the ED. ED physician tried to replace her feeding tube again but was unable to hence surgery was consulted who recommended PEG tube placement. There was also note of serosanguinous discharge around the G tube area. Son denies any fever. D2 hospital stay 11/25/19. She was seen and examined at bedside. She was asleep and looks comfortable. She was taken to the OR earlier for possible PEG tube insertion however Dr. Kapoor noted an abscess around her G tube side so a PEG could not be placed, an NG tube was placed instead. Per Dr. Kapoor she would need 1-2 weeks of abx until a PEG tube placed can be safely placed. D3 hospital stay 11/26/19. She was seen and examined at bedside. She awake and alert but has dementia and mays snot speak much turkish at baseline. She pulled out her feeding tube yesterday and Dr. Kapoor ordered a PICC line placed yesterday for TPN. Per surgery notes she is a poor candidate for G tube placement. TPN was started today. I was unable to speak to her son today about her feeding tube situation. Will discuss tomorrow. She is on D2 of Levaquin for abdominal wall cellulitis. Reason For Visit: G TUBE MALFUNCTION Physical Exam Vital Signs: Temp Pulse Resp BP Pulse Ox 99.5 F 99 20 135/67 H 97 11/26/19 15:56 11/26/19 15:56 11/26/19 15:56 11/26/19 15:56 11/26/19 15:56 Intake & Output 11/25/19 11/26/19 11/27/19 06:59 06:59 06:59 Intake Total 1450 3530 Output Total 3016 Balance 1450 514 Weight 75.1 kg 75.1 kg 75.1 kg General appearance: PRESENT: no acute distress, cooperative Head exam: PRESENT: atraumatic, normocephalic Eye exam: PRESENT: EOMI, PERRLA Mouth exam: PRESENT: moist Neck exam: PRESENT: full ROM Respiratory exam: PRESENT: clear to auscultation nancy, symmetrical, unlabored. ABSENT: rales, wheezes Cardiovascular exam: PRESENT: irregular rhythm, +S1, +S2 Pulses: PRESENT: +2 pedal pulses bilateral Vascular exam: PRESENT: normal capillary refill GI/Abdominal exam: PRESENT: normal bowel sounds, soft, other - G tube site co nilda in dressing, clean dry, no signs of infection. ABSENT: rebound, tenderness Extremities exam: PRESENT: other - patient is bedbound Neurological exam: PRESENT: alert, awake, other - has baseline dementia, minimally verbal Skin exam: PRESENT: normal color Results Laboratory Results: 11/26/19 05:48 11/26/19 05:48 11/25/19 11/26/19 11/26/19 18:30 05:48 05:48 WBC 7.1 RBC 3.75 Hgb 12.2 Hct 35.3 L MCV 94 MCH 32.4 MCHC 34.5 RDW 13.8 Plt Count 162 Seg Neutrophils % 59.9 Sodium 137.7 137.7 Potassium 3.8 3.9 Chloride 105 105 Carbon Dioxide 25 25 Anion Gap 8 8 BUN 10 9 Creatinine 0.56 0.63 Est GFR ( Amer) > 60 > 60 Glucose 124 H 112 H Calcium 8.7 8.6 11/24/19 14:40 Blood Blood Culture (PCR) - Final Staphylococcus Species Impressions: Abdomen/Pelvis CT 11/24/19 00:00 IMPRESSION: There is a gas and fluid collection in the soft tissues over the left anterior abdominal wall adjacent to the G-tube tract consistent with area of pocket of extravasated contrast versus abscess. Hepatic cysts Cardiac enlargement Diverticulosis without evidence of diverticulitis. Tube Placement 11/24/19 12:00 IMPRESSION: Malpositioned G-tube. PICC Line Exchange 11/25/19 00:00 IMPRESSION: SUCCESSFUL PLACEMENT OF A 5 FR DUAL LUMEN 36 CM PICC IN THE LEFT BASILIC VEIN. KUB X-Ray 11/25/19 10:45 IMPRESSION: Nasoenteric tube tip overlies distal stomach/proximal duodenum. Assessment and Plan - Diagnosis (1) Cutaneous abscess of abdominal wall Is this a current diagnosis for this admission?: Yes Plan: - on G tube site - received doxy and clinda - on levaquin. she is allergic to penicillin (2) Gastrostomy tube dysfunction Is this a current diagnosis for this admission?: Yes Plan: - patient had a PEG placed 2 years prior after a stroke. Has been in the ED multiple times due to dislodged G tube - came in last night due to dislodged G tube was replaced but then was dislodged again this morning. unable to be replaced in the ED - minimal serosanguinous discharge - Dr. Kapoor attempted a PEG tube placement but found an abscess so a PEG tube was not placed. NG tube placed in the interim was removed by patient. Dr Kapoor unable to place a new one, PICC line ordered for TPN nutrition - per surgery notes, she is a poor candidate for G tube replacement. Will discuss this with the son. - accucheck q6 - (3) History of stroke Is this a current diagnosis for this admission?: Yes Plan: - 2 years ago. G tube placed then for feeding - will ask speech therapist to do a formal swallow eval to see if she can be fed by mouth. - not on aspirin or statin (4) Atrial fibrillation Qualifiers: Atrial fibrillation type: unspecified Qualified Code(s): I48.91 - Unspecified atrial fibrillation Is this a current diagnosis for this admission?: Yes Plan: - hx of arben. patient had a stroke 2018 - NPO due to dislodged G tube - lovenox therapeutic - metoprolol for rate control switched to IV (5) Dementia Qualifiers: Dementia type: vascular dementia Dementia behavioral disturbance: without behavioral disturbance Qualified Code(s): F01.50 - Vascular dementia without behavioral disturbance Is this a current diagnosis for this admission?: Yes - Time Time Spent with patient: 25-34 minutes Anticipated Discharge Disposition: Home, Self Care Anticipated Discharge Timeframe: to be determined
[2019-11-26] MEDS: METOPROLOL TARTRATE PF/INJ 5 MG/5 ML SDV IV SCH ×2 (18:07→23:43)
[2019-11-26] MEDS: DEXTROSE 5%-LACTATED RINGERS 1,000 ML IV PRN (18:07)
[2019-11-26] MEDS: ENOXAPARIN SODIUM INJ 80 MG/0.8 ML DISP.SYRIN SUBCUT SCH (21:04)
[2019-11-27] MEDS: MORPHINE SULFATE 10 MG/ML INJ IV PRN ×2 (00:01→21:36)
[2019-11-27] MEDS: METOPROLOL TARTRATE PF/INJ 5 MG/5 ML SDV IV SCH ×3 (05:38→18:23)
[2019-11-27 06:03] LABS: INTERNATIONAL RATION (INR) 1.13; PROTHROMBIN TIME 14.7 SEC (11.4-15.4)
[2019-11-27] MEDS ORDERED: SCOPOLAMINE HYDROBROMIDE 1.5 MG PATCH.TD72 ONE (06:09)
[2019-11-27] MEDS: SCOPOLAMINE HYDROBROMIDE 1.5 MG PATCH.TD72 TD SCH (06:18)
[2019-11-27 06:22] LABS: ALBUMIN 3.1 g/dL (3.5-5.0); ALKALINE PHOSPHATASE 76 U/L (38-126); ANION GAP 9 (5-19); ASPARTATE AMINO TRANSFERASE 28 U/L (14-36); BILIRUBIN,DIRECT 0.2 mg/dL (0.0-0.4); BILIRUBIN,TOTAL 1.1 mg/dL (0.2-1.3); BLOOD UREA NITROGEN 6 mg/dL (7-20); CALCIUM 8.4 mg/dL (8.4-10.2); CARBON DIOXIDE 25 mmol/L (22-30); CHLORIDE 105 mmol/L (98-107); GLUCOSE 121 mg/dL (75-110); PHOSPHORUS 2.9 mg/dL (2.5-4.5); POTASSIUM 3.6 mmol/L (3.6-5.0); TOTAL PROTEIN 6.1 g/dL (6.3-8.2); TRIGLYCERIDES 98 mg/dL (<150)
[2019-11-27] MEDS: DEXTROSE 5%-LACTATED RINGERS 1,000 ML IV PRN (06:45)
[2019-11-27 06:58] LABS: ABSOLUTE EOSINOPHILS # (AUTO) 0.1 10^3/uL (0.0-0.6); ABSOLUTE LYMPHOCYTES (AUTO) 2.1 10^3/uL (0.5-4.7); ABSOLUTE MONOCYTES (AUTO) 0.7 10^3/uL (0.1-1.4); ABSOLUTE NEUT (AUTO) 3.7 10^3/uL (1.7-8.2); BASOPHILS % (AUTO) 0.5 % (0-2); EOSINOPHILS % (AUTO) 1.8 % (0-6); HEMATOCRIT 32.2 % (36.0-47.0); HEMOGLOBIN 11.2 g/dL (12.0-15.5); LYMPHOCYTES % (AUTO) 31.4 % (13-45); MEAN CORPUSCULAR HEMOGLOBIN 32.9 pg (27.0-33.4); MEAN CORPUSCULAR HGB CONC 34.8 g/dL (32.0-36.0); MEAN CORPUSCULAR VOLUME 95 fl (80-97); MONOCYTES % (AUTO) 10.8 % (3-13); PLATELET COUNT 145 10^3/uL (150-450); RED CELL DISTRIBUTION WIDTH 13.7 % (11.5-14.0); SEGMENTED NEUTROPHILS % (AUTO) 55.5 % (42-78); TOTAL CELLS COUNTED % (AUTO) 100 %; WHITE BLOOD COUNT 6.7 10^3/uL (4.0-10.5)
--- NOTE | 2019-11-27 08:51 | PDOC PROGRESS REPORT ---
Subjective Progress Note for:: 11/27/19 Subjective:: patient awake but unable to communicate due to dementia Reason For Visit: G TUBE MALFUNCTION Physical Exam Vital Signs: Temp Pulse Resp BP Pulse Ox 99.9 F 109 H 18 109/86 H 98 11/27/19 01:15 11/27/19 05:00 11/27/19 05:00 11/27/19 05:00 11/27/19 05:00 Intake & Output 11/26/19 11/27/19 11/28/19 06:59 06:59 06:59 Intake Total 3530 1999 Output Total 3016 Balance 514 1999 Weight 75.1 kg 75.6 kg General appearance: PRESENT: no acute distress, well-developed GI/Abdominal exam: PRESENT: other - upper midline wound granulating, no drainage, no odor Results Laboratory Results: 11/27/19 05:35 11/27/19 05:35 11/27/19 11/27/19 05:35 05:35 WBC 6.7 RBC 3.40 L Hgb 11.2 L Hct 32.2 L MCV 95 MCH 32.9 MCHC 34.8 RDW 13.7 Plt Count 145 L Seg Neutrophils % 55.5 Sodium 138.6 Potassium 3.6 Chloride 105 Carbon Dioxide 25 Anion Gap 9 BUN 6 L Creatinine 0.54 Est GFR ( Amer) > 60 Glucose 121 H Calcium 8.4 Phosphorus 2.9 Magnesium 1.7 Total Bilirubin 1.1 AST 28 Alkaline Phosphatase 76 Total Protein 6.1 L Albumin 3.1 L Prealbumin 11.0 L Triglycerides 98 11/24/19 14:40 Blood Blood Culture (PCR) - Final Staphylococcus Species Impressions: Abdomen/Pelvis CT 11/24/19 00:00 IMPRESSION: There is a gas and fluid collection in the soft tissues over the left anterior abdominal wall adjacent to the G-tube tract consistent with area of pocket of extravasated contrast versus abscess. Hepatic cysts Cardiac enlargement Diverticulosis without evidence of diverticulitis. Tube Placement 11/24/19 12:00 IMPRESSION: Malpositioned G-tube. PICC Line Exchange 11/25/19 00:00 IMPRESSION: SUCCESSFUL PLACEMENT OF A 5 FR DUAL LUMEN 36 CM PICC IN THE LEFT BASILIC VEIN. KUB X-Ray 11/25/19 10:45 IMPRESSION: Nasoenteric tube tip overlies distal stomach/proximal duodenum. Assessment & Plan - Diagnosis (1) Cutaneous abscess of abdominal wall Is this a current diagnosis for this admission?: Yes (2) Atrial fibrillation Qualifiers: Atrial fibrillation type: unspecified Qualified Code(s): I48.91 - Unspecified atrial fibrillation Is this a current diagnosis for this admission?: Yes (3) Gastrostomy tube dysfunction Is this a current diagnosis for this admission?: Yes - Time Anticipated Discharge Disposition: Home with Home Health Anticipated Discharge Timeframe: as per PCP - Plan Summary Plan Summary: A/ POD#2 after I&D of abdominal wall abscess Abdominal wound well granulating Patient is completely missing gag reflex or swallowing Patient severely demented There is concern by the Surgical service in regard to the benefit of a repeated PEG placement as this will not improve her expectancy of life and / or quality of life P/ I have discussed the case with the Hospitalist Dr. Carver: ethics committee will have to be involved to the discuss therapeutic options with the patient's son who holds the POA. A new PEG will not be inserted until the abdominal abscess wound has completely healed (its location is where the new PEG will be located): it might take up to 2 weeks If a new PEG insertion is planned, alternative methods of nutrition will have to be used
[2019-11-27] MEDS: LEVOFLOXACIN 750 MG/D5W RTU 750 MG/150 ML RTUPB IV SCH (11:01)
[2019-11-27] MEDS: NORMAL SALINE 10 ML SDV (SCHEDULED) IV SCH ×2 (11:03→21:22)
[2019-11-27] MEDS: ENOXAPARIN SODIUM INJ 80 MG/0.8 ML DISP.SYRIN SUBCUT SCH ×2 (11:13→21:23)
--- NOTE | 2019-11-27 11:49 | RADIOLOGY REPORT (SQ) ---
EXAM DESCRIPTION: CHEST SINGLE VIEW IMAGES COMPLETED DATE/TIME: 11/27/2019 11:34 am REASON FOR STUDY: increased secretions COMPARISON: 07/14/2019 FINDINGS: One-view chest AP upright portable. Low lung volumes. Cardiomegaly, as before. Chronic left basilar opacity without suggestion of new i nfiltrate or definite congestive failure. Left PICC line in place. TECHNICAL DOCUMENTATION: JOB ID: [id number] Reading location - IP/workstation name: [email or web address]
[2019-11-27] MEDS ORDERED: FUROSEMIDE INJ/PF 20 MG/2 ML SDV IV ONE (11:54)
[2019-11-27] MEDS ORDERED: GLUCAGON,HUMAN RECOMB 1 MG INJ IM PRN (12:30)
[2019-11-27] MEDS ORDERED: DEXTROSE 50%-WATER SYRINGE 12.5 GM/25 ML DOSE IV PRN (12:30)
[2019-11-27] MEDS ORDERED: DEXTROSE 50%-WATER SYRINGE 25 GM/50 ML DOSE IV PRN (12:30)
[2019-11-27] MEDS ORDERED: DEXTROSE 40% GEL 15 GM TUBE X 2 PO PRN (12:30)
[2019-11-27] MEDS ORDERED: DEXTROSE 40% GEL 15 GM TUBE PO PRN (12:30)
[2019-11-27] MEDS: INSULIN REG, HUMAN 100 UNIT/ML 3 ML VIAL (PYX) SUBCUT SCH ×2 (13:00→18:22)
[2019-11-27] MEDS: AMINO ACIDS 5 %/DEXTROSE 20 % 1,000 ML IV PRN (16:14)
[2019-11-27] MEDS ORDERED: DEXTROSE 10%-WATER 1,000 ML IV PRN (18:00)
--- NOTE | 2019-11-27 20:48 | ADVANCED CARE ---
- Diagnosis (1) Cutaneous abscess of abdominal wall Diagnosis Current: Yes (2) Gastrostomy tube dysfunction Diagnosis Current: Yes (3) History of stroke Diagnosis Current: Yes (4) Atrial fibrillation Diagnosis Current: Yes (5) Dementia Diagnosis Current: Yes Attendance: Son and POOlivia Segura. Resuscitation Status: Full Code Discussion: I was able to have a meeting with the patient's son and power of sand carrier Colton. Colton is apparently the patient's only son and is just the 2 of them in the family. Home health nurse comes in and help with the patient twice a day. I discussed with Colton her current medical state and surgeons concern about putting a PEG tube on her and possible complications associated with it. We also talked about the frequent ED visits due to G tube dislodgment and he attributes these malfunctions to the ED doctors not putting it the correct way or using the wrong size. I have discussed with him that putting a PEG tube on a bed bound patient with dementia has not been shown to prolong life or lead to a good quality of life. He said he is doubtful about this. He also said multiple times that he wants a "permanent PEG tube placed". He is willing to wait until the infection has resolved. when I ask him what he thinks he would do if the surgeons were unable to replace the tube, he stated that "we would cross the bridge when we get there". Care Planning Goals: >16 min < 30 min. Document(s) Completed: none
--- NOTE | 2019-11-27 21:00 | PDOC PROGRESS REPORT ---
Subjective Progress Note for:: 11/27/19 Subjective:: THERESE KEYES is a 89 year old female, PMH of Stroke, atrial fibrillation on eliquis, g tube placement for feeding who was admitted from the ED due to a dislodged G tube. Patient has had the G tube for about 2 years and has been in the ED multiple times due to dislodged G tube. She was brought to the ED yesterday due to a leaking feeding tube. It was replaced in the ED and was discharged back home. This morning her son noted that her feeding tube fell out of her stomach hence she was brought back to the ED. ED physician tried to replace her feeding tube again but was unable to hence surgery was consulted who recommended PEG tube placement. There was also note of serosanguinous discharge around the G tube area. Son denies any fever. D2 hospital stay 11/25/19. She was seen and examined at bedside. She was asleep and looks comfortable. She was taken to the OR earlier for possible PEG tube insertion however Dr. Kapoor noted an abscess around her G tube side so a PEG could not be placed, an NG tube was placed instead. Per Dr. Kapoor she would need 1-2 weeks of abx until a PEG tube placed can be safely placed. D3 hospital stay 11/26/19. She was seen and examined at bedside. She awake and alert but has dementia and does not speak much romanian at baseline. She pulled out her feeding tube yesterday and Dr. Kapoor ordered a PICC line placed yesterday for TPN. Per surgery notes she is a poor candidate for G tube placement. TPN was ordered. I was unable to speak to her son today about her feeding tube situation. Will discuss tomorrow. She is on D2 of Levaquin for abdominal wall cellulitis. D4 hospital stay 11/27/19. she was seen and examined at bedside. She is awake and moaning constantly, mays snot answer questions. Noted to have increased secret ions. repeat CXR no pneumonia or signs of CHF. IV fluids stopped and she was given [address] Kapoor expressed concern about putting a PEG tube on an 89 year old demented patient which I totally agree with. However her son insist that he wants a PEG tube for his mother. Ethics consult might be appropriate. She is on levaquin for abdominal wall cellulitis. TPN to start today. Please refer to ACP note. Reason For Visit: G TUBE MALFUNCTION Physical Exam Vital Signs: Temp Pulse Resp BP Pulse Ox 99.2 F 97 20 132/87 H 90 L 11/27/19 15:18 11/27/19 15:18 11/27/19 15:18 11/27/19 15:18 11/27/19 15:18 Intake & Output 11/26/19 11/27/19 11/28/19 06:59 06:59 06:59 Intake Total 3530 1999 150 Output Total 3016 Balance 514 1999 150 Weight 75.1 kg 75.6 kg General appearance: PRESENT: no acute distress, hard of hearing Head exam: PRESENT: atraumatic, normocephalic Eye exam: PRESENT: EOMI, PERRLA Ear exam: PRESENT: normal external ear exam Mouth exam: PRESENT: moist Neck exam: PRESENT: full ROM Respiratory exam: PRESENT: crackles, symmetrical, unlabored Cardiovascular exam: PRESENT: RRR, +S1, +S2 Pulses: PRESENT: normal radial pulses GI/Abdominal exam: PRESENT: normal bowel sounds, soft. ABSENT: rebound, tenderness Extremities exam: ABSENT: +2 edema Musculoskeletal exam: PRESENT: other - Bedbound Neurological exam: PRESENT: alert, awake, aphasic - minimally verbal Psychiatric exam: PRESENT: agitated, normal mood Skin exam: PRESENT: normal color Results Laboratory Results: 11/27/19 05:35 11/27/19 05:35 11/27/19 11/27/19 05:35 05:35 WBC 6.7 RBC 3.40 L Hgb 11.2 L Hct 32.2 L MCV 95 MCH 32.9 MCHC 34.8 RDW 13.7 Plt Count 145 L Seg Neutrophils % 55.5 Sodium 138.6 Potassium 3.6 Chloride 105 Carbon Dioxide 25 Anion Gap 9 BUN 6 L Creatinine 0.54 Est GFR ( Amer) > 60 Glucose 121 H Calcium 8.4 Phosphorus 2.9 Magnesium 1.7 Total Bilirubin 1.1 AST 28 Alkaline Phosphatase 76 Total Protein 6.1 L Albumin 3.1 L Prealbumin 11.0 L Triglycerides 98 11/25/19 09:38 Abdomen - Abscess Gram Stain - Final 11/25/19 09:38 Abdomen - Abscess Wound Culture - Final Escherichia Coli Klebsiella Pneumoniae No Anaerobic Organisms 11/25/19 09:37 Abdomen - Abscess Gram Stain - Final 11/25/19 09:37 Abdomen - Abscess Wound Culture - Final Klebsiella Pneumoniae Escherichia Coli No Anaerobic Organisms 11/24/19 14:40 Blood Blood Culture (PCR) - Final Staphylococcus Species 11/24/19 14:40 Blood Blood Culture - Final Staphylococcus Epidermidis Impressions: Abdomen/Pelvis CT 11/24/19 00:00 IMPRESSION: There is a gas and fluid collection in the soft tissues over the left anterior abdominal wall adjacent to the G-tube tract consistent with area of pocket of extravasated contrast versus abscess. Hepatic cysts Cardiac enlargement Diverticulosis without evidence of diverticulitis. Tube Placement 11/24/19 12:00 IMPRESSION: Malpositioned G-tube. PICC Line Exchange 11/25/19 00:00 IMPRESSION: SUCCESSFUL PLACEMENT OF A 5 FR DUAL LUMEN 36 CM PICC IN THE LEFT BASILIC VEIN. KUB X-Ray 11/25/19 10:45 IMPRESSION: Nasoenteric tube tip overlies distal stomach/proximal duodenum. Assessment and Plan - Diagnosis (1) Cutaneous abscess of abdominal wall Is this a current diagnosis for this admission?: Yes Plan: - on G tube site - culture growing E.coli, klebsiella sensitive to levaquin - on levaquin. she is allergic to penicillin (2) Gastrostomy tube dysfunction Is this a current diagnosis for this admission?: Yes Plan: - patient had a PEG placed 2 years prior after a stroke. Has been in the ED multiple times due to dislodged G tube - came in last night due to dislodged G tube was replaced but then was dislodged again this morning. unable to be replaced in the ED - minimal serosanguinous discharge - Dr. Kapoor attempted a PEG tube placement but found an abscess so a PEG tube was not placed. NG tube placed in the interim was removed by patient. Dr Kapoor unable to place a new one, PICC line ordered for TPN nutrition - per surgery notes, she is a poor candidate for G tube replacement. I have discussed with the Son and POA. please refer to ACP note. - TPN to start today - (3) History of stroke Is this a current diagnosis for this admission?: Yes Plan: - 2 years ago. G tube placed then for feeding - will ask speech therapist to do a formal swallow eval to see if she can be fed by mouth. - not on aspirin or statin (4) Atrial fibrillation Qualifiers: Atrial fibrillation type: unspecified Qualified Code(s): I48.91 - Unspecified atrial fibrillation Is this a current diagnosis for this admission?: Yes Plan: - hx of a.fib. patient had a stroke 2018 - NPO due to dislodged G tube - lovenox therapeutic - metoprolol for rate control switched to IV (5) Dementia Qualifiers: Dementia type: vascular dementia Dementia behavioral disturbance: without behavioral disturbance Qualified Code(s): F01.50 - Vascular dementia without behavioral disturbance Is this a current diagnosis for this admission?: Yes Plan: - bedboudn with dementia - - Plan Summary Summary: Therese Keyes 89/f with dementia, bedbound, hx of stroke admitted for G tube dislodgement and abdominal wall cellulitis. He is currently being treated for abdominal wall cellulitis with Levaquin. Surgery expressed concern about placing a PEG tube on a bedbound demented patient. Have discussed with her son these concerns however he insists that he wants a PEG tube placed once the cellulitis has resolved which according to surgery might take 2 weeks. Ethics consult might be appropriate. - Time Time Spent with patient: 35 or more minutes Anticipated Discharge Disposition: to be determined Anticipated Discharge Timeframe: to be determined
[2019-11-28] MEDS: METOPROLOL TARTRATE PF/INJ 5 MG/5 ML SDV IV SCH ×4 (00:10→19:05)
[2019-11-28] MEDS: INSULIN REG, HUMAN 100 UNIT/ML 3 ML VIAL (PYX) SUBCUT SCH ×4 (00:16→18:00)
[2019-11-28 07:46] LABS: HEMATOCRIT 33.7 % (36.0-47.0); HEMOGLOBIN 11.6 g/dL (12.0-15.5); MEAN CORPUSCULAR HEMOGLOBIN 32.7 pg (27.0-33.4); MEAN CORPUSCULAR HGB CONC 34.5 g/dL (32.0-36.0); MEAN CORPUSCULAR VOLUME 95 fl (80-97); PLATELET COUNT 147 10^3/uL (150-450); RED BLOOD COUNT 3.56 10^6/uL (3.72-5.28); RED CELL DISTRIBUTION WIDTH 13.4 % (11.5-14.0); WHITE BLOOD COUNT 6.4 10^3/uL (4.0-10.5)
[2019-11-28 07:47] LABS: INTERNATIONAL RATION (INR) 1.13; PROTHROMBIN TIME 14.7 SEC (11.4-15.4)
[2019-11-28 08:04] LABS: PHOSPHORUS 2.7 mg/dL (2.5-4.5)
[2019-11-28 08:07] LABS: ALBUMIN 3.4 g/dL (3.5-5.0); ALKALINE PHOSPHATASE 72 U/L (38-126); ANION GAP 13 (5-19); ASPARTATE AMINO TRANSFERASE 30 U/L (14-36); BILIRUBIN,DIRECT 0.4 mg/dL (0.0-0.4); BILIRUBIN,TOTAL 1.1 mg/dL (0.2-1.3); BLOOD UREA NITROGEN 12 mg/dL (7-20); CALCIUM 8.9 mg/dL (8.4-10.2); CARBON DIOXIDE 25 mmol/L (22-30); CHLORIDE 105 mmol/L (98-107); GLUCOSE 136 mg/dL (75-110); TOTAL PROTEIN 6.4 g/dL (6.3-8.2)
[2019-11-28 08:10] LABS: PREALBUMIN 10.5 mg/dL (17.6-36.0)
--- NOTE | 2019-11-28 08:34 | PDOC PROGRESS REPORT ---
Subjective Progress Note for:: 11/28/19 Subjective:: comfortable Reason For Visit: G TUBE MALFUNCTION Physical Exam Vital Signs: Temp Pulse Resp BP Pulse Ox 98.5 F 80 18 147/89 H 100 11/27/19 20:02 11/28/19 05:08 11/28/19 05:08 11/28/19 05:08 11/28/19 05:08 Intake & Output 11/27/19 11/28/19 11/29/19 06:59 06:59 06:59 Intake Total 1999 250 Balance 1999 250 Weight 75.6 kg 75.6 kg General appearance: PRESENT: no acute distress GI/Abdominal exam: PRESENT: other - abdominal wall dressings C/D/I Results Laboratory Results: 11/28/19 06:47 11/28/19 06:47 11/28/19 11/28/19 11/28/19 06:47 06:47 06:47 WBC 6.4 RBC 3.56 L Hgb 11.6 L Hct 33.7 L MCV 95 MCH 32.7 MCHC 34.5 RDW 13.4 Plt Count 147 L Sodium 142.7 Potassium 4.0 Chloride 105 Carbon Dioxide 25 Anion Gap 13 BUN 12 Creatinine 0.63 Est GFR ( Amer) > 60 Glucose 136 H Calcium 8.9 Phosphorus 2.7 Magnesium 2.0 Total Bilirubin 1.1 AST 30 Alkaline Phosphatase 72 Total Protein 6.4 Albumin 3.4 L Prealbumin 10.5 L 11/25/19 09:38 Abdomen - Abscess Gram Stain - Final 11/25/19 09:38 Abdomen - Abscess Wound Culture - Final Escherichia Coli Klebsiella Pneumoniae No Anaerobic Organisms 11/25/19 09:37 Abdomen - Abscess Gram Stain - Final 11/25/19 09:37 Abdomen - Abscess Wound Culture - Final Klebsiella Pneumoniae Escherichia Coli No Anaerobic Organisms 11/24/19 14:40 Blood Blood Culture (PCR) - Final Staphylococcus Species 11/24/19 14:40 Blood Blood Culture - Final Staphylococcus Epidermidis Impressions: Abdomen/Pelvis CT 11/24/19 00:00 IMPRESSION: There is a gas and fluid collection in the soft tissues over the left anterior abdominal wall adjacent to the G-tube tract consistent with area of pocket of extravasated contrast versus abscess. Hepatic cysts Cardiac enlargement Diverticulosis without evidence of diverticulitis. Tube Placement 11/24/19 12:00 IMPRESSION: Malpositioned G-tube. PICC Line Exchange 11/25/19 00:00 IMPRESSION: SUCCESSFUL PLACEMENT OF A 5 FR DUAL LUMEN 36 CM PICC IN THE LEFT BASILIC VEIN. KUB X-Ray 11/25/19 10:45 IMPRESSION: Nasoenteric tube tip overlies distal stomach/proximal duodenum. Assessment & Plan - Diagnosis (1) Cutaneous abscess of abdominal wall Is this a current diagnosis for this admission?: Yes (2) Atrial fibrillation Qualifiers: Atrial fibrillation type: unspecified Qualified Code(s): I48.91 - Unspecified atrial fibrillation Is this a current diagnosis for this admission?: Yes (3) Gastrostomy tube dysfunction Is this a current diagnosis for this admission?: Yes - Time Anticipated Discharge Disposition: Home with Home Health Anticipated Discharge Timeframe: as per PCP - Plan Summary Plan Summary: A/ S/p I&D abdominal wall abscess secondary to infected PEG site Cx positive for Klebsiella Fely. Coli sensitive tocurrent abx treatment Ethic concerns in regard to placement of PEG in this elderly patient with dementia Concerns shared by Medical Service P/ waiting for Ethic Committee evaluation of patient condition and discussion with patient's POA So far, I will hold off further procedures. I will sign off. Please, call us with questions
[2019-11-28] MEDS: NORMAL SALINE 10 ML SDV (SCHEDULED) IV SCH ×2 (10:30→23:42)
[2019-11-28] MEDS: ENOXAPARIN SODIUM INJ 80 MG/0.8 ML DISP.SYRIN SUBCUT SCH ×2 (11:09→23:41)
[2019-11-28] MEDS: FAT EMULSIONS 250 ML IV SCH (14:25)
--- NOTE | 2019-11-28 17:20 | ADVANCED CARE ---
Attendance: Son, Colton Malhotra Resuscitation Status: Full Code Discussion: We discussed Ms. Keyes's advanced, end-stage dementia and exceedingly poor overall prognosis at length. Her son/POA, Colton, would like for her to remain full code and get another G-tube for nutrition as soon as possible. We discussed that we would be pursuing an ethics consult and family meeting with everyone present, and he is amenable. Ethics consult meeting held today without son present. Family meeting to be held with myself, surgery, patient's son, case management on Thursday11/30/2019 afternoon. Time Spent: >20 minutes
--- NOTE | 2019-11-28 17:39 | PDOC PROGRESS REPORT ---
Subjective Progress Note for:: 11/28/19 Reason For Visit: G TUBE MALFUNCTION Physical Exam Vital Signs: Temp Pulse Resp BP Pulse Ox 98.6 F 63 18 104/57 L 97 11/28/19 13:15 11/28/19 14:04 11/28/19 14:04 11/28/19 13:15 11/28/19 14:04 Intake & Output 11/27/19 11/28/19 11/29/19 06:59 06:59 06:59 Intake Total 1999 250 Balance 1999 250 Weight 75.6 kg 75.6 kg 75.6 kg General appearance: PRESENT: no acute distress Eye exam: ABSENT: scleral icterus Mouth exam: PRESENT: moist Neck exam: ABSENT: JVD Respiratory exam: PRESENT: clear to auscultation nancy Cardiovascular exam: PRESENT: RRR GI/Abdominal exam: PRESENT: normal bowel sounds, soft, other - abdominal binder in place Gentrourinary exam: ABSENT: indwelling catheter Extremities exam: ABSENT: pedal edema Neurological exam: PRESENT: altered Psychiatric exam: PRESENT: flat affect Skin exam: ABSENT: rash Results Laboratory Results: 11/28/19 06:47 11/28/19 06:47 11/28/19 11/28/19 11/28/19 06:47 06:47 06:47 WBC 6.4 RBC 3.56 L Hgb 11.6 L Hct 33.7 L MCV 95 MCH 32.7 MCHC 34.5 RDW 13.4 Plt Count 147 L Sodium 142.7 Potassium 4.0 Chloride 105 Carbon Dioxide 25 Anion Gap 13 BUN 12 Creatinine 0.63 Est GFR ( Amer) > 60 Glucose 136 H Calcium 8.9 Phosphorus 2.7 Magnesium 2.0 Total Bilirubin 1.1 AST 30 Alkaline Phosphatase 72 Total Protein 6.4 Albumin 3.4 L Prealbumin 10.5 L Impressions: Abdomen/Pelvis CT 11/24/19 00:00 IMPRESSION: There is a gas and fluid collection in the soft tissues over the left anterior abdominal wall adjacent to the G-tube tract consistent with area of pocket of extravasated contrast versus abscess. Hepatic cysts Cardiac enlargement Diverticulosis without evidence of diverticulitis. Tube Placement 11/24/19 12:00 IMPRESSION: Malpositioned G-tube. PICC Line Exchange 11/25/19 00:00 IMPRESSION: SUCCESSFUL PLACEMENT OF A 5 FR DUAL LUMEN 36 CM PICC IN THE LEFT BASILIC VEIN. KUB X-Ray 11/25/19 10:45 IMPRESSION: Nasoenteric tube tip overlies distal stomach/proximal duodenum. Assessment and Plan - Diagnosis (1) Atrial fibrillation Qualifiers: Atrial fibrillation type: unspecified Qualified Code(s): I48.91 - Unspecified atrial fibrillation Is this a current diagnosis for this admission?: Yes (2) Cutaneous abscess of abdominal wall Is this a current diagnosis for this admission?: Yes (3) Dementia Qualifiers: Dementia type: vascular dementia Dementia behavioral disturbance: without behavioral disturbance Qualified Code(s): F01.50 - Vascular dementia without behavioral disturbance Is this a current diagnosis for this admission?: Yes (4) History of stroke Is this a current diagnosis for this admission?: Yes (5) Gastrostomy tube dysfunction Is this a current diagnosis for this admission?: Yes - Plan Summary Summary: ANGIE KEYES is an 89 year old female with PMH of advanced vascular dementia, CVA, atrial fibrillation, dysphagia s/p G tube placement who presented to the ED on 11/24/2019 due to a dislodged G tube. Abdominal Wall Abscess/Cellulitis at site of prior G-tube: Patient has had the G tube for about 2 years and has been seen in the ED repeatedly and regularly with dislodged G tube. During her presentation on 11/23, due to concern for serosanguinous discharge around the G tube area, surgery was consulted, and she was found to have a large subcutaneous abscess cavity located in the anterior upper abdominal wall with draining point at the old PEG site. She underwent I&D by Dr. Kapoor on 11/25/2019. Due to the location of the abscess, the G tube could not be replaced, so an NG tube was placed instead. Per Dr. Kapoor, she would need 1-2 weeks of abx until abscess has healed, and then G tube placement can then be pursued. Unfortunately, Ms. Keyes pulled out her NG tube, and so Dr. Kapoor ordered a PICC line on 11/24 and she was started on TPN. - remains on levaquin for abdominal wall cellulitis/abscess Advanced, End-Stage Dementia: her son tells me that she spends the vast majority of her day asleep. She is bed-bound, unable to converse or eat. She has an exceedingly poor quality of life with no hope for improvement. I have discussed with her son that her disease is progressive, and is expected to continue to worsen. She has very poor overall prognosis, with or without a G-tube. She is an appropriate candidate for hospice, in which her son is not interested. - NPO due to high aspiration risk - mittens in place due to pulling at her IVs Goals of Care: Several extensive goals of care conversations have been had with her son/POA. She remains full code. Ethics consult meeting occurred on 11/27. - family meeting to be held on 11/29 Atrial Fibrillation: rate controlled. She is on treatment dose Lovenox. HR remains in 60-70s. - she has no acute indication for telemetry, will discontinue Dispo: arrange either Home Health or transfer to LTAC vs SNF for ongoing IV antibiotics and TPN via PICC until her abdominal abscess heals. She can have a G-tube surgically replaced after her wound has healed, most likely in 2 weeks. - Time Time Spent with patient: 35 or more minutes Anticipated Discharge Disposition: Detention Facility Anticipated Discharge Timeframe: within 48 hours
[2019-11-28] MEDS: AMINO ACIDS 5 %/DEXTROSE 20 % 1,000 ML IV PRN (18:12)
[2019-11-29] MEDS: INSULIN REG, HUMAN 100 UNIT/ML 3 ML VIAL (PYX) SUBCUT SCH ×5 (01:03→23:20)
[2019-11-29] MEDS: METOPROLOL TARTRATE PF/INJ 5 MG/5 ML SDV IV SCH ×5 (01:05→23:40)
[2019-11-29 07:30] LABS: ALBUMIN 3.1 g/dL (3.5-5.0); ALKALINE PHOSPHATASE 64 U/L (38-126); ANION GAP 8 (5-19); ASPARTATE AMINO TRANSFERASE 25 U/L (14-36); BILIRUBIN,DIRECT 0.2 mg/dL (0.0-0.4); BILIRUBIN,TOTAL 0.6 mg/dL (0.2-1.3); BLOOD UREA NITROGEN 15 mg/dL (7-20); CALCIUM 8.1 mg/dL (8.4-10.2); CARBON DIOXIDE 27 mmol/L (22-30); CHLORIDE 107 mmol/L (98-107); GLUCOSE 122 mg/dL (75-110); PHOSPHORUS 3.1 mg/dL (2.5-4.5); POTASSIUM 3.7 mmol/L (3.6-5.0); TOTAL PROTEIN 6.2 g/dL (6.3-8.2)
[2019-11-29 07:37] LABS: PREALBUMIN 10.5 mg/dL (17.6-36.0)
[2019-11-29 08:14] LABS: HEMATOCRIT 30.4 % (36.0-47.0); HEMOGLOBIN 10.6 g/dL (12.0-15.5); MEAN CORPUSCULAR HEMOGLOBIN 32.8 pg (27.0-33.4); MEAN CORPUSCULAR HGB CONC 34.8 g/dL (32.0-36.0); MEAN CORPUSCULAR VOLUME 94 fl (80-97); PLATELET COUNT 139 10^3/uL (150-450); RED BLOOD COUNT 3.22 10^6/uL (3.72-5.28); RED CELL DISTRIBUTION WIDTH 13.7 % (11.5-14.0); WHITE BLOOD COUNT 4.7 10^3/uL (4.0-10.5)
[2019-11-29] MEDS: ENOXAPARIN SODIUM INJ 80 MG/0.8 ML DISP.SYRIN SUBCUT SCH ×2 (11:03→22:57)
[2019-11-29] MEDS: LEVOFLOXACIN 750 MG/D5W RTU 750 MG/150 ML RTUPB IV SCH (11:30)
[2019-11-29] MEDS: NORMAL SALINE 10 ML SDV (SCHEDULED) IV SCH ×2 (13:15→23:26)
[2019-11-29] MEDS: AMINO ACIDS 5 %/DEXTROSE 20 % 1,000 ML IV PRN (13:16)
--- NOTE | 2019-11-29 18:19 | PDOC PROGRESS REPORT ---
Subjective Progress Note for:: 11/29/19 Subjective:: NAEO Reason For Visit: G TUBE MALFUNCTION Physical Exam Vital Signs: Temp Pulse Resp BP Pulse Ox 98.7 F 63 16 120/70 96 11/29/19 05:18 11/29/19 09:25 11/29/19 09:25 11/29/19 05:18 11/29/19 09:25 Intake & Output 11/28/19 11/29/19 11/30/19 06:59 06:59 06:59 Intake Total 250 250 Balance 250 250 Weight 75.6 kg 74.1 kg General appearance: PRESENT: no acute distress Eye exam: ABSENT: scleral icterus Mouth exam: PRESENT: moist Neck exam: ABSENT: JVD Respiratory exam: PRESENT: clear to auscultation nancy, unlabored Cardiovascular exam: PRESENT: RRR GI/Abdominal exam: PRESENT: normal bowel sounds, other - abdominal binder in place Extremities exam: PRESENT: other - LUE PICC. ABSENT: pedal edema Neurological exam: PRESENT: altered, awake Psychiatric exam: PRESENT: flat affect Skin exam: ABSENT: petechiae, rash Results Laboratory Results: 11/29/19 06:05 11/29/19 06:05 11/29/19 11/29/19 11/29/19 06:05 06:05 06:05 WBC 4.7 RBC 3.22 L Hgb 10.6 L Hct 30.4 L MCV 94 MCH 32.8 MCHC 34.8 RDW 13.7 Plt Count 139 L Sodium 141.5 Potassium 3.7 Chloride 107 Carbon Dioxide 27 Anion Gap 8 BUN 15 Creatinine 0.51 L Est GFR ( Amer) > 60 Glucose 122 H Calcium 8.1 L Phosphorus 3.1 Total Bilirubin 0.6 AST 25 Alkaline Phosphatase 64 Total Protein 6.2 L Albumin 3.1 L Prealbumin 10.5 L Triglycerides 81 11/24/19 15:50 Blood Blood Culture - Final NO GROWTH IN 5 DAYS Impressions: Abdomen/Pelvis CT 11/24/19 00:00 IMPRESSION: There is a gas and fluid collection in the soft tissues over the left anterior abdominal wall adjacent to the G-tube tract consistent with area of pocket of extravasated contrast versus abscess. Hepatic cysts Cardiac enlargement Diverticulosis without evidence of diverticulitis. Tube Placement 11/24/19 12:00 IMPRESSION: Malpositioned G-tube. PICC Line Exchange 11/25/19 00:00 IMPRESSION: SUCCESSFUL PLACEMENT OF A 5 FR DUAL LUMEN 36 CM PICC IN THE LEFT BASILIC VEIN. KUB X-Ray 11/25/19 10:45 IMPRESSION: Nasoenteric tube tip overlies distal stomach/proximal duodenum. Assessment and Plan - Diagnosis (1) Atrial fibrillation Qualifiers: Atrial fibrillation type: unspecified Qualified Code(s): I48.91 - Unspecified atrial fibrillation Is this a current diagnosis for this admission?: Yes (2) Cutaneous abscess of abdominal wall Is this a current diagnosis for this admission?: Yes (3) Dementia Qualifiers: Dementia type: vascular dementia Dementia behavioral disturbance: without behavioral disturbance Qualified Code(s): F01.50 - Vascular dementia without behavioral disturbance Is this a current diagnosis for this admission?: Yes (4) History of stroke Is this a current diagnosis for this admission?: Yes (5) Gastrostomy tube dysfunction Is this a current diagnosis for this admission?: Yes - Plan Summary Summary: ANGIE KEYES is an 89 year old female with PMH of advanced vascular dementia, CVA, atrial fibrillation on AC, dysphagia s/p G tube placement who presented to the ED on 11/24/2019 due to a dislodged G tube. Abdominal Wall Abscess/Cellulitis at site of prior G-tube: Patient has had the G tube for about 2 years and has been seen in the ED repeatedly and regularly with dislodged G tube. During her presentation on 11/23, due to concern for serosanguinous discharge around the G tube area, surgery was consulted, and she was found to have a large subcutaneous abscess cavity located in the anterior upper abdominal wall with draining point at the old PEG site. She underwent I&D by Dr. Kapoor on 11/25/2019. Due to the location of the abscess, the G tube could not be replaced, so an NG tube was placed instead. Per Dr. Kapoor, she would need 1-2 weeks of abx until abscess has healed, and then G tube placement can then be pursued. Unfortunately, Ms. Keyes pulled out her NG tube, and so Dr. Kapoor ordered a PICC line on 11/24 and she was started on TPN. - remains on levaquin for abdominal wall cellulitis/abscess Advanced, End-Stage Dementia: her son tells me that she spends the vast majority of her day asleep. She is bed-bound, unable to converse or eat. She has an exceedingly poor quality of life with no hope for improvement. I have discussed with her son that her disease is progressive, and is expected to continue to worsen. She has very poor overall prognosis, with or without a G-tube. She is an appropriate candidate for hospice, in which her son is not interested. - NPO due to high aspiration risk - mittens in place due to pulling at her IVs Goals of Care: Several extensive goals of care conversations have been had with her son/POA. She remains full code. Ethics consult meeting occurred on 11/27. - family meeting to be held on 11/29 on 2 PM with the medical/surgical teams and SW Atrial Fibrillation: rate controlled. She is on treatment dose Lovenox. HR remains in 60-70s. - she has no acute indication for telemetry, discontinued Dispo: arrange either Home Health or transfer to LTAC vs SNF for ongoing IV antibiotics and TPN via PICC until her abdominal abscess heals. She can have a G-tube surgically replaced after her wound has healed, most likely in 2+ weeks. - Time Time Spent with patient: 25-34 minutes Anticipated Discharge Disposition: [facility] Anticipated Discharge Timeframe: within 48 hours
[2019-11-30] MEDS: SCOPOLAMINE HYDROBROMIDE 1.5 MG PATCH.TD72 TD SCH (05:14)
[2019-11-30] MEDS: INSULIN REG, HUMAN 100 UNIT/ML 3 ML VIAL (PYX) SUBCUT SCH ×4 (06:40→23:18)
[2019-11-30] MEDS: METOPROLOL TARTRATE PF/INJ 5 MG/5 ML SDV IV SCH ×3 (06:41→17:22)
[2019-11-30] MEDS: NORMAL SALINE 10 ML SDV (SCHEDULED) IV SCH ×2 (09:56→22:07)
[2019-11-30] MEDS: ENOXAPARIN SODIUM INJ 80 MG/0.8 ML DISP.SYRIN SUBCUT SCH ×2 (09:56→22:06)
[2019-11-30] MEDS: AMINO ACIDS 5 %/DEXTROSE 20 % 1,000 ML IV PRN (09:56)
[2019-11-30 18:05] LABS: HEMATOCRIT 32.5 % (36.0-47.0); HEMOGLOBIN 11.2 g/dL (12.0-15.5); MEAN CORPUSCULAR HEMOGLOBIN 32.7 pg (27.0-33.4); MEAN CORPUSCULAR HGB CONC 34.5 g/dL (32.0-36.0); MEAN CORPUSCULAR VOLUME 95 fl (80-97); PLATELET COUNT 169 10^3/uL (150-450); RED BLOOD COUNT 3.42 10^6/uL (3.72-5.28); RED CELL DISTRIBUTION WIDTH 13.5 % (11.5-14.0); WHITE BLOOD COUNT 5.9 10^3/uL (4.0-10.5)
--- NOTE | 2019-11-30 18:21 | PDOC PROGRESS REPORT ---
Subjective Progress Note for:: 11/30/19 Subjective:: NAEO. Son cancelled family mtg today, would like to reschedule for tomorrow at 3 PM. Reason For Visit: G TUBE MALFUNCTION Physical Exam Vital Signs: Temp Pulse Resp BP Pulse Ox 99.2 F 66 25 H 99/78 L 98 11/30/19 08:52 11/30/19 14:00 11/30/19 08:52 11/30/19 08:52 11/30/19 08:52 Intake & Output 11/29/19 11/30/19 12/01/19 06:59 06:59 06:59 Intake Total 250 150 Balance 250 150 Weight 74.1 kg 75.6 kg 75.6 kg General appearance: PRESENT: no acute distress Eye exam: ABSENT: scleral icterus Mouth exam: PRESENT: moist Neck exam: ABSENT: JVD Respiratory exam: PRESENT: clear to auscultation nancy, unlabored Cardiovascular exam: PRESENT: RRR GI/Abdominal exam: PRESENT: normal bowel sounds, soft Extremities exam: ABSENT: pedal edema Neurological exam: PRESENT: altered Psychiatric exam: PRESENT: flat affect Skin exam: PRESENT: dry Results Laboratory Results: 11/30/19 17:35 11/29/19 06:05 11/30/19 17:35 WBC 5.9 RBC 3.42 L Hgb 11.2 L Hct 32.5 L MCV 95 MCH 32.7 MCHC 34.5 RDW 13.5 Plt Count 169 11/24/19 15:50 Blood Blood Culture - Final NO GROWTH IN 5 DAYS Impressions: Abdomen/Pelvis CT 11/24/19 00:00 IMPRESSION: There is a gas and fluid collection in the soft tissues over the left anterior abdominal wall adjacent to the G-tube tract consistent with area of pocket of extravasated contrast versus abscess. Hepatic cysts Cardiac enlargement Diverticulosis without evidence of diverticulitis. Tube Placement 11/24/19 12:00 IMPRESSION: Malpositioned G-tube. PICC Line Exchange 11/25/19 00:00 IMPRESSION: SUCCESSFUL PLACEMENT OF A 5 FR DUAL LUMEN 36 CM PICC IN THE LEFT BASILIC VEIN. KUB X-Ray 11/25/19 10:45 IMPRESSION: Nasoenteric tube tip overlies distal stomach/proximal duodenum. Assessment and Plan - Diagnosis (1) Atrial fibrillation Qualifiers: Atrial fibrillation type: unspecified Qualified Code(s): I48.91 - Unspecified atrial fibrillation Is this a current diagnosis for this admission?: Yes (2) Cutaneous abscess of abdominal wall Is this a current diagnosis for this admission?: Yes (3) Dementia Qualifiers: Dementia type: vascular dementia Dementia behavioral disturbance: without behavioral disturbance Qualified Code(s): F01.50 - Vascular dementia without behavioral disturbance Is this a current diagnosis for this admission?: Yes (4) History of stroke Is this a current diagnosis for this admission?: Yes (5) Gastrostomy tube dysfunction Is this a current diagnosis for this admission?: Yes - Plan Summary Summary: ANGIE KEYES is an 89 year old female with PMH of advanced vascular dementia, CVA, atrial fibrillation on AC, dysphagia s/p G tube placement who presented to the ED on 11/24/2019 due to a dislodged G tube. Abdominal Wall Abscess/Cellulitis at site of prior G-tube: Patient has had the G tube for about 2 years and has been seen in the ED repeatedly and regularly with dislodged G tube. During her presentation on 11/23, due to concern for serosanguinous discharge around the G tube area, surgery was consulted, and she was found to have a large subcutaneous abscess cavity located in the anterior upper abdominal wall with draining point at the old PEG site. She underwent I&D by Dr. Kapoor on 11/25/2019. Due to the location of the abscess, the G tube could not be replaced, so an NG tube was placed instead. Per Dr. Kapoor, she would need 1-2 weeks of abx until abscess has healed, and then G tube placement can then be pursued. Unfortunately, Ms. Keyes pulled out her NG tube, and so Dr. Kapoor ordered a PICC line on 11/24 and she was started on TPN. - remains on levaquin for abdominal wall cellulitis/abscess Advanced, End-Stage Dementia: her son tells me that she spends the vast majority of her day asleep. She is bed-bound, unable to converse or eat. She has an exceedingly poor quality of life with no hope for improvement. I have discussed with her son that her disease is progressive, and is expected to continue to worsen. She has very poor overall prognosis, with or without a G-tube. She is an appropriate candidate for hospice, in which her son is not interested. - NPO due to high aspiration risk - mittens in place due to pulling at her IVs Goals of Care: Several extensive goals of care conversations have been had with her son/POA. She remains full code. Ethics consult meeting occurred on 11/27. - family meeting to be held on 11/30 at 3 PM with the medical/surgical teams and SW Atrial Fibrillation: rate controlled. She is on treatment dose Lovenox. HR remains in 60-70s. - she has no acute indication for telemetry, discontinued Dispo: arrange either Home Health or transfer to LTAC vs SNF for ongoing IV antibiotics and TPN via PICC until her abdominal abscess heals. She can have a G-tube surgically replaced after her wound has healed, most likely in 2+ weeks. - Time Time Spent with patient: 25-34 minutes Anticipated Discharge Disposition: [facility] Anticipated Discharge Timeframe: within 48 hours
[2019-12-01] MEDS: METOPROLOL TARTRATE PF/INJ 5 MG/5 ML SDV IV SCH ×4 (00:12→17:29)
[2019-12-01] MEDS: INSULIN REG, HUMAN 100 UNIT/ML 3 ML VIAL (PYX) SUBCUT SCH ×3 (05:59→17:29)
[2019-12-01 07:57] LABS: ALBUMIN 3.7 g/dL (3.5-5.0); ALKALINE PHOSPHATASE 78 U/L (38-126); ANION GAP 15 (5-19); ASPARTATE AMINO TRANSFERASE 31 U/L (14-36); BILIRUBIN,DIRECT 0.3 mg/dL (0.0-0.4); BILIRUBIN,TOTAL 0.7 mg/dL (0.2-1.3); BLOOD UREA NITROGEN 13 mg/dL (7-20); CALCIUM 8.8 mg/dL (8.4-10.2); CARBON DIOXIDE 21 mmol/L (22-30); CHLORIDE 107 mmol/L (98-107); GLUCOSE 113 mg/dL (75-110); PHOSPHORUS 3.9 mg/dL (2.5-4.5); POTASSIUM 4.8 mmol/L (3.6-5.0); TOTAL PROTEIN 7.1 g/dL (6.3-8.2)
[2019-12-01] MEDS: AMINO ACIDS 5 %/DEXTROSE 20 % 1,000 ML IV PRN (07:59)
[2019-12-01 08:09] LABS: PREALBUMIN 14.4 mg/dL (17.6-36.0)
[2019-12-01] MEDS: FAT EMULSIONS 250 ML IV SCH ×2 (09:58→12:19)
[2019-12-01] MEDS: NORMAL SALINE 10 ML SDV (SCHEDULED) IV SCH ×2 (09:58→21:14)
[2019-12-01] MEDS: LEVOFLOXACIN 750 MG/D5W RTU 750 MG/150 ML RTUPB IV SCH (09:59)
[2019-12-01] MEDS: ENOXAPARIN SODIUM INJ 80 MG/0.8 ML DISP.SYRIN SUBCUT SCH ×2 (10:00→21:09)
[2019-12-01] MEDS: MORPHINE SULFATE 10 MG/ML INJ IV PRN (14:19)
--- NOTE | 2019-12-01 19:05 | PDOC PROGRESS REPORT ---
Subjective Progress Note for:: 12/01/19 Subjective:: NAEO Reason For Visit: G TUBE MALFUNCTION Physical Exam Vital Signs: Temp Pulse Resp BP Pulse Ox 98.2 F 90 21 H 136/74 H 93 12/01/19 16:00 12/01/19 16:00 12/01/19 16:00 12/01/19 16:00 12/01/19 16:00 Intake & Output 11/30/19 12/01/19 12/02/19 06:59 06:59 06:59 Intake Total 150 400 Balance 150 400 Weight 75.6 kg 75.6 kg General appearance: PRESENT: no acute distress Eye exam: ABSENT: scleral icterus Mouth exam: PRESENT: moist Throat exam: ABSENT: post pharyngeal erythema Neck exam: ABSENT: JVD Respiratory exam: PRESENT: clear to auscultation nancy, unlabored Cardiovascular exam: PRESENT: RRR GI/Abdominal exam: PRESENT: normal bowel sounds, soft, other - midline abdominal wall abscess packed (deep) without surrounding cellulitis Gentrourinary exam: ABSENT: indwelling catheter Extremities exam: ABSENT: pedal edema Neurological exam: PRESENT: altered Psychiatric exam: PRESENT: flat affect Results Laboratory Results: 11/30/19 17:35 12/01/19 06:28 12/01/19 06:28 Sodium 142.6 Potassium 4.8 Chloride 107 Carbon Dioxide 21 L Anion Gap 15 BUN 13 Creatinine 0.53 Est GFR ( Amer) > 60 Glucose 113 H Calcium 8.8 Phosphorus 3.9 Total Bilirubin 0.7 AST 31 Alkaline Phosphatase 78 Total Protein 7.1 Albumin 3.7 Prealbumin 14.4 L Impressions: Abdomen/Pelvis CT 11/24/19 00:00 IMPRESSION: There is a gas and fluid collection in the soft tissues over the left anterior abdominal wall adjacent to the G-tube tract consistent with area of pocket of extravasated contrast versus abscess. Hepatic cysts Cardiac enlargement Diverticulosis without evidence of diverticulitis. Tube Placement 11/24/19 12:00 IMPRESSION: Malpositioned G-tube. PICC Line Exchange 11/25/19 00:00 IMPRESSION: SUCCESSFUL PLACEMENT OF A 5 FR DUAL LUMEN 36 CM PICC IN THE LEFT BASILIC VEIN. KUB X-Ray 11/25/19 10:45 IMPRESSION: Nasoenteric tube tip overlies distal stomach/proximal duodenum. Assessment and Plan - Diagnosis (1) Atrial fibrillation Qualifiers: Atrial fibrillation type: unspecified Qualified Code(s): I48.91 - Unspecified atrial fibrillation Is this a current diagnosis for this admission?: Yes (2) Cutaneous abscess of abdominal wall Is this a current diagnosis for this admission?: Yes (3) Dementia Qualifiers: Dementia type: vascular dementia Dementia behavioral disturbance: without behavioral disturbance Qualified Code(s): F01.50 - Vascular dementia without behavioral disturbance Is this a current diagnosis for this admission?: Yes (4) History of stroke Is this a current diagnosis for this admission?: Yes - Plan Summary Summary: ANGIE KEYES is an 89 year old female with PMH of advanced vascular dementia, CVA, atrial fibrillation on AC, dysphagia s/p G tube placement who presented to the ED on 11/24/2019 due to a dislodged G tube. Abdominal Wall Abscess/Cellulitis at site of prior G-tube: Patient has had the G tube for about 2 years and has been seen in the ED repeatedly and regularly with dislodged G tube. During her presentation on 11/23, due to concern for serosanguinous discharge around the G tube area, surgery was consulted, and she was found to have a large, deep subcutaneous abscess cavity located in the anterior upper abdominal wall with draining point at the old PEG site. She underwent I&D by Dr. Kapoor on 11/25/2019. Due to the location of the abscess, the G tube could not be replaced, so an NG tube was placed instead. Per Dr. Kapoor, she would need a different source of nutrition until the abscess heals, and then G tube placement can then be pursued. Unfortunately, Ms. Keyes pulled out her NG tube, and so Dr. Kapoor ordered a PICC line on 11/24 and she was started on TPN. She has completed 7 days of levaquin therapy for abdominal wall cellulitis/abscess. She is tolerating TPN at goal rate. Advanced, End-Stage Dementia: her son tells me that she spends the vast majority of her day asleep. She is bed-bound, unable to converse or eat. She has an exceedingly poor quality of life with no hope for improvement. I have discussed with her son that her disease is progressive, and is expected to continue to worsen. She has very poor overall prognosis, with or without a G-tube. She is an appropriate candidate for hospice, in which her son is not interested. - NPO due to high aspiration risk - mittens in place due to pulling at her IVs Goals of Care: Several extensive goals of care conversations have been had with her son/POA. She remains full code. Ethics consult meeting occurred on 11/27. Family meeting was held on 11/30 with her son, RN, MIREILLE, Dr. Kapoor and myself. We discussed that two different surgeons and two different internists have all agreed that Ms. Keyes is a candidate for hospice, has an exceedingly poor prognosis and poor quality of life. Her son is still wanting to pursue all measures and remains hopeful that she will be able to have a G-tube replaced. We discussed that her healing will be slow and prolonged due to her advanced age and poor nutritional status, and may take many weeks, during which time she is at risk for developing further complications, such as bacteremia, from TPN and PICC line. Atrial Fibrillation: rate controlled. She is on treatment dose Lovenox. HR remains in 60-70s. She has no acute indication for telemetry, discontinued. Dispo: arrange either Home Health or transfer to LTAC for ongoing TPN via PICC and wound care until her abdominal abscess heals. She can have a G-tube surgically replaced after her wound has healed, most likely in 2-4 weeks as outpatient. She is ready for discharge at this time. - Time Time Spent with patient: 35 or more minutes Anticipated Discharge Disposition: Home with Home Health Anticipated Discharge Timeframe: within 24 hours
--- NOTE | 2019-12-01 19:08 | ADVANCED CARE ---
- Diagnosis (1) Cutaneous abscess of abdominal wall Diagnosis Current: Yes (2) Dementia Diagnosis Current: Yes (3) History of stroke Diagnosis Current: Yes Attendance: patient's son, Colton Adrianyou DIAZ, Carmenza KENDRICK, Negin surgery, Dr. Kapoor hospitalist, Dr. Nix Resuscitation Status: Full Code Discussion: Her son tells me that she spends the vast majority of her day asleep. She is bed-bound, unable to converse or eat. She has an exceedingly poor quality of life with no hope for improvement. I have discussed with her son that her disease is progressive, and is expected to continue to worsen. She has very poor overall prognosis, with or without a G-tube. She is an appropriate candidate for hospice. Family meeting was held on 11/30 with her son, EMILY, MIREILLE, Dr. Kapoor and myself. We discussed that two different surgeons and two different internists have all agreed that Ms. Keyes is a candidate for hospice, has an exceedingly poor prognosis and poor quality of life. Her son is still wanting to pursue all measures and remains hopeful that she will be able to have a G-tube replaced. We discussed that her healing will be slow and prolonged due to her advanced age and poor nutritional status, and may take many weeks, during which time she is at risk for developing further complications, such as bacteremia, from TPN and PICC line. She remains FULL CODE. Time Spent: >30 minutes
[2019-12-02] MEDS: INSULIN REG, HUMAN 100 UNIT/ML 3 ML VIAL (PYX) SUBCUT SCH ×4 (00:23→18:41)
[2019-12-02] MEDS: METOPROLOL TARTRATE PF/INJ 5 MG/5 ML SDV IV SCH ×4 (00:24→18:41)
[2019-12-02] MEDS: AMINO ACIDS 5 %/DEXTROSE 20 % 1,000 ML IV PRN ×2 (03:02→20:38)
[2019-12-02 06:51] LABS: HEMATOCRIT 29.9 % (36.0-47.0); HEMOGLOBIN 10.4 g/dL (12.0-15.5); MEAN CORPUSCULAR HEMOGLOBIN 33.1 pg (27.0-33.4); MEAN CORPUSCULAR HGB CONC 34.7 g/dL (32.0-36.0); MEAN CORPUSCULAR VOLUME 95 fl (80-97); PLATELET COUNT 160 10^3/uL (150-450); RED BLOOD COUNT 3.14 10^6/uL (3.72-5.28); RED CELL DISTRIBUTION WIDTH 13.6 % (11.5-14.0); WHITE BLOOD COUNT 5.3 10^3/uL (4.0-10.5)
[2019-12-02] MEDS: ENOXAPARIN SODIUM INJ 80 MG/0.8 ML DISP.SYRIN SUBCUT SCH ×2 (11:04→22:33)
[2019-12-02] MEDS: NORMAL SALINE 10 ML SDV (SCHEDULED) IV SCH ×2 (11:05→22:34)
--- NOTE | 2019-12-02 18:06 | PDOC PROGRESS REPORT ---
Subjective Progress Note for:: 12/02/19 Subjective:: NAEO Reason For Visit: G TUBE MALFUNCTION Physical Exam Vital Signs: Temp Pulse Resp BP Pulse Ox 98.6 F 68 19 101/42 L 100 12/02/19 14:58 12/02/19 14:58 12/02/19 14:58 12/02/19 14:58 12/02/19 14:58 Intake & Output 12/01/19 12/02/19 12/03/19 06:59 06:59 06:59 Intake Total 400 Balance 400 Weight 75.6 kg 73.5 kg 73.5 kg General appearance: PRESENT: no acute distress Mouth exam: PRESENT: moist Teeth exam: PRESENT: edentulous Neck exam: ABSENT: JVD Respiratory exam: PRESENT: clear to auscultation nancy, unlabored Cardiovascular exam: PRESENT: RRR GI/Abdominal exam: PRESENT: normal bowel sounds, soft, other - deep midline abdominal wound, packed Extremities exam: ABSENT: pedal edema Neurological exam: PRESENT: altered Psychiatric exam: ABSENT: agitated Results Laboratory Results: 12/02/19 05:45 12/01/19 06:28 12/02/19 05:45 WBC 5.3 RBC 3.14 L Hgb 10.4 L Hct 29.9 L MCV 95 MCH 33.1 MCHC 34.7 RDW 13.6 Plt Count 160 Impressions: Abdomen/Pelvis CT 11/24/19 00:00 IMPRESSION: There is a gas and fluid collection in the soft tissues over the left anterior abdominal wall adjacent to the G-tube tract consistent with area of pocket of extravasated contrast versus abscess. Hepatic cysts Cardiac enlargement Diverticulosis without evidence of diverticulitis. Tube Placement 11/24/19 12:00 IMPRESSION: Malpositioned G-tube. PICC Line Exchange 11/25/19 00:00 IMPRESSION: SUCCESSFUL PLACEMENT OF A 5 FR DUAL LUMEN 36 CM PICC IN THE LEFT BASILIC VEIN. KUB X-Ray 11/25/19 10:45 IMPRESSION: Nasoenteric tube tip overlies distal stomach/proximal duodenum. Assessment and Plan - Diagnosis (1) Cutaneous abscess of abdominal wall Is this a current diagnosis for this admission?: Yes (2) Dementia Qualifiers: Dementia type: vascular dementia Dementia behavioral disturbance: without behavioral disturbance Qualified Code(s): F01.50 - Vascular dementia without behavioral disturbance Is this a current diagnosis for this admission?: Yes (3) History of stroke Is this a current diagnosis for this admission?: Yes - Plan Summary Summary: ANGIE KEYES is an 89 year old female with PMH of advanced vascular dementia, CVA, atrial fibrillation on AC, dysphagia s/p G tube placement who presented to the ED on 11/24/2019 due to a dislodged G tube. Abdominal Wall Abscess/Cellulitis at site of prior G-tube: Patient has had the G tube for about 2 years and has been seen in the ED repeatedly and regularly with dislodged G tube. During her presentation on 11/23, due to concern for serosanguinous discharge around the G tube area, surgery was consulted, and she was found to have a large, deep subcutaneous abscess cavity located in the anterior upper abdominal wall with draining point at the old PEG site. She underwent I&D by Dr. Kapoor on 11/25/2019. Due to the location of the abscess, the G tube could not be replaced, so an NG tube was placed instead. Per Dr. Kapoor, she would need a different source of nutrition until the abscess heals, and then G tube placement can then be pursued. Unfortunately, Ms. Keyes pulled out her NG tube, and so Dr. Kapoor ordered a PICC line on 11/24 and she was started on TPN. She has completed 7 days of levaquin therapy for abdominal wall cellulitis/abscess. She is tolerating TPN at goal rate. Advanced, End-Stage Dementia: her son tells me that she spends the vast majority of her day asleep. She is bed-bound, unable to converse or eat. She has an exceedingly poor quality of life with no hope for improvement. I have discussed with her son that her disease is progressive, and is expected to continue to worsen. She has very poor overall prognosis, with or without a G-tube. She is an appropriate candidate for hospice, in which her son is not interested. - NPO due to high aspiration risk - mittens in place due to pulling at her IVs Goals of Care: Several extensive goals of care conversations have been had with her son/POA. She remains full code. Ethics consult meeting occurred on 11/27. Family meeting was held on 11/30 with her son, RN, SW, Dr. Kapoor and myself. We discussed that two different surgeons and two different internists have all agreed that Ms. Keyes is a candidate for hospice, has an exceedingly poor prognosis and poor quality of life. Her son is still wanting to pursue all measures and remains hopeful that she will be able to have a G-tube replaced. We discussed that her healing will be slow and prolonged due to her advanced age and poor nutritional status, and may take many weeks, during which time she is at risk for developing further complications, such as bacteremia, from TPN and PICC line. Atrial Fibrillation: rate controlled. She is on treatment dose Lovenox. HR remains in 60-70s. She has no acute indication for telemetry, discontinued. Dispo: arrange Home Health for ongoing TPN via PICC and wound care until her abdominal abscess heals. She can have a G-tube surgically replaced after her wound has healed, most likely in 2-4 weeks as outpatient. She is ready for discharge at this time. She is not an appropriate candidate for SNF or LTAC facilities, both of which have declined to accept this patient. - Time Time Spent with patient: 35 or more minutes Anticipated Discharge Disposition: Home with Home Health Anticipated Discharge Timeframe: within 24 hours
[2019-12-03] MEDS: INSULIN REG, HUMAN 100 UNIT/ML 3 ML VIAL (PYX) SUBCUT SCH ×3 (00:55→11:52)
[2019-12-03] MEDS: METOPROLOL TARTRATE PF/INJ 5 MG/5 ML SDV IV SCH ×5 (00:56→23:26)
[2019-12-03] MEDS: SCOPOLAMINE HYDROBROMIDE 1.5 MG PATCH.TD72 TD SCH (05:41)
[2019-12-03] MEDS: NORMAL SALINE 10 ML SDV (SCHEDULED) IV SCH ×2 (09:39→23:30)
[2019-12-03] MEDS: ENOXAPARIN SODIUM INJ 80 MG/0.8 ML DISP.SYRIN SUBCUT SCH ×2 (09:40→23:27)
[2019-12-03] MEDS: AMINO ACIDS 5 %/DEXTROSE 20 % 1,000 ML IV PRN (14:18)
--- NOTE | 2019-12-03 19:02 | PDOC PROGRESS REPORT ---
Subjective Progress Note for:: 12/03/19 Subjective:: NAEO Reason For Visit: G TUBE MALFUNCTION Physical Exam Vital Signs: Temp Pulse Resp BP Pulse Ox 98.2 F 61 19 111/82 95 12/03/19 16:28 12/03/19 16:28 12/03/19 16:28 12/03/19 16:28 12/03/19 16:28 Intake & Output 12/02/19 12/03/19 12/04/19 06:59 06:59 06:59 Intake Total 400 Balance 400 Weight 73.5 kg 73.5 kg General appearance: PRESENT: no acute distress Eye exam: ABSENT: scleral icterus Mouth exam: PRESENT: moist Neck exam: ABSENT: JVD Respiratory exam: PRESENT: clear to auscultation nancy, unlabored Cardiovascular exam: PRESENT: RRR GI/Abdominal exam: PRESENT: normal bowel sounds, soft, other - midline abdominal wall abscess cavity, packed Rectal exam: PRESENT: deferred Gentrourinary exam: ABSENT: indwelling catheter Extremities exam: ABSENT: pedal edema Neurological exam: PRESENT: altered, awake Psychiatric exam: PRESENT: flat affect Results Laboratory Results: 12/02/19 05:45 12/01/19 06:28 Impressions: Abdomen/Pelvis CT 11/24/19 00:00 IMPRESSION: There is a gas and fluid collection in the soft tissues over the left anterior abdominal wall adjacent to the G-tube tract consistent with area of pocket of extravasated contrast versus abscess. Hepatic cysts Cardiac enlargement Diverticulosis without evidence of diverticulitis. Tube Placement 11/24/19 12:00 IMPRESSION: Malpositioned G-tube. PICC Line Exchange 11/25/19 00:00 IMPRESSION: SUCCESSFUL PLACEMENT OF A 5 FR DUAL LUMEN 36 CM PICC IN THE LEFT BASILIC VEIN. KUB X-Ray 11/25/19 10:45 IMPRESSION: Nasoenteric tube tip overlies distal stomach/proximal duodenum. Assessment and Plan - Diagnosis (1) Cutaneous abscess of abdominal wall Is this a current diagnosis for this admission?: Yes (2) Dementia Qualifiers: Dementia type: vascular dementia Dementia behavioral disturbance: without behavioral disturbance Qualified Code(s): F01.50 - Vascular dementia without behavioral disturbance Is this a current diagnosis for this admission?: Yes (3) History of stroke Is this a current diagnosis for this admission?: Yes - Plan Summary Summary: ANGIE KEYES is an 89 year old female with PMH of advanced vascular dementia, CVA, atrial fibrillation on AC, dysarthria, dysphagia s/p G tube placement who presented to the ED on 11/24/2019 due to a dislodged G tube. Abdominal Wall Abscess/Cellulitis at site of prior G-tube: Patient has had the G tube for about 2 years and has been seen in the ED repeatedly and regularly with dislodged G tube. During her presentation on 11/23, due to concern for serosanguinous discharge around the G tube area, surgery was consulted, and she was found to have a large, deep subcutaneous abscess cavity located in the anterior upper abdominal wall with draining point at the old PEG site. She underwent I&D by Dr. Kapoor on 11/25/2019. Due to the location of the abscess, the G tube could not be replaced, so an NG tube was placed instead. Per Dr. Kapoor, she would need a different source of nutrition until the abscess heals, and then G tube placement can then be pursued. Unfortunately, Ms. Keyes pulled out her NG tube, and so Dr. Kapoor ordered a PICC line on 11/24 and she was started on TPN. She has completed 7 days of levaquin therapy for abdominal wall cellulitis/abscess. She is tolerating TPN at goal rate. Advanced, End-Stage Dementia: her son tells me that she spends the vast majority of her day asleep. She is bed-bound, unable to converse or eat. She has an exceedingly poor quality of life with no hope for improvement. I have discussed with her son that her disease is progressive, and is expected to continue to worsen. She has very poor overall prognosis, with or without a G-tube. She is an appropriate candidate for hospice, in which her son is not interested. - NPO due to high aspiration risk - mittens in place due to pulling at her IV Goals of Care: Several extensive goals of care conversations have been had with her son/POA. She remains full code. Ethics consult meeting occurred on 11/27. Family meeting was held on 11/30 with her son, RN, MIREILLE, Dr. Kapoor and myself. We discussed that two different surgeons and two different internists have all agreed that Ms. Keyes is a candidate for hospice, has an exceedingly poor prognosis and poor quality of life. Her son is still wanting to pursue all measures and remains hopeful that she will be able to have a G-tube replaced. We discussed that her healing will be slow and prolonged due to her advanced age and poor nutritional status, and may take many weeks, during which time she is at risk for developing further complications, such as bacteremia from TPN and PICC line. Atrial Fibrillation: rate controlled. She is on treatment dose Lovenox. HR remains in 60-70s. She has no acute indication for telemetry, discontinued. Dispo: she was discharged on 12/03/2019, but her son has appealed the discharge. We have arranged Home Health for ongoing TPN via PICC and wound care until her abdominal abscess heals. She can have a G-tube surgically replaced after her wound has healed, most likely in 2-4 weeks as outpatient. She is ready for discharge at this time. She is not an appropriate candidate for SNF or LTAC facilities, both of which have declined to accept this patient. - Time Time Spent with patient: 35 or more minutes Anticipated Discharge Disposition: Home with Home Health Anticipated Discharge Timeframe: within 48 hours
[2019-12-04] MEDS: METOPROLOL TARTRATE PF/INJ 5 MG/5 ML SDV IV SCH ×3 (05:07→18:04)
[2019-12-04] MEDS: AMINO ACIDS 5 %/DEXTROSE 20 % 1,000 ML IV PRN ×2 (06:42→23:50)
[2019-12-04] MEDS: ENOXAPARIN SODIUM INJ 80 MG/0.8 ML DISP.SYRIN SUBCUT SCH ×2 (09:21→18:07)
[2019-12-04] MEDS: NORMAL SALINE 10 ML SDV (SCHEDULED) IV SCH ×2 (09:21→21:40)
--- NOTE | 2019-12-04 16:01 | PDOC PROGRESS REPORT ---
Subjective Progress Note for:: 12/04/19 Subjective:: NAEO Reason For Visit: G TUBE MALFUNCTION Physical Exam Vital Signs: Temp Pulse Resp BP Pulse Ox 97.4 F 43 L 18 95/48 L 100 12/04/19 14:49 12/04/19 14:49 12/04/19 14:49 12/04/19 14:49 12/04/19 14:49 Intake & Output 12/03/19 12/04/19 12/05/19 06:59 06:59 06:59 Weight 73.5 kg 73.5 kg General appearance: PRESENT: no acute distress Eye exam: ABSENT: scleral icterus Mouth exam: PRESENT: moist Teeth exam: PRESENT: edentulous Throat exam: ABSENT: post pharyngeal erythema Neck exam: ABSENT: JVD Respiratory exam: PRESENT: clear to auscultation nancy, unlabored Cardiovascular exam: PRESENT: RRR GI/Abdominal exam: PRESENT: normal bowel sounds, soft, other - midline abdominal wall abscess cavity, packed, with no surrounding erythema Extremities exam: ABSENT: pedal edema Musculoskeletal exam: PRESENT: normal inspection Neurological exam: PRESENT: altered Psychiatric exam: PRESENT: flat affect Skin exam: ABSENT: rash Results Laboratory Results: 12/02/19 05:45 12/01/19 06:28 Impressions: Abdomen/Pelvis CT 11/24/19 00:00 IMPRESSION: There is a gas and fluid collection in the soft tissues over the left anterior abdominal wall adjacent to the G-tube tract consistent with area of pocket of extravasated contrast versus abscess. Hepatic cysts Cardiac enlargement Diverticulosis without evidence of diverticulitis. Tube Placement 11/24/19 12:00 IMPRESSION: Malpositioned G-tube. PICC Line Exchange 11/25/19 00:00 IMPRESSION: SUCCESSFUL PLACEMENT OF A 5 FR DUAL LUMEN 36 CM PICC IN THE LEFT BASILIC VEIN. KUB X-Ray 11/25/19 10:45 IMPRESSION: Nasoenteric tube tip overlies distal stomach/proximal duodenum. Assessment and Plan - Diagnosis (1) Cutaneous abscess of abdominal wall Is this a current diagnosis for this admission?: Yes (2) Dementia Qualifiers: Dementia type: vascular dementia Dementia behavioral disturbance: without behavioral disturbance Qualified Code(s): F01.50 - Vascular dementia without behavioral disturbance Is this a current diagnosis for this admission?: Yes (3) History of stroke Is this a current diagnosis for this admission?: Yes - Plan Summary Summary: ANGIE KEYES is an 89 year old female with PMH of advanced vascular dementia, CVA, atrial fibrillation on AC, dysarthria, dysphagia s/p G tube placement who presented to the ED on 11/24/2019 due to a dislodged G tube. Abdominal Wall Abscess/Cellulitis at site of prior G-tube: Patient has had the G tube for about 2 years and has been seen in the ED repeatedly and regularly with dislodged G tube. During her presentation on 11/23, due to concern for serosanguinous discharge around the G tube area, surgery was consulted, and she was found to have a large, deep subcutaneous abscess cavity located in the anterior upper abdominal wall with draining point at the old PEG site. She underwent I&D by Dr. Kapoor on 11/25/2019. Due to the location of the abscess, the G tube could not be replaced, so an NG tube was placed instead. Per Dr. Kapoor, she would need a different source of nutrition until the abscess heals, and then G tube placement can then be pursued. Unfortunately, Ms. Keyes pulled out her NG tube, and so Dr. Kapoor ordered a PICC line on 11/24 and she was started on TPN. She has completed 7 days of levaquin therapy for abdominal wall cellulitis/abscess. She is tolerating TPN at goal rate. Advanced, End-Stage Dementia: her son tells me that she spends the vast majority of her day asleep. She is bed-bound, unable to converse or eat. She has an exceedingly poor quality of life with no hope for improvement. I have discussed with her son that her disease is progressive, and is expected to continue to worsen. She has very poor overall prognosis, with or without a G-tube. She is an appropriate candidate for hospice, in which her son is not interested. - NPO due to high aspiration risk - mittens in place due to pulling at her IV Goals of Care: Several extensive goals of care conversations have been had with her son/POA. She remains full code. Ethics consult meeting occurred on 11/27. Family meeting was held on 11/30 with her son, RN, SW, Dr. Kapoor and myself. We discussed that two different surgeons and two different internists have all agreed that Ms. Keyes is a candidate for hospice, has an exceedingly poor prognosis and poor quality of life. Her son is still wanting to pursue all measures and remains hopeful that she will be able to have a G-tube replaced. We discussed that her healing will be slow and prolonged due to her advanced age and poor nutritional status, and may take many weeks, during which time she is at risk for developing further complications, such as bacteremia from TPN and PICC line. Atrial Fibrillation: rate controlled. She is on treatment dose Lovenox. HR remains in 60-70s. She has no acute indication for telemetry, discontinued. Dispo: she was discharged on 12/03/2019, but her son has appealed the discharge. We have arranged Home Health for ongoing TPN via PICC and wound care until her abdominal abscess heals. She can have a G-tube surgically replaced after her wound has healed, most likely in 2-4 weeks as outpatient. She is ready for discharge at this time. She is not an appropriate candidate for SNF or LTAC facilities, both of which have declined to accept this patient. - Time Time Spent with patient: 25-34 minutes Anticipated Discharge Disposition: Home with Home Health Anticipated Discharge Timeframe: within 24 hours
[2019-12-05] MEDS: ENOXAPARIN SODIUM INJ 80 MG/0.8 ML DISP.SYRIN SUBCUT SCH ×2 (05:52→18:40)
[2019-12-05] MEDS: NORMAL SALINE 10 ML SDV (AFTER EACH USE) IV PRN ×3 (05:53→23:22)
[2019-12-05 07:17] LABS: HEMATOCRIT 30.9 % (36.0-47.0); HEMOGLOBIN 10.5 g/dL (12.0-15.5); MEAN CORPUSCULAR HEMOGLOBIN 32.9 pg (27.0-33.4); MEAN CORPUSCULAR VOLUME 97 fl (80-97); PLATELET COUNT 209 10^3/uL (150-450); RED BLOOD COUNT 3.19 10^6/uL (3.72-5.28); RED CELL DISTRIBUTION WIDTH 13.9 % (11.5-14.0); WHITE BLOOD COUNT 4.3 10^3/uL (4.0-10.5)
[2019-12-05 08:37] LABS: ALBUMIN 3.1 g/dL (3.5-5.0); ALKALINE PHOSPHATASE 70 U/L (38-126); ANION GAP 8 (5-19); ASPARTATE AMINO TRANSFERASE 23 U/L (14-36); BILIRUBIN,DIRECT 0.3 mg/dL (0.0-0.4); BILIRUBIN,TOTAL 0.6 mg/dL (0.2-1.3); BLOOD UREA NITROGEN 18 mg/dL (7-20); CALCIUM 8.5 mg/dL (8.4-10.2); CARBON DIOXIDE 24 mmol/L (22-30); CHLORIDE 107 mmol/L (98-107); GLUCOSE 135 mg/dL (75-110); PHOSPHORUS 3.4 mg/dL (2.5-4.5); POTASSIUM 4.6 mmol/L (3.6-5.0); TOTAL PROTEIN 6.2 g/dL (6.3-8.2)
[2019-12-05 08:44] LABS: PREALBUMIN 13.8 mg/dL (17.6-36.0)
[2019-12-05] MEDS ORDERED: NORMAL SALINE 1000 ML 1,000 ML IV ONE (09:19)
[2019-12-05] MEDS: FAT EMULSIONS 250 ML IV SCH (11:12)
[2019-12-05] MEDS: NORMAL SALINE 10 ML SDV (SCHEDULED) IV SCH (11:14)
--- NOTE | 2019-12-05 14:01 | PDOC PROGRESS REPORT ---
Subjective Progress Note for:: 12/05/19 Subjective:: NAEO Reason For Visit: G TUBE MALFUNCTION Physical Exam Vital Signs: Temp Pulse Resp BP Pulse Ox 97.9 F 70 22 H 125/75 95 12/05/19 10:00 12/05/19 07:37 12/05/19 07:37 12/05/19 09:31 12/05/19 07:37 Intake & Output 12/04/19 12/05/19 12/06/19 06:59 06:59 06:59 Weight 73.5 kg 73.6 kg General appearance: PRESENT: no acute distress Head exam: PRESENT: normocephalic Eye exam: ABSENT: scleral icterus Mouth exam: PRESENT: moist Teeth exam: PRESENT: edentulous Throat exam: ABSENT: post pharyngeal erythema Neck exam: ABSENT: JVD Respiratory exam: PRESENT: clear to auscultation nancy, unlabored Cardiovascular exam: PRESENT: RRR GI/Abdominal exam: PRESENT: normal bowel sounds, soft, other - large abdominal wall wound, packed, without surrounding erythema/induration Rectal exam: ABSENT: deferred Extremities exam: ABSENT: pedal edema Musculoskeletal exam: PRESENT: normal inspection Neurological exam: PRESENT: altered Psychiatric exam: PRESENT: flat affect Skin exam: ABSENT: rash Results Laboratory Results: 12/05/19 05:55 12/05/19 05:55 12/05/19 12/05/19 05:55 05:55 WBC 4.3 RBC 3.19 L Hgb 10.5 L Hct 30.9 L MCV 97 MCH 32.9 MCHC 34.0 RDW 13.9 Plt Count 209 Sodium 138.8 Potassium 4.6 Chloride 107 Carbon Dioxide 24 Anion Gap 8 BUN 18 Creatinine 0.53 Est GFR ( Amer) > 60 Glucose 135 H Calcium 8.5 Phosphorus 3.4 Magnesium 2.2 Total Bilirubin 0.6 AST 23 Alkaline Phosphatase 70 Total Protein 6.2 L Albumin 3.1 L Prealbumin 13.8 L Impressions: Abdomen/Pelvis CT 11/24/19 00:00 IMPRESSION: There is a gas and fluid collection in the soft tissues over the left anterior abdominal wall adjacent to the G-tube tract consistent with area of pocket of extravasated contrast versus abscess. Hepatic cysts Cardiac enlargement Diverticulosis without evidence of diverticulitis. Tube Placement 11/24/19 12:00 IMPRESSION: Malpositioned G-tube. PICC Line Exchange 11/25/19 00:00 IMPRESSION: SUCCESSFUL PLACEMENT OF A 5 FR DUAL LUMEN 36 CM PICC IN THE LEFT BASILIC VEIN. KUB X-Ray 11/25/19 10:45 IMPRESSION: Nasoenteric tube tip overlies distal stomach/proximal duodenum. Assessment and Plan - Diagnosis (1) Cutaneous abscess of abdominal wall Is this a current diagnosis for this admission?: Yes (2) Dementia Qualifiers: Dementia type: vascular dementia Dementia behavioral disturbance: without behavioral disturbance Qualified Code(s): F01.50 - Vascular dementia without behavioral disturbance Is this a current diagnosis for this admission?: Yes (3) History of stroke Is this a current diagnosis for this admission?: Yes (4) Chronic anticoagulation Is this a current diagnosis for this admission?: Yes (5) Frail elderly Is this a current diagnosis for this admission?: Yes (6) On total parenteral nutrition (TPN) Is this a current diagnosis for this admission?: Yes (7) Malnutrition Qualifiers: Malnutrition type: protein-calorie malnutrition Protein-calorie malnutrition severity: moderate Qualified Code(s): E44.0 - Moderate protein- calorie malnutrition Is this a current diagnosis for this admission?: Yes (8) Atrial fibrillation Qualifiers: Atrial fibrillation type: paroxysmal Qualified Code(s): I48.0 - Paroxysmal atrial fibrillation Is this a current diagnosis for this admission?: Yes (9) PEG tube malfunction Is this a current diagnosis for this admission?: Yes - Plan Summary Summary: ANGIE KEYES is an 89 year old female with PMH of advanced vascular dementia, CVA, atrial fibrillation on AC, dysarthria, dysphagia s/p G tube placement who presented to the ED on 11/24/2019 due to a dislodged G tube. Abdominal Wall Abscess/Cellulitis at site of prior G-tube: Patient has had the G tube for about 2 years and has been seen in the ED repeatedly and regularly with dislodged G tube. During her presentation on 11/23, due to concern for serosanguinous discharge around the G tube area, surgery was consulted, and she was found to have a large, deep subcutaneous abscess cavity located in the anterior upper abdominal wall with draining point at the old PEG site. She underwent I&D by Dr. Kapoor on 11/25/2019. Due to the location of the abscess, the G tube could not be replaced, so an NG tube was placed instead. Per Dr. Kapoor, she would need a different source of nutrition until the abscess heals, and then G tube placement can then be pursued. Unfortunately, Ms. Keyes pulled out her NG tube, and so Dr. Kapoor ordered a PICC line on 11/24 and she was started on TPN. She has completed 7 days of levaquin therapy for abdominal wall cellulitis/abscess. She is tolerating TPN at goal rate. Advanced, End-Stage Dementia: her son tells me that she spends the vast majority of her day asleep. She is bed-bound, unable to converse or eat. She has an exceedingly poor quality of life with no hope for improvement. I have discussed with her son that her disease is progressive, and is expected to continue to worsen. She has very poor overall prognosis, with or without a G-tube. She is an appropriate candidate for hospice, in which her son is not interested. - NPO due to high aspiration risk - mittens in place due to pulling at her IV Goals of Care: Several extensive goals of care conversations have been had with her son/POA. She remains full code. Ethics consult meeting occurred on 11/27. Family meeting was held on 11/30 with her son, RN, MIREILLE, Dr. Kapoor and myself. We discussed that two different surgeons and two different internists have all agreed that Ms. Keyes is a candidate for hospice, has an exceedingly poor prognosis and poor quality of life. Her son is still wanting to pursue all measures and remains hopeful that she will be able to have a G-tube replaced. We discussed that her healing will be slow and prolonged due to her advanced age and poor nutritional status, and may take weeks to months, during which time she is at risk for developing further complications, such as bacteremia from TPN and PICC line. Atrial Fibrillation: rate controlled. She is on treatment dose Lovenox. HR remains in 60-70s. She has no acute indication for telemetry, discontinued. Dispo: she was discharged on 12/03/2019, but her son has appealed the discharge. We have arranged Home Health for ongoing TPN via PICC and wound care until her abdominal abscess heals. She can have a G-tube surgically replaced after her wound has healed. I suspect healing will be prolonged in this woman due to poor nutritional status, and she will likely be on TPN for at least 1-2 months (and possibly indefinitely) before her large abdominal wound heals completely and surgery is able to replace a G-tube. She is ready for discharge home with at this time. She is not an appropriate candidate for SNF or LTAC facilities, both of which have declined to accept this patient. - Time Time Spent with patient: 35 or more minutes Anticipated Discharge Disposition: Home with Home Health Anticipated Discharge Timeframe: within 24 hours
[2019-12-05] MEDS: AMINO ACIDS 5 %/DEXTROSE 20 % 1,000 ML IV PRN (16:37)
[2019-12-05] MEDS ORDERED: METOPROLOL TARTRATE PF/INJ 5 MG/5 ML SDV IV PRN (20:48)
[2019-12-05 23:40] LABS: HEMATOCRIT 31.4 % (36.0-47.0); HEMOGLOBIN 10.6 g/dL (12.0-15.5); MEAN CORPUSCULAR HEMOGLOBIN 32.4 pg (27.0-33.4); MEAN CORPUSCULAR HGB CONC 33.6 g/dL (32.0-36.0); MEAN CORPUSCULAR VOLUME 96 fl (80-97); PLATELET COUNT 230 10^3/uL (150-450); RED BLOOD COUNT 3.26 10^6/uL (3.72-5.28); RED CELL DISTRIBUTION WIDTH 14.4 % (11.5-14.0); WHITE BLOOD COUNT 5.4 10^3/uL (4.0-10.5)
[2019-12-06] MEDS: NORMAL SALINE 10 ML SDV (SCHEDULED) IV SCH ×3 (02:01→22:08)
[2019-12-06] MEDS: SCOPOLAMINE HYDROBROMIDE 1.5 MG PATCH.TD72 TD SCH (06:30)
[2019-12-06] MEDS: ENOXAPARIN SODIUM INJ 80 MG/0.8 ML DISP.SYRIN SUBCUT SCH ×2 (06:30→18:59)
[2019-12-06] MEDS: AMINO ACIDS 5 %/DEXTROSE 20 % 1,000 ML IV PRN (08:56)
--- NOTE | 2019-12-06 10:57 | PDOC PROGRESS REPORT ---
Subjective Progress Note for:: 12/06/19 Subjective:: Patient is resting in bed. She did awaken quite easily. She does not appear to be in any distress. Reason For Visit: G TUBE MALFUNCTION Physical Exam Vital Signs: Temp Pulse Resp BP Pulse Ox 98.0 F 64 16 113/48 L 97 12/06/19 04:09 12/06/19 04:09 12/06/19 04:09 12/06/19 04:09 12/06/19 04:09 Intake & Output 12/05/19 12/06/19 12/07/19 06:59 06:59 06:59 Intake Total 250 Balance 250 Weight 73.6 kg 72.3 kg General appearance: PRESENT: no acute distress, cooperative, well-developed Head exam: PRESENT: atraumatic, normocephalic Eye exam: PRESENT: conjunctiva pale. ABSENT: scleral icterus Ear exam: PRESENT: normal external ear exam. ABSENT: bleeding, drainage Neck exam: ABSENT: carotid bruit, JVD, lymphadenopathy, tracheostomy Respiratory exam: PRESENT: clear to auscultation nancy, symmetrical, unlabored. ABSENT: prolonged expiratory phas, rales, rhonchi, tachypnea, wheezes Cardiovascular exam: PRESENT: RRR, +S1, +S2. ABSENT: bradycardia, diastolic murmur, irregular rhythm, systolic murmur, tachycardia GI/Abdominal exam: PRESENT: normal bowel sounds, soft, tenderness - Near the surgical site, other - Abdominal binder in place. The edge of the abdominal dressing is seen under the edge of the binder.. ABSENT: guarding Rectal exam: PRESENT: deferred Gentrourinary exam: PRESENT: indwelling catheter Extremities exam: ABSENT: pedal edema Musculoskeletal exam: PRESENT: normal inspection. ABSENT: deformity, disloca tion Neurological exam: PRESENT: alert, awake, other - Unable to assess orientation due to the language barrier Psychiatric exam: PRESENT: appropriate affect. ABSENT: agitated, anxious Results Laboratory Results: 12/05/19 23:20 12/05/19 05:55 12/05/19 12/05/19 23:20 23:20 WBC 5.4 RBC 3.26 L Hgb 10.6 L Hct 31.4 L MCV 96 MCH 32.4 MCHC 33.6 RDW 14.4 H Plt Count 230 Triglycerides 83 Impressions: Abdomen/Pelvis CT 11/24/19 00:00 IMPRESSION: There is a gas and fluid collection in the soft tissues over the left anterior abdominal wall adjacent to the G-tube tract consistent with area of pocket of extravasated contrast versus abscess. Hepatic cysts Cardiac enlargement Diverticulosis without evidence of diverticulitis. Tube Placement 11/24/19 12:00 IMPRESSION: Malpositioned G-tube. PICC Line Exchange 11/25/19 00:00 IMPRESSION: SUCCESSFUL PLACEMENT OF A 5 FR DUAL LUMEN 36 CM PICC IN THE LEFT BASILIC VEIN. KUB X-Ray 11/25/19 10:45 IMPRESSION: Nasoenteric tube tip overlies distal stomach/proximal duodenum. Assessment and Plan - Diagnosis (1) Cutaneous abscess of abdominal wall Is this a current diagnosis for this admission?: Yes (2) Dementia Qualifiers: Dementia type: vascular dementia Dementia behavioral disturbance: without behavioral disturbance Qualified Code(s): F01.50 - Vascular dementia without behavioral disturbance Is this a current diagnosis for this admission?: Yes (3) History of stroke Is this a current diagnosis for this admission?: Yes (4) Longstanding persistent atrial fibrillation Is this a current diagnosis for this admission?: Yes (5) Chronic anticoagulation Is this a current diagnosis for this admission?: Yes (6) Malnutrition Qualifiers: Malnutrition type: protein-calorie malnutrition Protein-calorie malnutrition severity: moderate Qualified Code(s): E44.0 - Moderate protein- calorie malnutrition Is this a current diagnosis for this admission?: Yes (7) On total parenteral nutrition (TPN) Is this a current diagnosis for this admission?: Yes (8) Frail elderly Is this a current diagnosis for this admission?: Yes (9) PEG tube malfunction Is this a current diagnosis for this admission?: Yes - Plan Summary Summary: ANGIE KEYES is an 89 year old female with PMH of advanced vascular dementia, CVA, atrial fibrillation on AC, dysarthria, dysphagia s/p G tube placement who presented to the ED on 11/24/2019 due to a dislodged G tube. Abdominal Wall Abscess/Cellulitis at site of prior G-tube: Patient has had the G tube for about 2 years and has been seen in the ED repeatedly and regularly with dislodged G tube. During her presentation on 11/23, due to concern for serosanguinous discharge around the G tube area, surgery was consulted, and she was found to have a large, deep subcutaneous abscess cavity located in the anterior upper abdominal wall with draining point at the old PEG site. She underwent I&D by Dr. Kapoor on 11/25/2019. Due to the location of the abscess, the G tube could not be replaced, so an NG tube was placed instead. Per Dr. Kapoor, she would need a different source of nutrition until the abscess heals, and then G tube placement can then be pursued. Unfortunately, Ms. Keyes pulled out her NG tube, and so Dr. Kapoor ordered a PICC line on 11/24 and she was started on TPN. She has completed 7 days of levaquin therapy for abdominal wall cellulitis/abscess. She is tolerating TPN at goal rate. 12/06/2019 Replacement of a G-tube cannot be accomplished until there is complete healing of the abscess/cellulitis area. Multiple factors including her advanced age, low prealbumin and overall status suggest that this will take a long time. This can be at least 2 to 3 months. Advanced, End-Stage Dementia: her son tells me that she spends the vast majority of her day asleep. She is bed-bound, unable to converse or eat. She has an exceedingly poor quality of life with no hope for improvement. I have discussed with her son that her disease is progressive, and is expected to continue to worsen. She has very poor overall prognosis, with or without a G-tube. She is an appropriate candidate for hospice, in which her son is not interested. - NPO due to high aspiration risk - mittens in place due to pulling at her IV 12/06/2019 Still requiring restraints at times. This morning she appears to be resting comfortably. Malnutrition: The patient is currently receiving TPN to achieve nutritional goals. The patient will need at least 3 months of TPN. It is inappropriate to utilize a nasogastric tube for supplemental nutrition over this length of time. In addition if there is going to be surgical replacement of her G-tube it required her to be significantly improved from a metabolic standpoint and the healing of the current abscess area/abdominal wall cellulitis is going to take at least 2 to 3 months as noted above. Goals of Care: Several extensive goals of care conversations have been had with her son/POA. She remains full code. Ethics consult meeting occurred on 11/27. Family meeting was held on 11/30 with her son, RN, SW, Dr. Kapoor and myself. We discussed that two different surgeons and two different internists have all agreed that Ms. Keyes is a candidate for hospice, has an exceedingly poor prognosis and poor quality of life. Her son is still wanting to pursue all measures and remains hopeful that she will be able to have a G-tube replaced. We discussed that her healing will be slow and prolonged due to her advanced age an d poor nutritional status, and may take weeks to months, during which time she is at risk for developing further complications, such as bacteremia from TPN and PICC line. Atrial Fibrillation: rate controlled. She is on treatment dose Lovenox. HR rem ains in 60-70s. She has no acute indication for telemetry, discontinued. We will continue to monitor on telemetry. Dispo: she was discharged on 12/03/2019, but her son has appealed the discharge. We have arranged Home Health for ongoing TPN via PICC and wound care until her abdominal abscess heals. She can have a G-tube surgically replaced after her wound has healed. I suspect healing will be prolonged in this woman due to poor nutritional status, and she will likely be on TPN for at least 1-2 months (and possibly indefinitely) before her large abdominal wound heals completely and surgery is able to replace a G-tube. She is ready for discharge home with at this time. She is not an appropriate candidate for SNF or LTAC facilities, both of which have declined to accept this patient. 12/06/2019: Heel is pending. We will continue current treatment regimen. Patient will need at least 3 months of TPN. Evidently the patient's son has hired private duty help. Her overall condition will need to be greatly improved if she is to even be considered for an additional surgical procedure. - Time Time Spent with patient: 15-24 minutes Medications reviewed and adjusted accordingly: Yes Anticipated Discharge Disposition: Home with Home Health Anticipated Discharge Timeframe: Pending appeal
[2019-12-07] MEDS: AMINO ACIDS 5 %/DEXTROSE 20 % 1,000 ML IV PRN ×2 (02:00→18:45)
[2019-12-07] MEDS: ENOXAPARIN SODIUM INJ 80 MG/0.8 ML DISP.SYRIN SUBCUT SCH ×2 (05:47→18:28)
[2019-12-07 06:52] LABS: HEMATOCRIT 32.4 % (36.0-47.0); HEMOGLOBIN 11.2 g/dL (12.0-15.5); MEAN CORPUSCULAR HEMOGLOBIN 33.4 pg (27.0-33.4); MEAN CORPUSCULAR HGB CONC 34.5 g/dL (32.0-36.0); MEAN CORPUSCULAR VOLUME 97 fl (80-97); PLATELET COUNT 234 10^3/uL (150-450); RED BLOOD COUNT 3.35 10^6/uL (3.72-5.28); RED CELL DISTRIBUTION WIDTH 14.2 % (11.5-14.0); WHITE BLOOD COUNT 5.5 10^3/uL (4.0-10.5)
[2019-12-07] MEDS: NORMAL SALINE 10 ML SDV (SCHEDULED) IV SCH ×2 (10:26→21:00)
--- NOTE | 2019-12-07 11:45 | PDOC PROGRESS REPORT ---
Subjective Progress Note for:: 12/07/19 Subjective:: Patient resting comfortably. Nursing reports no new complaints. Patient does open her eyes briefly to verbal stimulus. Reason For Visit: G TUBE MALFUNCTION Physical Exam Vital Signs: Temp Pulse Resp BP Pulse Ox 98.9 F 76 19 110/89 H 98 12/07/19 07:40 12/07/19 07:40 12/07/19 07:40 12/07/19 07:40 12/07/19 08:42 Intake & Output 12/06/19 12/07/19 12/08/19 06:59 06:59 06:59 Intake Total 250 Balance 250 Weight 72.3 kg 72.5 kg General appearance: PRESENT: no acute distress, thin - Extremely frail and ill- appearing 89-year-old female resting in bed., other - Still with soft restraints to avoid patient pulling out IV or dislodging abdominal binder. Head exam: PRESENT: atraumatic, normocephalic Eye exam: PRESENT: other - Sunken eye sockets Ear exam: PRESENT: normal external ear exam. ABSENT: bleeding, drainage Respiratory exam: PRESENT: clear to auscultation nancy - Anteriorly, symmetrical, unlabored. ABSENT: rales, rhonchi, tachypnea, wheezes Cardiovascular exam: PRESENT: RRR, +S1, +S2. ABSENT: bradycardia, diastolic murmur, irregular rhythm, systolic murmur, tachycardia GI/Abdominal exam: PRESENT: normal bowel sounds, soft, other - Abdominal binder in place. ABSENT: distended, guarding Rectal exam: PRESENT: deferred Gentrourinary exam: PRESENT: indwelling catheter Extremities exam: ABSENT: pedal edema Musculoskeletal exam: PRESENT: normal inspection Neurological exam: PRESENT: awake, oriented to person - She does respond to her name.. ABSENT: alert - Not very alert. Does open eyes to verbal stimulus. She did smile and attempt to say hello today. Psychiatric exam: PRESENT: flat affect. ABSENT: agitated, anxious Skin exam: PRESENT: dry, pallor, warm. ABSENT: rash Results Laboratory Results: 12/07/19 06:10 12/05/19 05:55 12/07/19 06:10 WBC 5.5 RBC 3.35 L Hgb 11.2 L Hct 32.4 L MCV 97 MCH 33.4 MCHC 34.5 RDW 14.2 H Plt Count 234 Impressions: Abdomen/Pelvis CT 11/24/19 00:00 IMPRESSION: There is a gas and fluid collection in the soft tissues over the left anterior abdominal wall adjacent to the G-tube tract consistent with area of pocket of extravasated contrast versus abscess. Hepatic cysts Cardiac enlargement Diverticulosis without evidence of diverticulitis. Tube Placement 11/24/19 12:00 IMPRESSION: Malpositioned G-tube. PICC Line Exchange 11/25/19 00:00 IMPRESSION: SUCCESSFUL PLACEMENT OF A 5 FR DUAL LUMEN 36 CM PICC IN THE LEFT BASILIC VEIN. KUB X-Ray 11/25/19 10:45 IMPRESSION: Nasoenteric tube tip overlies distal stomach/proximal duodenum. Assessment and Plan - Diagnosis (1) Cutaneous abscess of abdominal wall Is this a current diagnosis for this admission?: Yes Plan: - on G tube site - culture growing E.coli, klebsiella sensitive to levaquin - on levaquin. she is allergic to penicillin 12/07/2019-the nurse had just change the dressing this morning. I did not take the dressing down. She states that the wound has good granulation tissue at the base. It appears to be getting smaller. Once there is complete healing they can consider a new G-tube. They would need to find a surgeon or airplane refueler to place this. (2) Dementia Qualifiers: Dementia type: vascular dementia Dementia behavioral disturbance: without behavioral disturbance Qualified Code(s): F01.50 - Vascular dementia without behavioral disturbance Is this a current diagnosis for this admission?: Yes Plan: - bedboudn with dementia -12/07/2019-patient is bedbound with severe dementia. No previous home medications listed. It is unknown if she has been seen by someone to specifically assess the dementia and to see if medication intervention is appropriate. No change in treatment at this time. (3) History of stroke Is this a current diagnosis for this admission?: Yes Plan: - 2 years ago. G tube placed then for feeding - will ask speech therapist to do a formal swallow eval to see if she can be fed by mouth. - not on aspirin or statin 12/07/2019-currently n.p.o. getting TPN. Consider resuming aspirin and statin therapy if PEG tube or nasogastric tube is put in place. (4) Longstanding persistent atrial fibrillation Is this a current diagnosis for this admission?: Yes Plan: 12/07/2019-by auscultation the patient appears to be in sinus rhythm. Rate is normal and no rate control medications are required. Continue to monitor vital signs. (5) Chronic anticoagulation Is this a current diagnosis for this admission?: Yes Plan: 12/07/2019-currently on therapeutic dose Lovenox as she is n.p.o. (6) Malnutrition Qualifiers: Malnutrition type: protein-calorie malnutrition Protein-calorie malnutrition severity: moderate Qualified Code(s): E44.0 - Moderate protein- calorie malnutrition Is this a current diagnosis for this admission?: Yes Plan: 12/07/2019-receiving TPN. Initial request for TPN to home infusion therapy was declined. Case management is soliciting other vendors. (7) On total parenteral nutrition (TPN) Is this a current diagnosis for this admission?: Yes Plan: 12/07/2019-Will need outpatient provider to follow patient. Will need routine monitoring labs as well. (8) Frail elderly Is this a current diagnosis for this admission?: Yes Plan: 12/07/2019-extremely frail patient who is bedbound with severe dementia. Prognosis for any meaningful recovery is grim. The patient son has been approached about a less aggressive care plan. He insists on moving forward and this includes TPN until her abdomen heals and pursuing another PEG tube. (9) PEG tube malfunction Is this a current diagnosis for this admission?: Yes Plan: 12/07/2019-due to infection PEG tube removed. Currently n.p.o. - Plan Summary Summary: ANGIE KEYES is an 89 year old female with PMH of advanced vascular dementia, CVA, atrial fibrillation on AC, dysarthria, dysphagia s/p G tube placement who presented to the ED on 11/24/2019 due to a dislodged G tube. Abdominal Wall Abscess/Cellulitis at site of prior G-tube: Patient has had the G tube for about 2 years and has been seen in the ED repeatedly and regularly with dislodged G tube. During her presentation on 11/23, due to concern for serosanguinous discharge around the G tube area, surgery was consulted, and she was found to have a large, deep subcutaneous abscess cavity located in the anterior upper abdominal wall with draining point at the old PEG site. She underwent I&D by Dr. Kapoor on 11/25/2019. Due to the location of the abscess, the G tube could not be replaced, so an NG tube was placed instead. Per Dr. Kapoor, she would need a different source of nutrition until the abscess heals, and then G tube placement can then be pursued. Unfortunately, Ms. Keyes pulled out her NG tube, and so Dr. Kapoor ordered a PICC line on 11/24 and she was sta rted on TPN. She has completed 7 days of levaquin therapy for abdominal wall cellulitis/abscess. She is tolerating TPN at goal rate. 12/06/2019 Replacement of a G-tube cannot be accomplished until there is complete healing of the abscess/cellulitis area. Multiple factors including her advanced age, low prealbumin and overall status suggest that this will take a long time. This can be at least 2 to 3 months. Advanced, End-Stage Dementia: her son tells me that she spends the vast majority of her day asleep. She is bed-bound, unable to converse or eat. She has an excee dingly poor quality of life with no hope for improvement. I have discussed with her son that her disease is progressive, and is expected to continue to worsen. She has very poor overall prognosis, with or without a G-tube. She is an appropriate candidate for hospice, in which her son is not interested. - NPO due to high aspiration risk - mittens in place due to pulling at her IV 12/06/2019 Still requiring restraints at times. This morning she appears to be resting comfortably. Malnutrition: The patient is currently receiving TPN to achieve nutritional goals. The patient will need at least 3 months of TPN. It is inappropriate to utilize a nasogastric tube for supplemental nutrition over this length of time. In addition if there is going to be surgical replacement of her G-tube it required her to be significantly improved from a metabolic standpoint and the h ealing of the current abscess area/abdominal wall cellulitis is going to take at least 2 to 3 months as noted above. Goals of Care: Several extensive goals of care conversations have been had with her son/POA. She remains full code. Ethics consult meeting occurred on 11/27. Family meeting was held on 11/30 with her son, RN, SW, Dr. Kapoor and myself. We discussed that two different surgeons and two different internists have all agreed that Ms. Keyes is a candidate for hospice, has an exceedingly poor prognosis and poor quality of life. Her son is still wanting to pursue all measures and remains hopeful that she will be able to have a G-tube replaced. We discussed that her healing will be slow and prolonged due to her advanced age and poor nutritional status, and may take weeks to months, during which time she is at risk for developing further complications, such as bacteremia from TPN and PICC line. Atrial Fibrillation: rate controlled. She is on treatment dose Lovenox. HR remains in 60-70s. She has no acute indication for telemetry, discontinued. We will continue to monitor on telemetry. Dispo: she was discharged on 12/03/2019, but her son has appealed the discharge. We have arranged Home Health for ongoing TPN via PICC and wound care until her abdominal abscess heals. She can have a G-tube surgically replaced after her wound has healed. I suspect healing will be prolonged in this woman due to poor nutritional status, and she will likely be on TPN for at least 1-2 months (and possibly indefinitely) before her large abdominal wound heals completely and surgery is able to replace a G-tube. She is ready for discharge home with at this time. She is not an appropriate candidate for SNF or LTAC facilities, both of which have declined to accept this patient. 12/06/2019: Heel is pending. We will continue current treatment regimen. Patient will need at least 3 months of TPN. Evidently the patient's son has hired private duty help. Her overall condition will need to be greatly improved if she is to even be considered for an additional surgical procedure. - Time Time Spent with patient: 15-24 minutes Medications reviewed and adjusted accordingly: Yes Anticipated Discharge Disposition: Home, Self Care - The patient son insists on the patient coming home. He states that he has hired private duty nursing to help care for the patient at home. Anticipated Discharge Timeframe: Unknown
[2019-12-08] MEDS: ENOXAPARIN SODIUM INJ 80 MG/0.8 ML DISP.SYRIN SUBCUT SCH ×2 (05:54→18:28)
[2019-12-08 07:30] LABS: ALBUMIN 3.2 g/dL (3.5-5.0); ALKALINE PHOSPHATASE 69 U/L (38-126); ANION GAP 7 (5-19); ASPARTATE AMINO TRANSFERASE 34 U/L (14-36); BILIRUBIN,DIRECT 0.3 mg/dL (0.0-0.4); BILIRUBIN,TOTAL 0.5 mg/dL (0.2-1.3); BLOOD UREA NITROGEN 19 mg/dL (7-20); CALCIUM 8.7 mg/dL (8.4-10.2); CARBON DIOXIDE 25 mmol/L (22-30); CHLORIDE 107 mmol/L (98-107); GLUCOSE 106 mg/dL (75-110); PHOSPHORUS 3.5 mg/dL (2.5-4.5); POTASSIUM 4.7 mmol/L (3.6-5.0); TOTAL PROTEIN 6.5 g/dL (6.3-8.2)
[2019-12-08 07:37] LABS: PREALBUMIN 18.1 mg/dL (17.6-36.0)
[2019-12-08] MEDS: FAT EMULSIONS 250 ML IV SCH (10:27)
[2019-12-08] MEDS: AMINO ACIDS 5 %/DEXTROSE 20 % 1,000 ML IV PRN (10:31)
[2019-12-08] MEDS: NORMAL SALINE 10 ML SDV (SCHEDULED) IV SCH ×2 (10:45→21:31)
--- NOTE | 2019-12-08 14:19 | PDOC PROGRESS REPORT ---
Subjective Progress Note for:: 12/08/19 Subjective:: Coarse breath sounds today. Nursing reports that the patient has been sleeping all day. Oxygen saturation on room air is very good and serum chemistries have been normal. Reason For Visit: G TUBE MALFUNCTION Abscess at PEG tube site Surgical wound on the abdomen Dementia Physical Exam Vital Signs: Temp Pulse Resp BP Pulse Ox 98.4 F 74 23 H 105/43 L 100 12/08/19 12:07 12/08/19 12:07 12/08/19 12:07 12/08/19 12:07 12/08/19 12:07 Intake & Output 12/07/19 12/08/19 12/09/19 06:59 06:59 06:59 Weight 72.5 kg 72.5 kg General appearance: PRESENT: no acute distress Head exam: PRESENT: atraumatic, normocephalic Ear exam: PRESENT: normal external ear exam. ABSENT: bleeding, drainage Respiratory exam: PRESENT: rhonchi - Coarse breath sounds/rhonchi on the right, symmetrical. ABSENT: rales, tachypnea, wheezes Cardiovascular exam: PRESENT: RRR, +S1, +S2 GI/Abdominal exam: PRESENT: normal bowel sounds, soft, tenderness - Near the surgical site, other - Abdominal binder in place. ABSENT: distended, guarding Rectal exam: PRESENT: deferred Gentrourinary exam: PRESENT: indwelling catheter Neurological exam: ABSENT: awake Skin exam: PRESENT: pallor Results Laboratory Results: 12/07/19 06:10 12/08/19 05:44 12/08/19 05:44 Sodium 138.5 Potassium 4.7 Chloride 107 Carbon Dioxide 25 Anion Gap 7 BUN 19 Creatinine 0.51 L Est GFR ( Amer) > 60 Glucose 106 Calcium 8.7 Phosphorus 3.5 Total Bilirubin 0.5 AST 34 Alkaline Phosphatase 69 Total Protein 6.5 Albumin 3.2 L Prealbumin 18.1 Impressions: Abdomen/Pelvis CT 11/24/19 00:00 IMPRESSION: There is a gas and fluid collection in the soft tissues over the left anterior abdominal wall adjacent to the G-tube tract consistent with area of pocket of extravasated contrast versus abscess. Hepatic cysts Cardiac enlargement Diverticulosis without evidence of diverticulitis. Tube Placement 11/24/19 12:00 IMPRESSION: Malpositioned G-tube. PICC Line Exchange 11/25/19 00:00 IMPRESSION: SUCCESSFUL PLACEMENT OF A 5 FR DUAL LUMEN 36 CM PICC IN THE LEFT BASILIC VEIN. KUB X-Ray 11/25/19 10:45 IMPRESSION: Nasoenteric tube tip overlies distal stomach/proximal duodenum. Assessment and Plan - Diagnosis (1) Cutaneous abscess of abdominal wall Is this a current diagnosis for this admission?: Yes Plan: - on G tube site - culture growing E.coli, klebsiella sensitive to levaquin - on levaquin. she is allergic to penicillin 12/07/2019-the nurse had just change the dressing this morning. I did not take the dressing down. She states that the wound has good granulation tissue at the base. It appears to be getting smaller. Once there is complete healing they can consider a new G-tube. They would need to find a surgeon or administration manager to place this. 12/08/2019-the wound care orders from surgery are moist saline dressings changed twice daily. Abdominal binder to prevent patient from dislodging dressings. She completed a full course of antibiotics. Her infection appears to be resolved. Complete healing of the abdominal wound would need to take place before having another procedure to place a percutaneous device. In my experience older patients take much longer to heal. Maximizing nutrition will certainly help the healing. I would expect complete healing of this lesion in 8 to 10 weeks. The patient will then need to be evaluated by surgery for consideration of placement of either another PEG tube or possible jejunostomy tube. Due to the expectation of a protracted length of time for resolution of the wound a Dobbhoff or nasogastric tube would be contraindicated. There would be high risk of mucosal irritation or ulceration. (2) On total parenteral nutrition (TPN) Is this a current diagnosis for this admission?: Yes Plan: 12/07/2019-Will need outpatient provider to follow patient. Will need routine monitoring labs as well. 12/08/2019-the patient is tolerating her TPN without difficulty. Laboratory studies appear stable. She has lost approximately 5% of her total body weight just in the 2 weeks that she has been hospitalized. Without dependable nutrition she could easily continue to lose weight. Potential losses could exceed 10 to 15% of total body weight. This would also negatively impact healing of her wound and this could potentially lead to reinfection. (3) Malnutrition Qualifiers: Malnutrition type: protein-calorie malnutrition Protein-calorie malnutrition severity: moderate Qualified Code(s): E44.0 - Moderate protein- calorie malnutrition Is this a current diagnosis for this admission?: Yes Plan: 12/07/2019-receiving TPN. Initial request for TPN to home infusion therapy was declined. Case management is soliciting other vendors. 12/08/2019-ongoing TPN. Patient has experienced a 5% weight loss since admission. She has been on TPN and this should reverse the weight loss trend. Without TPN I would expect a minimum of 10 to 15% weight loss which would adversely affect healing. Initially her albumin was normal at 4.1 but I believe that IV fluids given early in the hospitalization diluted her albumin level down to what is realistically her baseline. Her total protein and hemoglobin in fact dropped in a similar fashion. I believe the levels that she is at now are her true baseline levels. In addition to lipid, protein and electrolyte imbalance the patient would benefit from a multivitamin with minerals. This will help support wound healing as well as helping with anemia. (4) Dementia Qualifiers: Dementia type: vascular dementia Dementia behavioral disturbance: without behavioral disturbance Qualified Code(s): F01.50 - Vascular dementia without behavioral disturbance Is this a current diagnosis for this admission?: Yes Plan: - bedboudn with dementia -12/07/2019-patient is bedbound with severe dementia. No previous home medications listed. It is unknown if she has been seen by someone to specifically assess the dementia and to see if medication intervention is appropriate. No change in treatment at this time. 12/08/2019-chronic. The patient son is the primary caregiver at home. (5) History of stroke Is this a current diagnosis for this admission?: Yes Plan: - 2 years ago. G tube placed then for feeding - will ask speech therapist to do a formal swallow eval to see if she can be fed by mouth. - not on aspirin or statin 12/07/2019-currently n.p.o. getting TPN. Consider resuming aspirin and statin therapy if PEG tube or nasogastric tube is put in place. 12/08/2019-dysphagia without safe swallow as a late effect of stroke. Continue TPN at this time. (6) Longstanding persistent atrial fibrillation Is this a current diagnosis for this admission?: Yes Plan: 12/07/2019-by auscultation the patient appears to be in sinus rhythm. Rate is normal and no rate control medications are required. Continue to monitor vital signs. 12/08/2019-stable. No change in treatment plan (7) Chronic anticoagulation Is this a current diagnosis for this admission?: Yes Plan: 12/07/2019-currently on therapeutic dose Lovenox as she is n.p.o. (8) Frail elderly Is this a current diagnosis for this admission?: Yes Plan: 12/07/2019-extremely frail patient who is bedbound with severe dementia. Prognosis for any meaningful recovery is grim. The patient son has been approached about a less aggressive care plan. He insists on moving forward and this includes TPN until her abdomen heals and pursuing another PEG tube. (9) PEG tube malfunction Is this a current diagnosis for this admission?: Yes Plan: As above - Plan Summary Summary: ANGIE KEYES is an 89 year old female with PMH of advanced vascular dementia, CVA, atrial fibrillation on AC, dysarthria, dysphagia s/p G tube placement who presented to the ED on 11/24/2019 due to a dislodged G tube. Abdominal Wall Abscess/Cellulitis at site of prior G-tube: Patient has had the G tube for about 2 years and has been seen in the ED repeatedly and regularly with dislodged G tube. During her presentation on 11/23, due to concern for serosanguinous discharge around the G tube area, surgery was consulted, and she was found to have a large, deep subcutaneous abscess cavity located in the anterior upper abdominal wall with draining point at the old PEG site. She underwent I&D by Dr. Kapoor on 11/25/2019. Due to the location of the abscess, the G tube could not be replaced, so an NG tube was placed instead. Per Dr. Kapoor, she would need a different source of nutrition until the abscess heals, and then G tube placement can then be pursued. Unfortunately, Ms. Keyes pulled out her NG tube, and so Dr. Kapoor ordered a PICC line on 11/24 and she was started on TPN. She has completed 7 days of levaquin therapy for abdominal wall cellulitis/abscess. She is tolerating TPN at goal rate. 12/06/2019 Replacement of a G-tube cannot be accomplished until there is complete healing of the abscess/cellulitis area. Multiple factors including her advanced age, low prealbumin and overall status suggest that this will take a long time. This can be at least 2 to 3 months. Advanced, End-Stage Dementia: her son tells me that she spends the vast majority of her day asleep. She is bed-bound, unable to converse or eat. She has an exceedingly poor quality of life with no hope for improvement. I have discussed with her son that her disease is progressive, and is expected to continue to worsen. She has very poor overall prognosis, with or without a G-tube. She is an appropriate candidate for hospice, in which her son is not interested. - NPO due to high aspiration risk - mittens in place due to pulling at her IV 12/06/2019 Still requiring restraints at times. This morning she appears to be resting comfortably. Malnutrition: The patient is currently receiving TPN to achieve nutritional goals. The patient will need at least 3 months of TPN. It is inappropriate to utilize a nasogastric tube for supplemental nutrition over this length of time. In addition if there is going to be surgical replacement of her G-tube it required her to be significantly improved from a metabolic standpoint and the healing of the current abscess area/abdominal wall cellulitis is going to take at least 2 to 3 months as noted above. Goals of Care: Several extensive goals of care conversations have been had with her son/POA. She remains full code. Ethics consult meeting occurred on 11/27. Family meeting was held on 11/30 with her son, RN, MIREILLE, Dr. Kapoor and myself. We discussed that two different surgeons and two different internists have all agreed that Ms. Keyes is a candidate for hospice, has an exceedingly poor prognosis and poor quality of life. Her son is still wanting to pursue all measures and remains hopeful that she will be able to have a G-tube replaced. We discussed that her healing will be slow and prolonged due to her advanced age and poor nutritional status, and may take weeks to months, during which time she is at risk for developing further complications, such as bacteremia from TPN and PICC line. Atrial Fibrillation: rate controlled. She is on treatment dose Lovenox. HR remains in 60-70s. She has no acute indication for telemetry, discontinued. We will continue to monitor on telemetry. Dispo: she was discharged on 12/03/2019, but her son has appealed the discharge. We have arranged Home Health for ongoing TPN via PICC and wound care until her abdominal abscess heals. She can have a G-tube surgically replaced after her wound has healed. I suspect healing will be prolonged in this woman due to poor nutritional status, and she will likely be on TPN for at least 1-2 months (and possibly indefinitely) before her large abdominal wound heals completely and surgery is able to replace a G-tube. She is ready for discharge home with at this time. She is not an appropriate candidate for SNF or LTAC facilities, both of which have declined to accept this patient. 12/06/2019: Heel is pending. We will continue current treatment regimen. Patient will need at least 3 months of TPN. Evidently the patient's son has hired private duty help. Her overall condition will need to be greatly improved if she is to even be considered for an additional surgical procedure. - Time Time Spent with patient: 15-24 minutes Medications reviewed and adjusted accordingly: Yes Anticipated Discharge Disposition: Home with Home Health Anticipated Discharge Timeframe: within 72 hours
--- NOTE | 2019-12-08 15:14 | RADIOLOGY REPORT (SQ) ---
EXAM DESCRIPTION: CHEST SINGLE VIEW IMAGES COMPLETED DATE/TIME: 12/08/2019 2:49 pm REASON FOR STUDY: Increased rhonchi COMPARISON: 11/27/2019. EXAM PARAMETERS: NUMBER OF VIEWS: One view. TECHNIQUE: Single frontal radiographic view of the chest acquired. RADIATION DOSE: NA LIMITATIONS: None. FINDINGS: LUNGS AND PLEURA: Chronic interstitial changes. Faint retrocardiac density. No masses or pneumothorax. No pleural effusion. MEDIASTINUM AND HILAR STRUCTURES: No masses. Contour normal. HEART AND VASCULAR STRUCTURES: Heart upper limits of normal in size. Normal vasculature. BONES: No acute findings. HARDWARE: PICC line. OTHER: No other significant finding. IMPRESSION: CHRONIC INTERSTITIAL CHANGES. BORDERLINE CARDIOMEGALY. FAINT RETROCARDIAC DENSITY WHIC H COULD BE DUE TO ATELECTASIS VERSUS INFILTRATE. TECHNICAL DOCUMENTATION: JOB ID: [id number] 2010 [employer]- All Rights Reserved Reading location - IP/workstation name: [email or web address]
[2019-12-08 15:15] LABS: ABSOLUTE EOSINOPHILS # (AUTO) 0.2 10^3/uL (0.0-0.6); ABSOLUTE LYMPHOCYTES (AUTO) 1.8 10^3/uL (0.5-4.7); ABSOLUTE MONOCYTES (AUTO) 0.5 10^3/uL (0.1-1.4); ABSOLUTE NEUT (AUTO) 2.1 10^3/uL (1.7-8.2); BASOPHILS % (AUTO) 0.6 % (0-2); EOSINOPHILS % (AUTO) 4.4 % (0-6); HEMATOCRIT 32.1 % (36.0-47.0); HEMOGLOBIN 11.1 g/dL (12.0-15.5); LYMPHOCYTES % (AUTO) 39.2 % (13-45); MEAN CORPUSCULAR HEMOGLOBIN 33.5 pg (27.0-33.4); MEAN CORPUSCULAR HGB CONC 34.6 g/dL (32.0-36.0); MEAN CORPUSCULAR VOLUME 97 fl (80-97); MONOCYTES % (AUTO) 11.2 % (3-13); PLATELET COUNT 241 10^3/uL (150-450); RED BLOOD COUNT 3.32 10^6/uL (3.72-5.28); RED CELL DISTRIBUTION WIDTH 14.2 % (11.5-14.0); SEGMENTED NEUTROPHILS % (AUTO) 44.6 % (42-78); TOTAL CELLS COUNTED % (AUTO) 100 %; WHITE BLOOD COUNT 4.7 10^3/uL (4.0-10.5)
[2019-12-09] MEDS: AMINO ACIDS 5 %/DEXTROSE 20 % 1,000 ML IV PRN ×2 (03:57→19:30)
[2019-12-09] MEDS: ENOXAPARIN SODIUM INJ 80 MG/0.8 ML DISP.SYRIN SUBCUT SCH ×2 (05:09→18:23)
[2019-12-09] MEDS: SCOPOLAMINE HYDROBROMIDE 1.5 MG PATCH.TD72 TD SCH (05:10)
[2019-12-09 07:02] LABS: HEMATOCRIT 30.4 % (36.0-47.0); HEMOGLOBIN 10.2 g/dL (12.0-15.5); MEAN CORPUSCULAR HEMOGLOBIN 32.6 pg (27.0-33.4); MEAN CORPUSCULAR HGB CONC 33.5 g/dL (32.0-36.0); MEAN CORPUSCULAR VOLUME 98 fl (80-97); PLATELET COUNT 220 10^3/uL (150-450); RED BLOOD COUNT 3.12 10^6/uL (3.72-5.28); RED CELL DISTRIBUTION WIDTH 14.2 % (11.5-14.0); WHITE BLOOD COUNT 4.7 10^3/uL (4.0-10.5)
[2019-12-09] MEDS: NORMAL SALINE 10 ML SDV (SCHEDULED) IV SCH ×2 (09:53→22:06)
--- NOTE | 2019-12-09 14:16 | PDOC PROGRESS REPORT ---
Subjective Progress Note for:: 12/09/19 Subjective:: The patient actually open her eyes today. She smiled. Nursing said that she is less sleepy than yesterday. Reason For Visit: G TUBE MALFUNCTION Physical Exam Vital Signs: Temp Pulse Resp BP Pulse Ox 98.6 F 68 22 H 91/40 L 97 12/09/19 11:51 12/09/19 11:51 12/09/19 11:51 12/09/19 11:51 12/09/19 11:51 Intake & Output 12/08/19 12/09/19 12/10/19 06:59 06:59 06:59 Intake Total 250 Balance 250 Weight 72.5 kg 74.8 kg General appearance: PRESENT: no acute distress, well-developed. ABSENT: disheveled, morbidly obese Head exam: PRESENT: atraumatic, normocephalic Eye exam: PRESENT: conjunctiva pale, other - Temporal wasting, sunken eye sockets. ABSENT: scleral icterus Ear exam: PRESENT: normal external ear exam. ABSENT: bleeding, drainage Respiratory exam: PRESENT: clear to auscultation nancy - Anteriorly, symmetrical, unlabored. ABSENT: rales, rhonchi, tachypnea, wheezes Cardiovascular exam: PRESENT: RRR, +S1, +S2. ABSENT: bradycardia, diastolic murmur, irregular rhythm, systolic murmur, tachycardia GI/Abdominal exam: PRESENT: normal bowel sounds, soft, other - Abdominal binder in place. ABSENT: distended, guarding Rectal exam: PRESENT: deferred Gentrourinary exam: PRESENT: indwelling catheter Extremities exam: ABSENT: pedal edema Musculoskeletal exam: ABSENT: deformity, dislocation Neurological exam: PRESENT: alert - Maintained eye contact during the encounter, awake - Awakens easily with verbal stimulus, oriented to person - Responded to her name Psychiatric exam: PRESENT: flat affect. ABSENT: agitated, anxious Skin exam: PRESENT: dry, pallor, warm. ABSENT: rash Results Laboratory Results: 12/09/19 06:40 12/08/19 05:44 12/08/19 12/09/19 15:04 06:40 WBC 4.7 4.7 RBC 3.32 L 3.12 L Hgb 11.1 L 10.2 L Hct 32.1 L 30.4 L MCV 97 98 H MCH 33.5 H 32.6 MCHC 34.6 33.5 RDW 14.2 H 14.2 H Plt Count 241 220 Seg Neutrophils % 44.6 Impressions: Abdomen/Pelvis CT 11/24/19 00:00 IMPRESSION: There is a gas and fluid collection in the soft tissues over the left anterior abdominal wall adjacent to the G-tube tract consistent with area of pocket of extravasated contrast versus abscess. Hepatic cysts Cardiac enlargement Diverticulosis without evidence of diverticulitis. Tube Placement 11/24/19 12:00 IMPRESSION: Malpositioned G-tube. PICC Line Exchange 11/25/19 00:00 IMPRESSION: SUCCESSFUL PLACEMENT OF A 5 FR DUAL LUMEN 36 CM PICC IN THE LEFT BASILIC VEIN. KUB X-Ray 11/25/19 10:45 IMPRESSION: Nasoenteric tube tip overlies distal stomach/proximal duodenum. Chest X-Ray 12/08/19 00:00 IMPRESSION: CHRONIC INTERSTITIAL CHANGES. BORDERLINE CARDIOMEGALY. FAINT RETROCARDIAC DENSITY WHICH COULD BE DUE TO ATELECTASIS VERSUS INFILTRATE. Assessment and Plan - Diagnosis (1) Cutaneous abscess of abdominal wall Is this a current diagnosis for this admission?: Yes Plan: - on G tube site - culture growing E.coli, klebsiella sensitive to levaquin - on levaquin. she is allergic to penicillin 12/07/2019-the nurse had just change the dressing this morning. I did not take the dressing down. She states that the wound has good granulation tissue at the base. It appears to be getting smaller. Once there is complete healing they can consider a new G-tube. They would need to find a surgeon or recovery unit operator to place this. 12/08/2019-the wound care orders from surgery are moist saline dressings changed twice daily. Abdominal binder to prevent patient from dislodging dressings. She completed a full course of antibiotics. Her infection appears to be resolved. Complete healing of the abdominal wound would need to take place before having another procedure to place a percutaneous device. In my experience older patients take much longer to heal. Maximizing nutrition will certainly help the healing. I would expect complete healing of this lesion in 8 to 10 weeks. The patient will then need to be evaluated by surgery for consideration of placement of either another PEG tube or possible jejunostomy tube. Due to the expectation of a protracted length of time for resolution of the wound a Dobbhoff or nasogastric tube would be contraindicated. There would be high risk of mucosal irritation or ulceration. 12/09/2019- There have been several different estimations regarding her intended length of need for TPN. After reviewing multiple notes, assessing her weight loss as well as considering comorbidities and age in my professional opinion I feel that she will need at least 90 days of TPN for the abdomen to heal to the point when surgical placement of a PEG or jejunostomy tube can be considered. It is incredibly important to maintain optimal nutritional status to achieve complete healing of the abdomen. Over that length of time TPN is the only viable option for this patient to achieve complete recovery. (2) On total parenteral nutrition (TPN) Is this a current diagnosis for this admission?: Yes (3) Malnutrition Qualifiers: Malnutrition type: protein-calorie malnutrition Protein-calorie malnutrition severity: moderate Qualified Code(s): E44.0 - Moderate protein- calorie malnutrition Is this a current diagnosis for this admission?: Yes Plan: 12/07/2019-receiving TPN. Initial request for TPN to home infusion therapy was declined. Case management is soliciting other vendors. 12/08/2019-ongoing TPN. Patient has experienced a 5% weight loss since admission. She has been on TPN and this should reverse the weight loss trend. Without TPN I would expect a minimum of 10 to 15% weight loss which would adversely affect healing. Initially her albumin was normal at 4.1 but I believe that IV fluids given early in the hospitalization diluted her albumin level down to what is realistically her baseline. Her total protein and hemoglobin in fact dropped in a similar fashion. I believe the levels that she is at now are her true baseline levels. In addition to lipid, protein and electrolyte imbalance the patient would benefit from a multivitamin with minerals. This will help support wound healing as well as helping with anemia. (4) Dementia Qualifiers: Dementia type: vascular dementia Dementia behavioral disturbance: without behavioral disturbance Qualified Code(s): F01.50 - Vascular dementia without behavioral disturbance Is this a current diagnosis for this admission?: Yes Plan: - bedboudn with dementia -12/07/2019-patient is bedbound with severe dementia. No previous home medications listed. It is unknown if she has been seen by someone to specifically assess the dementia and to see if medication intervention is appropriate. No change in treatment at this time. 12/08/2019-chronic. The patient son is the primary caregiver at home. (5) History of stroke Is this a current diagnosis for this admission?: Yes Plan: - 2 years ago. G tube placed then for feeding - will ask speech therapist to do a formal swallow eval to see if she can be fed by mouth. - not on aspirin or statin (6) Longstanding persistent atrial fibrillation Is this a current diagnosis for this admission?: Yes Plan: 12/07/2019-by auscultation the patient appears to be in sinus rhythm. Rate is normal and no rate control medications are required. Continue to monitor vital signs. 12/08/2019-stable. No change in treatment plan (7) Chronic anticoagulation Is this a current diagnosis for this admission?: Yes Plan: 12/07/2019-currently on therapeutic dose Lovenox as she is n.p.o. (8) Frail elderly Is this a current diagnosis for this admission?: Yes (9) PEG tube malfunction Is this a current diagnosis for this admission?: Yes Plan: As above - Plan Summary Summary: ANGIE KEYES is an 89 year old female with PMH of advanced vascular dementia, CVA, atrial fibrillation on AC, dysarthria, dysphagia s/p G tube placement who presented to the ED on 11/24/2019 due to a dislodged G tube. Abdominal Wall Abscess/Cellulitis at site of prior G-tube: Patient has had the G tube for about 2 years and has been seen in the ED repeatedly and regularly with dislodged G tube. During her presentation on 11/23, due to concern for serosanguinous discharge around the G tube area, surgery was consulted, and she was found to have a large, deep subcutaneous abscess cavity located in the anterior upper abdominal wall with draining point at the old PEG site. She underwent I&D by Dr. Kapoor on 11/25/2019. Due to the location of the abscess, the G tube could not be replaced, so an NG tube was placed instead. Per Dr. Kapoor, she would need a different source of nutrition until the abscess heals, and then G tube placement can then be pursued. Unfortunately, Ms. Keyes pulled out her NG tube, and so Dr. Kapoor ordered a PICC line on 11/24 and she was started on TPN. She has completed 7 days of levaquin therapy for abdominal wall cellulitis/abscess. She is tolerating TPN at goal rate. 12/06/2019 Replacement of a G-tube cannot be accomplished until there is complete healing of the abscess/cellulitis area. Multiple factors including her advanced age, low prealbumin and overall status suggest that this will take a long time. This can be at least 2 to 3 months. Advanced, End-Stage Dementia: her son tells me that she spends the vast majority of her day asleep. She is bed-bound, unable to converse or eat. She has an exceedingly poor quality of life with no hope for improvement. I have discussed with her son that her disease is progressive, and is expected to continue to worsen. She has very poor overall prognosis, with or without a G-tube. She is an appropriate candidate for hospice, in which her son is not interested. - NPO due to high aspiration risk - mittens in place due to pulling at her IV 12/06/2019 Still requiring restraints at times. This morning she appears to be resting comfortably. Malnutrition: The patient is currently receiving TPN to achieve nutritional goals. The patient will need at least 3 months of TPN. It is inappropriate to utilize a nasogastric tube for supplemental nutrition over this length of time. In addition if there is going to be surgical replacement of her G-tube it required her to be significantly improved from a metabolic standpoint and the healing of the current abscess area/abdominal wall cellulitis is going to take at least 2 to 3 months as noted above. Goals of Care: Several extensive goals of care conversations have been had with her son/POA. She remains full code. Ethics consult meeting occurred on 11/27. Family meeting was held on 11/30 with her son, RN, SW, Dr. Kapoor and myself. We discussed that two different surgeons and two different internists have all agreed that Ms. Keyes is a candidate for hospice, has an exceedingly poor prognosis and poor quality of life. Her son is still wanting to pursue all measures and remains hopeful that she will be able to have a G-tube replaced. We discussed that her healing will be slow and prolonged due to her advanced age and poor nutritional status, and may take weeks to months, during which time she is at risk for developing further complications, such as bacteremia from TPN and PICC line. Atrial Fibrillation: rate controlled. She is on treatment dose Lovenox. HR remains in 60-70s. She has no acute indication for telemetry, discontinued. We will continue to monitor on telemetry. Dispo: she was discharged on 12/03/2019, but her son has appealed the discharge. We have arranged Home Health for ongoing TPN via PICC and wound care until her abdominal abscess heals. She can have a G-tube surgically replaced after her wound has healed. I suspect healing will be prolonged in this woman due to poor nutritional status, and she will likely be on TPN for at least 1-2 months (and possibly indefinitely) before her large abdominal wound heals completely and surgery is able to replace a G-tube. She is ready for discharge home with at this time. She is not an appropriate candidate for SNF or LTAC facilities, both of which have declined to accept this patient. 12/06/2019: Heel is pending. We will continue current treatment regimen. Patient will need at least 3 months of TPN. Evidently the patient's son has hired private duty help. Her overall condition will need to be greatly improved if she is to even be considered for an additional surgical procedure. - Time Time Spent with patient: 15-24 minutes Medications reviewed and adjusted accordingly: Yes Anticipated Discharge Disposition: Home with Home Health Anticipated Discharge Timeframe: within 48 hours
[2019-12-10] MEDS: ENOXAPARIN SODIUM INJ 80 MG/0.8 ML DISP.SYRIN SUBCUT SCH ×2 (05:54→18:51)
--- NOTE | 2019-12-10 10:21 | PDOC PROGRESS REPORT ---
Subjective Progress Note for:: 12/10/19 Subjective:: Patient continues to appear quite ill. Extremely debilitated. She did awaken and responds to her name. It did appear that she was trying to smile. Reason For Visit: G TUBE MALFUNCTION Physical Exam Vital Signs: Temp Pulse Resp BP Pulse Ox 99.1 F 76 22 H 92/57 L 96 12/10/19 07:42 12/10/19 07:42 12/10/19 07:42 12/10/19 07:42 12/10/19 07:42 Intake & Output 12/09/19 12/10/19 12/11/19 06:59 06:59 06:59 Intake Total 250 Balance 250 Weight 74.8 kg 72.9 kg General appearance: PRESENT: mild distress, other - Extremely ill-appearing 89-year-old female resting in bed Head exam: PRESENT: atraumatic, normocephalic Respiratory exam: PRESENT: clear to auscultation nancy - Anteriorly, symmetrical, unlabored. ABSENT: rales, rhonchi, tachypnea, wheezes Cardiovascular exam: PRESENT: RRR, +S1, +S2. ABSENT: bradycardia, diastolic murmur, irregular rhythm, systolic murmur, tachycardia GI/Abdominal exam: PRESENT: normal bowel sounds, soft. ABSENT: distended, guarding, tenderness Rectal exam: PRESENT: deferred Gentrourinary exam: PRESENT: indwelling catheter Extremities exam: ABSENT: pedal edema Musculoskeletal exam: ABSENT: ambulatory, deformity, dislocation Neurological exam: PRESENT: alert - Does open her eyes to verbal stimulus., awake, oriented to person - She does respond to her name, other - Unable to fully assess orientation Psychiatric exam: PRESENT: flat affect, unusual affect. ABSENT: agitated, anxious Results Laboratory Results: 12/09/19 06:40 12/08/19 05:44 Impressions: Abdomen/Pelvis CT 11/24/19 00:00 IMPRESSION: There is a gas and fluid collection in the soft tissues over the left anterior abdominal wall adjacent to the G-tube tract consistent with area of pocket of extravasated contrast versus abscess. Hepatic cysts Cardiac enlargement Diverticulosis without evidence of diverticulitis. Tube Placement 11/24/19 12:00 IMPRESSION: Malpositioned G-tube. PICC Line Exchange 11/25/19 00:00 IMPRESSION: SUCCESSFUL PLACEMENT OF A 5 FR DUAL LUMEN 36 CM PICC IN THE LEFT BASILIC VEIN. KUB X-Ray 11/25/19 10:45 IMPRESSION: Nasoenteric tube tip overlies distal stomach/proximal duodenum. Chest X-Ray 12/08/19 00:00 IMPRESSION: CHRONIC INTERSTITIAL CHANGES. BORDERLINE CARDIOMEGALY. FAINT RETROCARDIAC DENSITY WHICH COULD BE DUE TO ATELECTASIS VERSUS INFILTRATE. Assessment and Plan - Diagnosis (1) Cutaneous abscess of abdominal wall Is this a current diagnosis for this admission?: Yes (2) On total parenteral nutrition (TPN) Is this a current diagnosis for this admission?: Yes (3) Malnutrition Qualifiers: Malnutrition type: protein-calorie malnutrition Protein-calorie malnutrition severity: moderate Qualified Code(s): E44.0 - Moderate protein- calorie malnutrition Is this a current diagnosis for this admission?: Yes (4) Dementia Qualifiers: Dementia type: vascular dementia Dementia behavioral disturbance: without behavioral disturbance Qualified Code(s): F01.50 - Vascular dementia without behavioral disturbance Is this a current diagnosis for this admission?: Yes (5) History of stroke Is this a current diagnosis for this admission?: Yes (6) Longstanding persistent atrial fibrillation Is this a current diagnosis for this admission?: Yes (7) Chronic anticoagulation Is this a current diagnosis for this admission?: Yes (8) Frail elderly Is this a current diagnosis for this admission?: Yes (9) PEG tube malfunction Is this a current diagnosis for this admission?: Yes - Plan Summary Summary: ANGIE KEYES is an 89 year old female with PMH of advanced vascular dementia, CVA, atrial fibrillation on AC, dysarthria, dysphagia s/p G tube placement who presented to the ED on 11/24/2019 due to a dislodged G tube. Abdominal Wall Abscess/Cellulitis at site of prior G-tube: Patient has had the G tube for about 2 years and has been seen in the ED repeatedly and regularly with dislodged G tube. During her presentation on 11/23, due to concern for serosanguinous discharge around the G tube area, surgery was consulted, and she was found to have a large, deep subcutaneous abscess cavity located in the anterior upper abdominal wall with draining point at the old PEG site. She underwent I&D by Dr. Kapoor on 11/25/2019. Due to the location of the abscess, the G tube could not be replaced, so an NG tube was placed instead. Per Dr. Kapoor, she would need a different source of nutrition until the abscess heals, and then G tube placement can then be pursued. Unfortunately, Ms. Keyes pulled out her NG tube, and so Dr. Kapoor ordered a PICC line on 11/24 and she was sta rted on TPN. She has completed 7 days of levaquin therapy for abdominal wall cellulitis/abscess. She is tolerating TPN at goal rate. 12/06/2019 Replacement of a G-tube cannot be accomplished until there is complete healing of the abscess/cellulitis area. Multiple factors including her advanced age, low prealbumin and overall status suggest that this will take a long time. This can be at least 2 to 3 months. Advanced, End-Stage Dementia: her son tells me that she spends the vast majority of her day asleep. She is bed-bound, unable to converse or eat. She has an excee dingly poor quality of life with no hope for improvement. I have discussed with her son that her disease is progressive, and is expected to continue to worsen. She has very poor overall prognosis, with or without a G-tube. She is an appropriate candidate for hospice, in which her son is not interested. - NPO due to high aspiration risk - mittens in place due to pulling at her IV 12/06/2019 Still requiring restraints at times. This morning she appears to be resting comfortably. Malnutrition: The patient is currently receiving TPN to achieve nutritional goals. The patient will need at least 3 months of TPN. It is inappropriate to utilize a nasogastric tube for supplemental nutrition over this length of time. In addition if there is going to be surgical replacement of her G-tube it required her to be significantly improved from a metabolic standpoint and the h ealing of the current abscess area/abdominal wall cellulitis is going to take at least 2 to 3 months as noted above. Goals of Care: Several extensive goals of care conversations have been had with her son/POA. She remains full code. Ethics consult meeting occurred on 11/27. Family meeting was held on 11/30 with her son, RN, MIREILLE, Dr. Kapoor and myself. We discussed that two different surgeons and two different internists have all agreed that Ms. Keyes is a candidate for hospice, has an exceedingly poor prognosis and poor quality of life. Her son is still wanting to pursue all measures and remains hopeful that she will be able to have a G-tube replaced. We discussed that her healing will be slow and prolonged due to her advanced age and poor nutritional status, and may take weeks to months, during which time she is at risk for developing further complications, such as bacteremia from TPN and PICC line. Atrial Fibrillation: rate controlled. She is on treatment dose Lovenox. HR remains in 60-70s. She has no acute indication for telemetry, discontinued. We will continue to monitor on telemetry. Dispo: she was discharged on 12/03/2019, but her son has appealed the discharge. We have arranged Home Health for ongoing TPN via PICC and wound care until her abdominal abscess heals. She can have a G-tube surgically replaced after her wound has healed. I suspect healing will be prolonged in this woman due to poor nutritional status, and she will likely be on TPN for at least 1-2 months (and possibly indefinitely) before her large abdominal wound heals completely and surgery is able to replace a G-tube. She is ready for discharge home with at this time. She is not an appropriate candidate for SNF or LTAC facilities, both of which have declined to accept this patient. 12/06/2019: Heel is pending. We will continue current treatment regimen. Patient will need at least 3 months of TPN. Evidently the patient's son has hired private duty help. Her overall condition will need to be greatly improved if she is to even be considered for an additional surgical procedure. 12/10/2019 Continue current treatment plan. No changes at this time. Continue labs per TPN protocol. Unfortunately the patient's son insisted on a swallowing trial yesterday. In order to reassess the patient, I instructed the nurse to do a trial evaluation using nectar thick liquids. The patient did proceed to cough and so she is to remain strict n.p.o. Awaiting approval of home regimen including TPN to be able to discharge to home under the son's care. - Time Time Spent with patient: Less than 15 minutes Medications reviewed and adjusted accordingly: Yes Anticipated Discharge Disposition: Home with Home Health Anticipated Discharge Timeframe: Went home orders/infusion therapy approved and available
[2019-12-10] MEDS: NORMAL SALINE 10 ML SDV (SCHEDULED) IV SCH ×2 (10:36→21:41)
[2019-12-10] MEDS: AMINO ACIDS 5 %/DEXTROSE 20 % 1,000 ML IV PRN (12:06)
[2019-12-11] MEDS: AMINO ACIDS 5 %/DEXTROSE 20 % 1,000 ML IV PRN ×2 (03:57→18:36)
[2019-12-11] MEDS: ENOXAPARIN SODIUM INJ 80 MG/0.8 ML DISP.SYRIN SUBCUT SCH ×2 (05:24→18:37)
[2019-12-11] MEDS: NORMAL SALINE 10 ML SDV (SCHEDULED) IV SCH ×2 (09:51→21:27)
--- NOTE | 2019-12-11 12:39 | PDOC PROGRESS REPORT ---
Subjective Progress Note for:: 12/11/19 Subjective:: Nursing reports that they try to manipulate the patient's legs to consider sitting at the edge of the bed but this caused significant pain. She is otherwise unchanged. Reason For Visit: G TUBE MALFUNCTION Physical Exam Vital Signs: Temp Pulse Resp BP Pulse Ox 98.5 F 74 16 107/46 L 98 12/11/19 08:18 12/11/19 07:16 12/11/19 07:16 12/11/19 07:16 12/11/19 07:16 Intake & Output 12/10/19 12/11/19 12/12/19 06:59 06:59 06:59 Weight 72.9 kg 73.6 kg General appearance: PRESENT: other - Patient is resting motionless. Breathing comfortably. See above regarding nursing trying to mobilize the patient to the bedside. Head exam: PRESENT: atraumatic, normocephalic Eye exam: PRESENT: other - Sunken eye sockets Ear exam: PRESENT: normal external ear exam. ABSENT: bleeding, drainage Respiratory exam: PRESENT: clear to auscultation nancy - Anteriorly, symmetrical, unlabored. ABSENT: rales, rhonchi, tachypnea, wheezes Cardiovascular exam: PRESENT: RRR, +S1, +S2. ABSENT: bradycardia, diastolic murmur, irregular rhythm, systolic murmur, tachycardia GI/Abdominal exam: PRESENT: normal bowel sounds, soft. ABSENT: distended, tenderness Rectal exam: PRESENT: deferred Extremities exam: ABSENT: pedal edema Musculoskeletal exam: ABSENT: ambulatory, deformity, dislocation Neurological exam: ABSENT: awake Skin exam: PRESENT: pallor Results Laboratory Results: 12/09/19 06:40 12/08/19 05:44 Impressions: Abdomen/Pelvis CT 11/24/19 00:00 IMPRESSION: There is a gas and fluid collection in the soft tissues over the left anterior abdominal wall adjacent to the G-tube tract consistent with area of pocket of extravasated contrast versus abscess. Hepatic cysts Cardiac enlargement Diverticulosis without evidence of diverticulitis. Tube Placement 11/24/19 12:00 IMPRESSION: Malpositioned G-tube. PICC Line Exchange 11/25/19 00:00 IMPRESSION: SUCCESSFUL PLACEMENT OF A 5 FR DUAL LUMEN 36 CM PICC IN THE LEFT BASILIC VEIN. KUB X-Ray 11/25/19 10:45 IMPRESSION: Nasoenteric tube tip overlies distal stomach/proximal duodenum. Chest X-Ray 12/08/19 00:00 IMPRESSION: CHRONIC INTERSTITIAL CHANGES. BORDERLINE CARDIOMEGALY. FAINT RETROCARDIAC DENSITY WHICH COULD BE DUE TO ATELECTASIS VERSUS INFILTRATE. Assessment and Plan - Diagnosis (1) Cutaneous abscess of abdominal wall Is this a current diagnosis for this admission?: Yes (2) On total parenteral nutrition (TPN) Is this a current diagnosis for this admission?: Yes (3) Malnutrition Qualifiers: Malnutrition type: protein-calorie malnutrition Protein-calorie malnutrition severity: moderate Qualified Code(s): E44.0 - Moderate protein- calorie malnutrition Is this a current diagnosis for this admission?: Yes (4) Dementia Qualifiers: Dementia type: vascular dementia Dementia behavioral disturbance: without behavioral disturbance Qualified Code(s): F01.50 - Vascular dementia without behavioral disturbance Is this a current diagnosis for this admission?: Yes (5) History of stroke Is this a current diagnosis for this admission?: Yes (6) Longstanding persistent atrial fibrillation Is this a current diagnosis for this admission?: Yes (7) Chronic anticoagulation Is this a current diagnosis for this admission?: Yes (8) Frail elderly Is this a current diagnosis for this admission?: Yes (9) PEG tube malfunction Is this a current diagnosis for this admission?: Yes - Plan Summary Summary: ANGIE KEYES is an 89 year old female with PMH of advanced vascular dementia, CVA, atrial fibrillation on AC, dysarthria, dysphagia s/p G tube placement who presented to the ED on 11/24/2019 due to a dislodged G tube. Abdominal Wall Abscess/Cellulitis at site of prior G-tube: Patient has had the G tube for about 2 years and has been seen in the ED repeatedly and regularly with dislodged G tube. During her presentation on 11/23, due to concern for s erosanguinous discharge around the G tube area, surgery was consulted, and she was found to have a large, deep subcutaneous abscess cavity located in the anterior upper abdominal wall with draining point at the old PEG site. She underwent I&D by Dr. Kapoor on 11/25/2019. Due to the location of the abscess, the G tube could not be replaced, so an NG tube was placed instead. Per Dr. Kapoor, she would need a different source of nutrition until the abscess heals, and then G tube placement can then be pursued. Unfortunately, Ms. Keyes pulled out her NG tube, and so Dr. Kapoor ordered a PICC line on 11/24 and she was started on TPN. She has completed 7 days of levaquin therapy for abdominal wall cellulitis/abscess. She is tolerating TPN at goal rate. 12/06/2019 Replacement of a G-tube cannot be accomplished until there is complete healing of the abscess/cellulitis area. Multiple factors including her advanced age, low prealbumin and overall status suggest that this will take a long time. This can be at least 2 to 3 months. Advanced, End-Stage Dementia: her son tells me that she spends the vast majority of her day asleep. She is bed-bound, unable to converse or eat. She has an exceedingly poor quality of life with no hope for improvement. I have discussed with her son that her disease is progressive, and is expected to continue to worsen. She has very poor overall prognosis, with or without a G-tube. She is an appropriate candidate for hospice, in which her son is not interested. - NPO due to high aspiration risk - mittens in place due to pulling at her IV 12/06/2019 Still requiring restraints at times. This morning she appears to be resting comfortably. Malnutrition: The patient is currently receiving TPN to achieve nutritional goals. The patient will need at least 3 months of TPN. It is inappropriate to utilize a nasogastric tube for supplemental nutrition over this length of time. In addition if there is going to be surgical replacement of her G-tube it required her to be significantly improved from a metabolic standpoint and the healing of the current abscess area/abdominal wall cellulitis is going to take at least 2 to 3 months as noted above. Goals of Care: Several extensive goals of care conversations have been had with her son/POA. She remains full code. Ethics consult meeting occurred on 11/27. Family meeting was held on 11/30 with her son, RN, MIREILLE, Dr. Kapoor and myself. We discussed that two different surgeons and two different internists have all agreed that Ms. Keyes is a candidate for hospice, has an exceedingly poor prognosis and poor quality of life. Her son is still wanting to pursue all measures and remains hopeful that she will be able to have a G-tube replaced. We discussed that her healing will be slow and prolonged due to her advanced age and poor nutritional status, and may take weeks to months, during which time she is at risk for developing further complications, such as bacteremia from TPN and PICC line. Atrial Fibrillation: rate controlled. She is on treatment dose Lovenox. HR remains in 60-70s. She has no acute indication for telemetry, discontinued. We will continue to monitor on telemetry. Dispo: she was discharged on 12/03/2019, but her son has appealed the discharge. We have arranged Home Health for ongoing TPN via PICC and wound care until her abdominal abscess heals. She can have a G-tube surgically replaced after her wound has healed. I suspect healing will be prolonged in this woman due to poor nutritional status, and she will likely be on TPN for at least 1-2 months (and possibly indefinitely) before her large abdominal wound heals completely and surgery is able to replace a G-tube. She is ready for discharge home with at this time. She is not an appropriate candidate for SNF or LTAC facilities, both of which have declined to accept this patient. 12/06/2019: Heel is pending. We will continue current treatment regimen. Patient will need at least 3 months of TPN. Evidently the patient's son has hired private duty help. Her overall condition will need to be greatly improved if she is to even be considered for an additional surgical procedure. 12/10/2019 Continue current treatment plan. No changes at this time. Continue labs per TPN protocol. Unfortunately the patient's son insisted on a swallowing trial yesterday. In order to reassess the patient, I instructed the nurse to do a trial evaluation using nectar thick liquids. The patient did proceed to cough and so she is to remain strict n.p.o. Awaiting approval of home regimen including TPN to be able to discharge to home under the son's care. 12/11/2019 No change in treatment plan. The patient son insisted on nectar thick liquids but the patient failed a bedside trial. Continuing TPN with routine laboratory studies per protocol. Awaiting approval of home TPN regimen for discharge. - Time Time Spent with patient: Less than 15 minutes Medications reviewed and adjusted accordingly: Yes Anticipated Discharge Disposition: Home with Home Health - And home infusion Anticipated Discharge Timeframe: When TPN is approved
[2019-12-12] MEDS: ENOXAPARIN SODIUM INJ 80 MG/0.8 ML DISP.SYRIN SUBCUT SCH ×2 (05:18→18:22)
[2019-12-12] MEDS: SCOPOLAMINE HYDROBROMIDE 1.5 MG PATCH.TD72 TD SCH (05:18)
[2019-12-12] MEDS: NORMAL SALINE 10 ML SDV (AFTER EACH USE) IV PRN (05:31)
[2019-12-12 06:02] LABS: HEMATOCRIT 31.8 % (36.0-47.0); MEAN CORPUSCULAR HEMOGLOBIN 33.7 pg (27.0-33.4); MEAN CORPUSCULAR HGB CONC 34.7 g/dL (32.0-36.0); MEAN CORPUSCULAR VOLUME 97 fl (80-97); PLATELET COUNT 227 10^3/uL (150-450); RED BLOOD COUNT 3.28 10^6/uL (3.72-5.28); RED CELL DISTRIBUTION WIDTH 14.1 % (11.5-14.0)
[2019-12-12 06:30] LABS: ALBUMIN 3.4 g/dL (3.5-5.0); ALKALINE PHOSPHATASE 76 U/L (38-126); ANION GAP 8 (5-19); ASPARTATE AMINO TRANSFERASE 25 U/L (14-36); BILIRUBIN,DIRECT 0.3 mg/dL (0.0-0.4); BILIRUBIN,TOTAL 0.5 mg/dL (0.2-1.3); BLOOD UREA NITROGEN 18 mg/dL (7-20); CARBON DIOXIDE 25 mmol/L (22-30); CHLORIDE 107 mmol/L (98-107); GLUCOSE 117 mg/dL (75-110); PHOSPHORUS 3.1 mg/dL (2.5-4.5); POTASSIUM 4.3 mmol/L (3.6-5.0); TOTAL PROTEIN 6.6 g/dL (6.3-8.2)
[2019-12-12 06:38] LABS: PREALBUMIN 19.1 mg/dL (17.6-36.0)
[2019-12-12] MEDS: NORMAL SALINE 10 ML SDV (SCHEDULED) IV SCH ×2 (09:06→21:29)
[2019-12-12] MEDS: FAT EMULSIONS 250 ML IV SCH (09:06)
[2019-12-12] MEDS: AMINO ACIDS 5 %/DEXTROSE 20 % 1,000 ML IV PRN (12:49)
[2019-12-12 20:37] LABS: HEMATOCRIT 33.7 % (36.0-47.0); HEMOGLOBIN 11.5 g/dL (12.0-15.5); MEAN CORPUSCULAR HEMOGLOBIN 32.8 pg (27.0-33.4); MEAN CORPUSCULAR HGB CONC 34.2 g/dL (32.0-36.0); MEAN CORPUSCULAR VOLUME 96 fl (80-97); PLATELET COUNT 232 10^3/uL (150-450); RED BLOOD COUNT 3.51 10^6/uL (3.72-5.28); WHITE BLOOD COUNT 6.4 10^3/uL (4.0-10.5)
--- NOTE | 2019-12-12 20:53 | PDOC DISCHARGE SUMMARY ---
Impression - Admit/DC Date/PCP Admission Date/Primary Care Provider: 11/24/19 14:27 LAURA DESTIN, Discharge Date: 12/12/19 - Discharge Diagnosis (1) Cutaneous abscess of abdominal wall Is this a current diagnosis for this admission?: Yes (2) On total parenteral nutrition (TPN) Is this a current diagnosis for this admission?: Yes (3) Malnutrition Is this a current diagnosis for this admission?: Yes (4) Dementia Is this a current diagnosis for this admission?: Yes (5) History of stroke Is this a current diagnosis for this admission?: Yes (6) Longstanding persistent atrial fibrillation Is this a current diagnosis for this admission?: Yes (7) Chronic anticoagulation Is this a current diagnosis for this admission?: Yes (8) Frail elderly Is this a current diagnosis for this admission?: Yes (9) PEG tube malfunction Is this a current diagnosis for this admission?: Yes - Assessment Summary: ANGIE KEYES is an 89 year old female with PMH of advanced vascular dementia, CVA, atrial fibrillation on AC, dysarthria, dysphagia s/p G tube placement who presented to the ED on 11/24/2019 due to a dislodged G tube. Abdominal Wall Abscess/Cellulitis at site of prior G-tube: Patient has had the G tube for about 2 years and has been seen in the ED repeatedly and regularly with dislodged G tube. During her presentation on 11/23, due to concern for serosanguinous discharge around the G tube area, surgery was consulted, and she was found to have a large, deep subcutaneous abscess cavity located in the anterior upper abdominal wall with draining point at the old PEG site. She underwent I&D by Dr. Kapoor on 11/25/2019. Due to the location of the abscess, the G tube could not be replaced, so an NG tube was placed instead. Per Dr. Kapoor, she would need a different source of nutrition until the abscess heals, and then G tube placement can then be pursued. Unfortunately, Ms. Keyes pulled out her NG tube, and so Dr. Kapoor ordered a PICC line on 11/24 and she was started on TPN. She has completed 7 days of levaquin therapy for abdominal wall cellulitis/abscess. She is tolerating TPN at goal rate. 12/06/2019 Replacement of a G-tube cannot be accomplished until there is complete healing of the abscess/cellulitis area. Multiple factors including her advanced age, low prealbumin and overall status suggest that this will take a long time. This can be at least 2 to 3 months. Advanced, End-Stage Dementia: her son tells me that she spends the vast majority of her day asleep. She is bed-bound, unable to converse or eat. She has an exceedingly poor quality of life with no hope for improvement. I have discussed with her son that her disease is progressive, and is expected to continue to worsen. She has very poor overall prognosis, with or without a G-tube. She is an appropriate candidate for hospice, in which her son is not interested. - NPO due to high aspiration risk - mittens in place due to pulling at her IV 12/06/2019 Still requiring restraints at times. This morning she appears to be resting comfortably. Malnutrition: The patient is currently receiving TPN to achieve nutritional goals. The patient will need at least 3 months of TPN. It is inappropriate to utilize a nasogastric tube for supplemental nutrition over this length of time. In addition if there is going to be surgical replacement of her G-tube it required her to be significantly improved from a metabolic standpoint and the healing of the current abscess area/abdominal wall cellulitis is going to take at least 2 to 3 months as noted above. Goals of Care: Several extensive goals of care conversations have been had with her son/POA. She remains full code. Ethics consult meeting occurred on 11/27. Family meeting was held on 11/30 with her son, RN, MIREILLE, Dr. Kapoor and myself. We discussed that two different surgeons and two different internists have all agreed that Ms. Keyes is a candidate for hospice, has an exceedingly poor prognosis and poor quality of life. Her son is still wanting to pursue all measures and remains hopeful that she will be able to have a G-tube replaced. We discussed that her healing will be slow and prolonged due to her advanced age and poor nutritional status, and may take weeks to months, during which time she is at risk for developing further complications, such as bacteremia from TPN and PICC line. Atrial Fibrillation: rate controlled. She is on treatment dose Lovenox. HR remains in 60-70s. She has no acute indication for telemetry, discontinued. We will continue to monitor on telemetry. Dispo: she was discharged on 12/03/2019, but her son has appealed the discharge. We have arranged Home Health for ongoing TPN via PICC and wound care until her abdominal abscess heals. She can have a G-tube surgically replaced after her wound has healed. I suspect healing will be prolonged in this woman due to poor nutritional status, and she will likely be on TPN for at least 1-2 months (and possibly indefinitely) before her large abdominal wound heals completely and surgery is able to replace a G-tube. She is ready for discharge home with at this time. She is not an appropriate candidate for SNF or LTAC facilities, both of which have declined to accept this patient. 12/06/2019: Heel is pending. We will continue current treatment regimen. Patient will need at least 3 months of TPN. Evidently the patient's son has hired private duty help. Her overall condition will need to be greatly improved if she is to even be considered for an additional surgical procedure. 12/10/2019 Continue current treatment plan. No changes at this time. Continue labs per TPN protocol. Unfortunately the patient's son insisted on a swallowing trial yesterday. In order to reassess the patient, I instructed the nurse to do a trial evaluation using nectar thick liquids. The patient did proceed to cough and so she is to remain strict n.p.o. Awaiting approval of home regimen including TPN to be able to discharge to home under the son's care. 12/11/2019 No change in treatment plan. The patient son insisted on nectar thick liquids but the patient failed a bedside trial. Continuing TPN with routine laboratory studies per protocol. Awaiting approval of home TPN regimen for discharge. - Additional Information Resuscitation Status: Full Code Discharge Diet: Other (Comments) - TPN Discharge Activity: Bedrest, Supervised Activity Referrals: LAURA WEIR DO [Primary Care Provider] - 12/14/19 10:45 am Prescriptions: Enoxaparin Sodium [Lovenox Inj 80 mg/0.8 ml Disp.syrin] 75 mg SUBCUT Q12 #60 disp.syrin Scopolamine Hydrobromide [Transderm-Scop 1.5 mg Patch] 1 each TD Q72H #10 patch.td72 Home Medications: Amino Acids 5 %/Dextrose 20 % [Clinimix 5%-20% TPN Solution 1000 ml Bag] 1,000 ml IV .CONTINUOUS PRN iv.soln 12/03/19 Enoxaparin Sodium [Lovenox Inj 80 mg/0.8 ml Disp.syrin] 75 mg SUBCUT Q12 #60 disp.syrin 12/03/19 Fat Emulsions [Intralipid 20% Inj 50 gm/250 ml Bag] 250 ml IV MoTh@1000 bag 12/03/19 Scopolamine Hydrobromide [Transderm-Scop 1.5 mg Patch] 1 each TD Q72H #10 patch.td72 12/03/19 History of Present Illiness History of Present Illness: ANGIE KEYES is a 89 year old female PMH of Stroke, atrial fibrillation on eliquis, g tube placement for feeding who was admitted from the ED due to a dislodged G tube. Patient has had the G tube for about 2 years and has been in the ED multiple times due to dislodged G tube. She was brought to the ED yesterday due to a leaking feeding tube. It was replaced in the ED and was discharged back home. This morning her son noted that her feeding tube fell out of her stomach hence she was brought back to the ED. ED physician tried to replace her feeding tube again but was unable to hence surgery was consulted who recommended PEG tube placement. There was also note of serosanguinous discharge around the G tube area. Son denies any fever. Hospital Course Hospital Course: Prolonged hospital course. See details above. Discharge summary prepared in anticipation of early childhood teacher assistant transport tomorrow Physical Exam Vital Signs: Temp Pulse Resp BP Pulse Ox 98.1 F 90 23 H 109/48 L 95 12/12/19 15:22 12/12/19 15:22 12/12/19 15:22 12/12/19 15:22 12/12/19 15:22 Intake & Output 12/11/19 12/12/19 12/13/19 06:59 06:59 06:59 Intake Total 250 Balance 250 Weight 73.6 kg 72.8 kg General appearance: PRESENT: no acute distress, cooperative - Patient in fact was the most awake and alert and interactive that I have seen her over the last several days, well-developed Head exam: PRESENT: atraumatic, normocephalic Ear exam: PRESENT: normal external ear exam. ABSENT: bleeding, drainage Mouth exam: PRESENT: moist, tongue midline Respiratory exam: PRESENT: clear to auscultation nancy, symmetrical, unlabored. ABSENT: rales, rhonchi, tachypnea, wheezes Cardiovascular exam: PRESENT: RRR, +S1, +S2. ABSENT: bradycardia, diastolic murmur, irregular rhythm, systolic murmur, tachycardia GI/Abdominal exam: PRESENT: normal bowel sounds, soft. ABSENT: distended, guarding, tenderness Rectal exam: PRESENT: deferred Gentrourinary exam: PRESENT: indwelling catheter Extremities exam: ABSENT: pedal edema Neurological exam: PRESENT: alert, awake, oriented to person - She does respond to her name, CN II-XII grossly intact. ABSENT: oriented to place, oriented to time, oriented to situation Psychiatric exam: PRESENT: appropriate affect. ABSENT: agitated, anxious Results Laboratory Results: WBC 6.4 10^3/uL (4.0-10.5) 12/12/19 20:20 RBC 3.51 10^6/uL (3.72-5.28) L 12/12/19 20:20 Hgb 11.5 g/dL (12.0-15.5) L 12/12/19 20:20 Hct 33.7 % (36.0-47.0) L 12/12/19 20:20 MCV 96 fl (80-97) 12/12/19 20:20 MCH 32.8 pg (27.0-33.4) 12/12/19 20:20 MCHC 34.2 g/dL (32.0-36.0) 12/12/19 20:20 RDW 14.0 % (11.5-14.0) 12/12/19 20:20 Plt Count 232 10^3/uL (150-450) 12/12/19 20:20 Lymph % (Auto) 39.2 % (13-45) 12/08/19 15:04 [place] % (Auto) 11.2 % (3-13) 12/08/19 15:04 Eos % (Auto) 4.4 % (0-6) 12/08/19 15:04 Baso % (Auto) 0.6 % (0-2) 12/08/19 15:04 Absolute Neuts (auto) 2.1 10^3/uL (1.7-8.2) 12/08/19 15:04 Absolute Lymphs (auto) 1.8 10^3/uL (0.5-4.7) 12/08/19 15:04 Absolute Monos (auto) 0.5 10^3/uL (0.1-1.4) 12/08/19 15:04 Absolute Eos (auto) 0.2 10^3/uL (0.0-0.6) 12/08/19 15:04 Absolute Basos (auto) 0.0 10^3/uL (0.0-0.2) 12/08/19 15:04 Seg Neutrophils % 44.6 % (42-78) 12/08/19 15:04 Platelet Estimate Cancelled 11/24/19 14:05 PT 14.7 SEC (11.4-15.4) 11/28/19 06:47 INR 1.13 11/28/19 06:47 Sodium 139.6 mmol/L (137-145) 12/12/19 05:15 Potassium 4.3 mmol/L (3.6-5.0) 12/12/19 05:15 Chloride 107 mmol/L (98-107) 12/12/19 05:15 Carbon Dioxide 25 mmol/L (22-30) 12/12/19 05:15 Anion Gap 8 (5-19) 12/12/19 05:15 BUN 18 mg/dL (7-20) 12/12/19 05:15 Creatinine 0.56 mg/dL (0.52-1.25) 12/12/19 05:15 Est GFR ( Amer) > 60 (>60) 12/12/19 05:15 Est GFR (MDRD) Non-Af > 60 (>60) 12/12/19 05:15 Glucose 117 mg/dL (75-110) H 12/12/19 05:15 POC Glucose 116 mg/dL (70-110) H 12/12/19 18:20 Calcium 9.0 mg/dL (8.4-10.2) 12/12/19 05:15 Phosphorus 3.1 mg/dL (2.5-4.5) 12/12/19 05:15 Magnesium 2.0 mg/dL (1.6-2.3) 12/12/19 05:15 Total Bilirubin 0.5 mg/dL (0.2-1.3) 12/12/19 05:15 Direct Bilirubin 0.3 mg/dL (0.0-0.4) 12/12/19 05:15 Neonat Total Bilirubin Not Reportable 12/12/19 05:15 Neonat Direct Bilirubin Not Reportable 12/12/19 05:15 Neonat Indirect Bili Not Reportable 12/12/19 05:15 AST 25 U/L (14-36) 12/12/19 05:15 ALT 24 U/L (<35) 12/12/19 05:15 Alkaline Phosphatase 76 U/L (38-126) 12/12/19 05:15 Total Protein 6.6 g/dL (6.3-8.2) 12/12/19 05:15 Albumin 3.4 g/dL (3.5-5.0) L 12/12/19 05:15 Prealbumin 19.1 mg/dL (17.6-36.0) 12/12/19 05:15 Triglycerides 146 mg/dL (<150) 12/12/19 18:00 SARS-CoV-2 (PCR) NEGATIVE (NEGATIVE) 11/24/19 21:05 Slides for Path Review Cancelled 11/24/19 14:05 Impressions: Abdomen/Pelvis CT 11/24/19 00:00 IMPRESSION: There is a gas and fluid collection in the soft tissues over the left anterior abdominal wall adjacent to the G-tube tract consistent with area of pocket of extravasated contrast versus abscess. Hepatic cysts Cardiac enlargement Diverticulosis without evidence of diverticulitis. Tube Placement 11/24/19 12:00 IMPRESSION: Malpositioned G-tube. PICC Line Exchange 11/25/19 00:00 IMPRESSION: SUCCESSFUL PLACEMENT OF A 5 FR DUAL LUMEN 36 CM PICC IN THE LEFT BASILIC VEIN. KUB X-Ray 11/25/19 10:45 IMPRESSION: Nasoenteric tube tip overlies distal stomach/proximal duodenum. Chest X-Ray 12/08/19 00:00 IMPRESSION: CHRONIC INTERSTITIAL CHANGES. BORDERLINE CARDIOMEGALY. FAINT RETROCARDIAC DENSITY WHICH COULD BE DUE TO ATELECTASIS VERSUS INFILTRATE. Plan Health Concerns: Elderly patient discharging home with home TPN Plan of Treatment: The patient son is adamant that the patient discharged home. She is n.p.o. therefore on TPN. High risk of treatment failure Time Spent: Greater than 30 Minutes Stroke Is this a Stroke Patient?: No Acute Heart Failure Is this a Heart Failure Patient?: No
[2019-12-13] MEDS: AMINO ACIDS 5 %/DEXTROSE 20 % 1,000 ML IV PRN (06:01)
[2019-12-13] MEDS: ENOXAPARIN SODIUM INJ 80 MG/0.8 ML DISP.SYRIN SUBCUT SCH (06:05)
[2019-12-13] MEDS: NORMAL SALINE 10 ML SDV (SCHEDULED) IV SCH (09:22)
[2019-12-13 12:43] VITALS: BP 108/46
--- NOTE | 2019-12-13 20:06 | PDOC DISCHARGE SUMMARY ---
Impression - Admit/DC Date/PCP Admission Date/Primary Care Provider: 11/24/19 14:27 LAURA DESTIN, Discharge Date: 12/13/19 - Discharge Diagnosis (1) Cutaneous abscess of abdominal wall Is this a current diagnosis for this admission?: Yes (2) Dementia Is this a current diagnosis for this admission?: Yes (3) History of stroke Is this a current diagnosis for this admission?: Yes (4) Chronic anticoagulation Is this a current diagnosis for this admission?: Yes (5) Frail elderly Is this a current diagnosis for this admission?: Yes (6) On total parenteral nutrition (TPN) Is this a current diagnosis for this admission?: Yes (7) Malnutrition Is this a current diagnosis for this admission?: Yes (8) Atrial fibrillation Is this a current diagnosis for this admission?: Yes (9) PEG tube malfunction Is this a current diagnosis for this admission?: Yes - Assessment Summary: ANGIE KEYES is an 89 year old female with PMH of advanced vascular dementia, CVA, atrial fibrillation on AC, dysarthria, dysphagia s/p G tube placement who presented to the ED on 11/24/2019 due to a dislodged G tube. Abdominal Wall Abscess/Cellulitis at site of prior G-tube: Patient has had the G tube for about 2 years and has been seen in the ED repeatedly and regularly with dislodged G tube. During her presentation on 11/23, due to concern for serosanguinous discharge around the G tube area, surgery was consulted, and she was found to have a large, deep subcutaneous abscess cavity located in the anterior upper abdominal wall with draining point at the old PEG site. She underwent I&D by Dr. Kapoor on 11/25/2019. Due to the location of the abscess, the G tube could not be replaced, so an NG tube was placed instead. Per Dr. Kapoor, she would need a different source of nutrition until the abscess heals, and then G tube placement can then be pursued. Unfortunately, Ms. Keyes pulled out her NG tube, and so Dr. Kapoor ordered a PICC line on 11/24 and she was started on TPN. She has completed 7 days of levaquin therapy for abdominal wall cellulitis/abscess. She is tolerating TPN at goal rate. Advanced, End-Stage Dementia: her son tells me that she spends the vast majority of her day asleep. She is bed-bound, unable to converse or eat. She has an exceedingly poor quality of life with no hope for improvement. I have discussed with her son that her disease is progressive, and is expected to continue to worsen. She has very poor overall prognosis, with or without a G-tube. She is an appropriate candidate for hospice, in which her son is not interested. She remains NPO due to high aspiration risk. Malnutrition: The patient is currently receiving TPN to achieve nutritional goals. The patient will need at least 3 months of TPN. It is inappropriate to utilize a nasogastric tube for supplemental nutrition over this length of time. In addition if there is going to be surgical replacement of her G-tube it required her to be significantly improved from a metabolic standpoint and the healing of the current abscess area/abdominal wall cellulitis is going to take at least 2 to 3 months as noted above. Goals of Care: Several extensive goals of care conversations have been had with her son/POA. She remains full code. Ethics consult meeting occurred on 11/27. Family meeting was held on 11/30 with her son, RN, SW, Dr. Kapoor and myself. We discussed that two different surgeons and two different internists have all agreed that Ms. Keyes is a candidate for hospice, has an exceedingly poor prognosis and poor quality of life. Her son is still wanting to pursue all measures and remains hopeful that she will be able to have a G-tube replaced. We discussed that her healing will be slow and prolonged due to her advanced age and poor nutritional status, and may take weeks to months, during which time she is at risk for developing further complications, such as bacteremia from TPN and PICC line. Atrial Fibrillation: rate controlled. She is on treatment dose Lovenox. HR remains in 60-70s. She has no acute indication for telemetry, discontinued. We will continue to monitor on telemetry. Disposition: she was discharged on 12/03/2019, but her son has appealed the discharge. We have arranged Home Health for ongoing TPN via PICC and wound care until her abdominal abscess heals. She can have a G-tube surgically replaced after her wound has healed. I suspect healing will be prolonged in this woman due to poor nutritional status, and she will likely be on TPN for at least 1-2 months (and possibly indefinitely) before her large abdominal wound heals completely and surgery is able to replace a G-tube. She is ready for discharge home with HH at this time. She is not an appropriate candidate for SNF or LTAC facilities, both of which have declined to accept this patient. She was finally discharged home with home health and TPN on 12/13/2019. - Additional Information Resuscitation Status: Full Code Discharge Diet: Other (Comments) Discharge Activity: Bedrest, Supervised Activity Referrals: LAURA WEIR DO [Primary Care Provider] - 12/14/19 10:45 am Prescriptions: Enoxaparin Sodium [Lovenox Inj 80 mg/0.8 ml Disp.syrin] 75 mg SUBCUT Q12 #60 disp.syrin Scopolamine Hydrobromide [Transderm-Scop 1.5 mg Patch] 1 each TD Q72H #10 patch.td72 Home Medications: Amino Acids 5 %/Dextrose 20 % [Clinimix 5%-20% TPN Solution 1000 ml Bag] 1,000 ml IV .CONTINUOUS PRN iv.soln 12/03/19 Enoxaparin Sodium [Lovenox Inj 80 mg/0.8 ml Disp.syrin] 75 mg SUBCUT Q12 #60 disp.syrin 12/03/19 Fat Emulsions [Intralipid 20% Inj 50 gm/250 ml Bag] 250 ml IV MoTh@1000 bag 12/03/19 Scopolamine Hydrobromide [Transderm-Scop 1.5 mg Patch] 1 each TD Q72H #10 patch.td72 12/03/19 History of Present Illiness History of Present Illness: ANGIE KEYES is a 89 year old female Hospital Course Hospital Course: Prolonged hospital course. See details above. Discharge summary prepared in anticipation of [facility] specialist transport tomorrow Physical Exam Vital Signs: Temp Pulse Resp BP Pulse Ox 98.1 F 74 21 H 108/46 L 99 12/13/19 11:57 12/13/19 11:57 12/13/19 11:57 12/13/19 11:57 12/13/19 11:57 Intake & Output 12/12/19 12/13/19 12/14/19 06:59 06:59 06:59 Intake Total 250 Balance 250 Weight 72.8 kg 72.8 kg 72 kg Results Laboratory Results: WBC 6.4 10^3/uL (4.0-10.5) 12/12/19 20:20 RBC 3.51 10^6/uL (3.72-5.28) L 12/12/19 20:20 Hgb 11.5 g/dL (12.0-15.5) L 12/12/19 20:20 Hct 33.7 % (36.0-47.0) L 12/12/19 20:20 MCV 96 fl (80-97) 12/12/19 20:20 MCH 32.8 pg (27.0-33.4) 12/12/19 20:20 MCHC 34.2 g/dL (32.0-36.0) 12/12/19 20:20 RDW 14.0 % (11.5-14.0) 12/12/19 20:20 Plt Count 232 10^3/uL (150-450) 12/12/19 20:20 Lymph % (Auto) 39.2 % (13-45) 12/08/19 15:04 [place] % (Auto) 11.2 % (3-13) 12/08/19 15:04 Eos % (Auto) 4.4 % (0-6) 12/08/19 15:04 Baso % (Auto) 0.6 % (0-2) 12/08/19 15:04 Absolute Neuts (auto) 2.1 10^3/uL (1.7-8.2) 12/08/19 15:04 Absolute Lymphs (auto) 1.8 10^3/uL (0.5-4.7) 12/08/19 15:04 Absolute Monos (auto) 0.5 10^3/uL (0.1-1.4) 12/08/19 15:04 Absolute Eos (auto) 0.2 10^3/uL (0.0-0.6) 12/08/19 15:04 Absolute Basos (auto) 0.0 10^3/uL (0.0-0.2) 12/08/19 15:04 Seg Neutrophils % 44.6 % (42-78) 12/08/19 15:04 Platelet Estimate Cancelled 11/24/19 14:05 PT 14.7 SEC (11.4-15.4) 11/28/19 06:47 INR 1.13 11/28/19 06:47 Sodium 139.6 mmol/L (137-145) 12/12/19 05:15 Potassium 4.3 mmol/L (3.6-5.0) 12/12/19 05:15 Chloride 107 mmol/L (98-107) 12/12/19 05:15 Carbon Dioxide 25 mmol/L (22-30) 12/12/19 05:15 Anion Gap 8 (5-19) 12/12/19 05:15 BUN 18 mg/dL (7-20) 12/12/19 05:15 Creatinine 0.56 mg/dL (0.52-1.25) 12/12/19 05:15 Est GFR ( Amer) > 60 (>60) 12/12/19 05:15 Est GFR (MDRD) Non-Af > 60 (>60) 12/12/19 05:15 Glucose 117 mg/dL (75-110) H 12/12/19 05:15 POC Glucose 120 mg/dL (70-110) H 12/13/19 12:35 Calcium 9.0 mg/dL (8.4-10.2) 12/12/19 05:15 Phosphorus 3.1 mg/dL (2.5-4.5) 12/12/19 05:15 Magnesium 2.0 mg/dL (1.6-2.3) 12/12/19 05:15 Total Bilirubin 0.5 mg/dL (0.2-1.3) 12/12/19 05:15 Direct Bilirubin 0.3 mg/dL (0.0-0.4) 12/12/19 05:15 Neonat Total Bilirubin Not Reportable 12/12/19 05:15 Neonat Direct Bilirubin Not Reportable 12/12/19 05:15 Neonat Indirect Bili Not Reportable 12/12/19 05:15 AST 25 U/L (14-36) 12/12/19 05:15 ALT 24 U/L (<35) 12/12/19 05:15 Alkaline Phosphatase 76 U/L (38-126) 12/12/19 05:15 Total Protein 6.6 g/dL (6.3-8.2) 12/12/19 05:15 Albumin 3.4 g/dL (3.5-5.0) L 12/12/19 05:15 Prealbumin 19.1 mg/dL (17.6-36.0) 12/12/19 05:15 Triglycerides 146 mg/dL (<150) 12/12/19 18:00 SARS-CoV-2 (PCR) NEGATIVE (NEGATIVE) 11/24/19 21:05 Slides for Path Review Cancelled 11/24/19 14:05 Impressions: Abdomen/Pelvis CT 11/24/19 00:00 IMPRESSION: There is a gas and fluid collection in the soft tissues over the left anterior abdominal wall adjacent to the G-tube tract consistent with area of pocket of extravasated contrast versus abscess. Hepatic cysts Cardiac enlargement Diverticulosis without evidence of diverticulitis. Tube Placement 11/24/19 12:00 IMPRESSION: Malpositioned G-tube. PICC Line Exchange 11/25/19 00:00 IMPRESSION: SUCCESSFUL PLACEMENT OF A 5 FR DUAL LUMEN 36 CM PICC IN THE LEFT BASILIC VEIN. KUB X-Ray 11/25/19 10:45 IMPRESSION: Nasoenteric tube tip overlies distal stomach/proximal duodenum. Chest X-Ray 12/08/19 00:00 IMPRESSION: CHRONIC INTERSTITIAL CHANGES. BORDERLINE CARDIOMEGALY. FAINT RETROCARDIAC DENSITY WHICH COULD BE DUE TO ATELECTASIS VERSUS INFILTRATE. Plan Health Concerns: Elderly patient discharging home with home TPN Plan of Treatment: The patient son is adamant that the patient discharged home. She is n.p.o. therefore on TPN. High risk of treatment failure Stroke Is this a Stroke Patient?: No Acute Heart Failure Is this a Heart Failure Patient?: No
== END 2019-12-13 13:34 | disposition home health service (06) | DRG 394 ==
LOC: ER 11:39 → EH 14:27 → 4S 16:14
PROVIDERS: ADMIT Internal Medicine; ATTEND Hospitalist
PROC: 02HV33Z Insertion of Infusion Device into Superior Vena Cava, Percutaneous Approach (ICD-10-PCS; 2019-11-25)
PROC: 3E0336Z Introduction of Nutritional Substance into Peripheral Vein, Percutaneous Approach (ICD-10-PCS; 2019-11-25)
PROC: 0J983ZX Drainage of Abdomen Subcutaneous Tissue and Fascia, Percutaneous Approach, Diagnostic (ICD-10-PCS; principal; 2019-11-25 09:00)
DX: K94.23 Gastrostomy malfunction (principal); L03.311 Cellulitis of abdominal wall; E44.0 Moderate protein-calorie malnutrition; I48.11 Longstanding persistent atrial fibrillation; Y83.3 Surgical operation with formation of external stoma as the cause of abnormal reaction of the patient, or of later complication, without mention of misadventure at the time of the procedure; B96.20 Unspecified Escherichia coli [E. coli] as the cause of diseases classified elsewhere; B96.1 Klebsiella pneumoniae [K. pneumoniae] as the cause of diseases classified elsewhere; R54 Age-related physical debility; F01.50 Vascular dementia, unspecified severity, without behavioral disturbance, psychotic disturbance, mood disturbance, and anxiety; I48.0 Paroxysmal atrial fibrillation; I10 Essential (primary) hypertension; Z20.828 Contact with and (suspected) exposure to other viral communicable diseases; Z78.1 Physical restraint status; Z86.73 Personal history of transient ischemic attack (TIA), and cerebral infarction without residual deficits; Z03.818 Encounter for observation for suspected exposure to other biological agents ruled out; Z79.01 Long term (current) use of anticoagulants; Z74.01 Bed confinement status; Z79.899 Other long term (current) drug therapy; Z88.0 Allergy status to penicillin; Z88.2 Allergy status to sulfonamides
CPT/HCPCS: 36415; 36584; 49465; 700; 71045; 74018; 74177; 80048; 80053; 82962; 83735; 84100; 84134; 84478; 85025; 85027; 85610; 87040; 87070; 87075; 87077; 87150; 87186; 87205; 87635; 93005; 93010; 99285; C9803; J1200; J1642; J1650; J1940; J1956; J2060; J2250; J2270; J2405; J2704; J3010; J3490; J7030; J7060; J7121

== ENCOUNTER 2019-12-16 12:56 | Observation (INO) | payer MEDICARE, OTHER ==
--- NOTE | 2019-12-16 13:47 | ER Document Report ---
ED Medical Screen (RME) - General Chief Complaint: Other Stated Complaint: CATHETER ISSUES Time Seen by Provider: 12/16/19 13:41 Primary Care Provider: LAURA WEIR DO [Primary Care Provider] - Follow up as needed Notes: Patient presents after pulling out her PICC line. Patient with a history of dementia, A. fib and CVA. Patient had previously had a G-tube but developed a gastric wall abscess. Patient was recently discharged 3 days ago. Patient had been receiving TPN via her central line. I have greeted and performed a rapid initial assessment of this patient. A comprehensive ED assessment and evaluation of the patient, analysis of test results and completion of the medical decision making process will be conducted by additional ED providers. TRAVEL OUTSIDE OF THE [place] IN LAST 30 DAYS: No - Related Data Allergies/Adverse Reactions: Penicillins Allergy (Verified 11/24/19 20:09) Sulfa (Sulfonamide Antibiotics) Allergy (Verified 11/24/19 20:09) Past Medical History - Past Medical History Cardiac Medical History: Reports: Hx Atrial Fibrillation, Hx Hypertension Neurological Medical History: Reports: Hx Cerebrovascular Accident Renal/ Medical History: Denies: Hx Peritoneal Dialysis Psychiatric Medical History: Reports: Hx Dementia Denies: Hx Depression Past Surgical History: Reports: Hx Abdominal Surgery - feeding tube, Other - G tube placement - Immunizations Immunizations up to date: Yes Hx Diphtheria, Pertussis, Tetanus Vaccination: Yes Physical Exam - Vital signs Vitals: Temp Pulse Resp BP Pulse Ox 98.6 F 101 H 16 118/61 96 12/16/19 13:08 12/16/19 13:08 12/16/19 13:08 12/16/19 13:08 12/16/19 13:08 - General General appearance: Appears well, Alert - Neurological Cognition: Confused Course - Vital Signs Vital signs: Temp Pulse Resp BP Pulse Ox 98.6 F 101 H 16 118/61 96 12/16/19 13:08 12/16/19 13:08 12/16/19 13:08 12/16/19 13:08 12/16/19 13:08 Doctor's Discharge - Discharge Referrals: LAURA WEIR DO [Primary Care Provider] - Follow up as needed
[2019-12-16] MEDS ORDERED: LORAZEPAM INJ 2 MG/1 ML VIAL IV ONE (15:47)
[2019-12-16] MEDS ORDERED: LORAZEPAM INJ 2 MG/1 ML VIAL IM ONE (15:47)
--- NOTE | 2019-12-16 17:03 | ER Document Report ---
ED General - General Chief Complaint: Other Stated Complaint: CATHETER ISSUES Time Seen by Provider: 12/16/19 13:41 Primary Care Provider: LAURA WEIR DO [Primary Care Provider] - Follow up as needed Mode of Arrival: Medic Information source: Relative - Son Cannot obtain history due to: Other - Expressive aphasia and foreign language Notes: This 89-year-old patient presenting to the emergency department history of CVA, dysphagia, PEG tube site became infected and a PICC line for TPN was placed. Today the patient accidentally pulled the PICC line. She is brought to the emergency department replacement of the PICC line. TRAVEL OUTSIDE OF THE [place] IN LAST 30 DAYS: No - Related Data Allergies/Adverse Reactions: Penicillins Allergy (Verified 11/24/19 20:09) Sulfa (Sulfonamide Antibiotics) Allergy (Verified 11/24/19 20:09) Past Medical History - General Information source: Relative - Son - Social History Smoking Status: Unknown if Ever Smoked Family History: None, Reviewed & Not Pertinent, Other - ams - Past Medical History Cardiac Medical History: Reports: Hx Atrial Fibrillation, Hx Hypertension Neurological Medical History: Reports: Hx Cerebrovascular Accident Renal/ Medical History: Denies: Hx Peritoneal Dialysis Psychiatric Medical History: Reports: Hx Dementia Denies: Hx Depression Past Surgical History: Reports: Hx Abdominal Surgery - feeding tube, Other - G tube placement - Immunizations Immunizations up to date: Yes Hx Diphtheria, Pertussis, Tetanus Vaccination: Yes Review of Systems - Review of Systems -: Yes ROS unobtainable due to patient's medical condition Physical Exam - Vital signs Vitals: Temp Pulse Resp BP Pulse Ox 98.6 F 101 H 16 118/61 96 12/16/19 13:08 12/16/19 13:08 12/16/19 13:08 12/16/19 13:08 12/16/19 13:08 - Notes Notes: PHYSICAL EXAMINATION: Physical Exam: General: Well elderly female in no acute distress HEENT: NC/AT, pupils equal round and reactive to light, MM moist,nares clear, oropharynx clear, airway patent Neck: supple, no adenopathy, Lungs: Clear Heart: Regular rate and rhythm no murmur gallop or rub Abdomen: Soft, active, nontender, no masses, no hepatosplenomegaly Neuro: Alert and unable to give a history or respond to questions. Skin: Intact no open lesions, no rash Course - Re-evaluation Re-evalutation: 12/16/19 17:02 I had requested that radiology see the patient for PICC line replacement. Patient is too combative and uncooperative for a PICC line to be placed. She was given 1 mg of Ativan, however, radiology was unable to place the line. It was suggested that surgery be consulted and a tunnel PICC line be placed. 12/16/19 17:03 Dr. Medina, the general surgeon consulting technical manager was contacted, after discussion, will see the patient in the emergency department. 12/16/19 19:44 Dr. Medina has come to the bedside interacted with the son and examined the patient. He has agreed to continue treatment as the wound is healing well and the son is well invested in care for his mother. The patient will be brought into the hospital under the hospitalist service, a Randhawa catheter procedure will be planned in the operating theater. - Vital Signs Vital signs: Temp Pulse Resp BP Pulse Ox 98.6 F 101 H 16 118/61 96 12/16/19 13:08 12/16/19 13:08 12/16/19 13:08 12/16/19 13:08 12/16/19 13:08 Discharge - Discharge Clinical Impression: Displacement of peripherally inserted central catheter (PICC), History of stroke Atrial fibrillation Qualifiers: Atrial fibrillation type: longstanding persistent Qualified Code(s): I48.11 - Longstanding persistent atrial fibrillation Condition: Fair Disposition: ADMITTED INPATIENT Admitting Provider: Dr Valiente Unit Admitted: Medical Floor Additional Instructions: The PICC line was pulled out and radiology was unable to restart a line today. You may bring the patient back to the hospital on Thursday and attempt to get a line restarted. HOME CARE INSTRUCTIONS & INFORMATION: Thank you for choosing us for your medical needs. We hope you're satisfied with the care you received. After you leave, you must properly care for your problem and, at the same time, observe its progress. Any condition can change. Some illnesses can change rapidly over hours or days. If your condition worsens, return to the Emergency Department or see your physician promptly. ABOUT YOUR X-RAYS AND EKG'S: If you had an EKG or X-rays taken, they have been read by the Emergency Physician. The X-rays and EKG's will also be read by a Radiologist or Roll Carrier within 24 hours. If discrepancies are noted, you will be notified by telephone. Please be certain the ED has a correct telephone number & address where you can be reached. Also, realize that some fractures or abnormalities do not show up on initial X-rays. If your symptoms continue, see your physician. ABOUT YOUR LABORATORY TEST: If you had laboratory tests, the results have been reviewed by the Emergency Physician. Some test results (for example cultures) may not be available for several days. You will be contacted if any test result shows you need additional treatment. Please be certain the ED has a correct telephone number and address where you can be reached. ABOUT YOUR MEDICATIONS: You will receive instructions on how to take your medicine on the prescription label you receive. Additional information may be provided by the Pharmacy. If you have questions afterwards, call the ED for clarification or further instructions. Some prescribed medications may cause drowsiness. Do not perform tasks such as driving a car or operating machinery without consulting your Pharmacist. If you feel you need a refill of pain medication, your condition will need re-evaluation. Please do not call for a refill of any medication. ABOUT YOUR SIGNATURE: Signature of this document acknowledges to followin. Understanding that you received emergency treatment and that you may be released before al medical problems are known or treated. Please be certain the ED has a correct phone number & address where you can be reached. 2. Acknowledgement that you will arrange for follow-up care as recommended. 3. Authorization for the Emergency Physician to provide information to your follow-up Physician in order to maximize your care. AT ANY TIME, IF YOUR SYMPTOMS CHANGE SIGNIFICANTLY OR WORSEN OR YOU DEVELOP NEW SYMPTOMS, RETURN TO THE EMERGENCY DEPARTMENT IMMEDIATELY FOR RE-EVALUATION. OUR GOAL IS TO PROVIDE EXCELLENT MEDICAL CARE! WE HOPE THAT WE HAVE MET YOUR EXPECTATIONS DURING YOUR EMERGENCY DEPARTMENT VISIT AND THAT YOU FEEL YOU HAVE RECEIVED EXCELLENT CARE! Referrals: LAURA WEIR, [Primary Care Provider] - Follow up as needed
[2019-12-16] MEDS ORDERED: NORMAL SALINE 1000 ML 1,000 ML IV ONE (19:41)
--- NOTE | 2019-12-16 19:48 | PDOC CONSULTATION ---
Consultation Consult Date: 12/16/19 Attending physician:: [facility] Provider Consulted: IGNACIO BALLARD Consult reason:: PICC line dislodged History of Present Illness Admission Date/PCP: LAURA WEIR DO History of Present Illness: ANGIE MEDINA is a 89 year old female Comes to the emergency department via ground rescue because of PICC line dislodgment. The patient is an 89-year-old [place] female, cared for by her son at home who is 3 days status post discharge from the hospital, [facility], after a 3-week stay for abdominal wall infection related to a displaced gastrostomy tube. Patient had debridement of the wound by Dr. Kapoor, then underwent dressing changes. The patient had a PICC line placed by the radiology department and was sent home on TPN. The patient has received excellent care from her son, who now is with her at bedside, and wishes to have the PICC line replaced. Attempts were made earlier this afternoon by the radiology department but were unsuccessful. Surgery was consulted, and patient and son advised to have patient admitted overnight, and have a formal Randhawa catheter cuffed inserted in the morning. Since Covid status on November 23 was negative Past Medical History Cardiac Medical History: Reports: Atrial Fibrillation, Hypertension Psychiatric Medical History: Reports: Dementia Denies: Depression Past Surgical History Past Surgical History: PICC line insertion Past Surgical History: Reports: Other - G tube placement Social History Smoking Status: Unknown if Ever Smoked Electronic Cigarette use?: No Frequency of Alcohol Use: None Hx Recreational Drug Use: No Drugs: None Hx Prescription Drug Abuse: No Family History Family History: Reviewed & Not Pertinent, Other - ams Parental Family History Reviewed: No Children Family History Reviewed: NA Sibling(s) Family History Reviewed.: NA Medication/Allergy Home Medications: Amino Acids 5 %/Dextrose 20 % [Clinimix 5%-20% TPN Solution 1000 ml Bag] 1,000 ml IV .CONTINUOUS PRN iv.soln 12/03/19 Enoxaparin Sodium [Lovenox Inj 80 mg/0.8 ml Disp.syrin] 75 mg SUBCUT Q12 #60 disp.syrin 12/03/19 Fat Emulsions [Intralipid 20% Inj 50 gm/250 ml Bag] 250 ml IV MoTh@1000 bag 12/03/19 Scopolamine Hydrobromide [Transderm-Scop 1.5 mg Patch] 1 each TD Q72H #10 patch.td72 12/03/19 Allergies/Adverse Reactions: Penicillins Allergy (Verified 11/24/19 20:09) Sulfa (Sulfonamide Antibiotics) Allergy (Verified 11/24/19 20:09) Review of Systems ROS unobtainable: Due to mental status, Other - Patient apparently has been active in bed, but nonambulatory due to right hemiparesis. Cardiovascular: PRESENT: other - History of atrial fibrillation, previously on Eliquis; now on Lovenox shots Gastrointestinal: PRESENT: other - Undergoing gastrostomy tube site wound closure by secondary intention with local wound care Neurological: PRESENT: other Psychiatric: PRESENT: other - Patient communicates in Yi, and in [place] Physical Exam Vital Signs: Temp Pulse Resp BP Pulse Ox 98.6 F 101 H 16 118/61 96 12/16/19 13:08 12/16/19 13:08 12/16/19 13:08 12/16/19 13:08 12/16/19 13:08 Intake & Output 12/15/19 12/16/19 12/17/19 06:59 06:59 06:59 Weight 77.2 kg General appearance: PRESENT: no acute distress Head exam: PRESENT: normocephalic Eye exam: PRESENT: EOMI Mouth exam: PRESENT: dry mucosa Neck exam: PRESENT: full ROM Respiratory exam: PRESENT: clear to auscultation nancy Cardiovascular exam: PRESENT: other - Atrial fibrillation Pulses: PRESENT: normal carotid pulses, normal radial pulses, normal femoral pulses, normal dorsalis pedis pul GI/Abdominal exam: PRESENT: other - Abdomen is soft, nontender no peritoneal signs no rigidity; left upper quadrant epigastric region wound oblong shaped, 1 x 3 x 2 cm, granulating in nicely. 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 She is a full code. Commendations: 1. I spent approximately 30 minutes getting to know the patient and her son. She is giving excellent care at home including pressure offloading, extremity manipulation, PICC line care, local wound care of the abdominal wall site. I believe it is reasonable to support this patient and her son by reestablishing long-term IV access, and continuing TPN, with the ultimate goal of reinserting a feeding tube perhaps in the next month. 2. I have spoken with Dr. Galeana, hospitalist, who is agreed to admit patient overnight for observation: We will plan a Randhawa catheter instillation under LMAC anesthesia in the main operating room tomorrow. Dissipate discharge home after line inserted tomorrow. 3. We will obtain a rapid Covid test. 4. All anticoagulation being held hereafter. (2) Dementia Qualifiers: Dementia type: unspecified type Dementia behavioral disturbance: with behavioral disturbance Qualified Code(s): F03.91 - Unspecified dementia with behavioral disturbance Is this a current diagnosis for this admission?: Yes (3) Abdominal wall abscess at site of surgical wound Is this a current diagnosis for this admission?: Yes (4) Atrial fibrillation Qualifiers: Atrial fibrillation type: paroxysmal Qualified Code(s): I48.0 - Paroxysmal atrial fibrillation (5) Chronic anticoagulation Is this a current diagnosis for this admission?: Yes (6) History of stroke Is this a current diagnosis for this admission?: Yes - Time Time Spent: 50 to 70 Minutes Smoking Cessation Education: 3 to 10 minutes Medications reviewed and adjusted accordingly: Yes Anticipated discharge: Home
--- NOTE | 2019-12-16 20:29 | PDOC H&P ---
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 fib, hypertension, dementia who was on TPN for the past 3 weeks after access was lost for tube feeding due to anterior abdominal wall abscess now presented to ER after PICC line which she uses for TPN was dislodged. Her son reports that she is on soft restraints at home. While at the emergency department surgery was consulted and attempt was made to replace PICC line but the procedure was unsuccessful due to patient's excessive agitation. And it was determined that she needs to be in OR setting to insert Randhawa catheter. After discussion with surgical team, due to patient's multiple comorbidities she was admitted to medical service for closer monitoring and observation until access is obtained for TPN. Currently she does not have cough, has not spiked any fever and denies any pain. Surgical team on board and planning to do Randhawa catheter insertion tomorrow. Past Medical History Cardiac Medical History: Reports: Atrial Fibrillation, Hypertension Psychiatric Medical History: Reports: Dementia Denies: Depression Past Surgical History Past Surgical History: Reports: Other - G tube placement Social History Information Source: Legal Guardian - Her son Smoking Status: Unknown if Ever Smoked Electronic Cigarette use?: No Frequency of Alcohol Use: None Hx Recreational Drug Use: No Drugs: None Hx Prescription Drug Abuse: No - Advance Directive Resuscitation Status: Full Code Family History Family History: None, Reviewed & Not Pertinent, Other - ams Parental Family History Reviewed: Yes Children Family History Reviewed: Yes Sibling(s) Family History Reviewed.: Yes Medication/Allergy Home Medications: Amino Acids 5 %/Dextrose 20 % [Clinimix 5%-20% TPN Solution 1000 ml Bag] 1,000 ml IV .CONTINUOUS PRN iv.soln 12/03/19 Enoxaparin Sodium [Lovenox Inj 80 mg/0.8 ml Disp.syrin] 75 mg SUBCUT Q12 #60 disp.syrin 12/03/19 Fat Emulsions [Intralipid 20% Inj 50 gm/250 ml Bag] 250 ml IV MoTh@1000 bag 12/03/19 Scopolamine Hydrobromide [Transderm-Scop 1.5 mg Patch] 1 each TD Q72H #10 patch.td72 12/03/19 Allergies/Adverse Reactions: Penicillins Allergy (Verified 11/24/19 20:09) Sulfa (Sulfonamide Antibiotics) Allergy (Verified 11/24/19 20:09) Review of Systems ROS unobtainable: Due to mental status Physical Exam Vital Signs: Temp Pulse Resp BP Pulse Ox 98.6 F 101 H 16 118/61 96 12/16/19 13:08 12/16/19 13:08 12/16/19 13:08 12/16/19 13:08 12/16/19 13:08 Intake & Output 12/15/19 12/16/19 12/17/19 06:59 06:59 06:59 Weight 77.2 kg Additional comments: GENERAL APPEARANCE: Well-appearing 89-year-old female, not in acute distress HEENT: Normocephalic and atraumatic. No scleral icterus. PERRLA, moist oral mucosa NECK: Supple. Trachea is midline. No evidence of thyroid enlargement. No lymphadenopathy. No JVD CHEST: Symmetric. Nontender to palpation. LUNGS: Breath sounds are equal and clear bilaterally. No wheezes, rhonchi, or rales. HEART: Regular rate and rhythm with normal S1 and S2. No murmurs, gallops, or rubs. ABDOMEN: Soft, has a 3 x 1 cm supraumbilical midline clean open wound covered with gauze and no visible discharge or bleeding seen. No mass or organomegaly appreciated. Bowel sounds are present. No direct or rebound tenderness No CVA tenderness EXTREMITIES: No cyanosis, clubbing, or edema. MUSCULOSKELETAL: No deformity, atrophy or swelling noted SKIN: Warm, dry, and well perfused. No lesions or rashes are noted. NEUROLOGIC: Unable to do full neurologic exam due to advanced dementia and expressive aphasia but the patient is able to move all her extremities Assessment and Plan - Diagnosis (1) Displacement of peripherally inserted central catheter (PICC) Is this a current diagnosis for this admission?: Yes Plan: Patient dislodged PICC line at home and lost access for TPN Attempt was made at ER by surgical team to replace PICC line but was unsuccessful due to patient's excessive agitation Surgical team planning to insert Randhawa catheter tomorrow morning Anticoagulation on hold and Covid test has been requested (2) Abdominal wall abscess at site of surgical wound Is this a current diagnosis for this admission?: Yes Plan: Per her Son's account, the wound is closing and has improved significantly Continue wound care (3) Atrial fibrillation Qualifiers: Atrial fibrillation type: longstanding persistent Qualified Code(s): I48.11 - Longstanding persistent atrial fibrillation Is this a current diagnosis for this admission?: Yes Plan: Currently on therapeutic dose Lovenox at home Lovenox on hold for now for the procedure in the morning per surgery recommendation Rate is well controlled (4) History of stroke Is this a current diagnosis for this admission?: Yes Plan: Patient has residual depressive aphasia and dysphagia and has been on tube feeding for the past 2 years Has no new focal neurologic deficit Continue to monitor (5) On total parenteral nutrition (TPN) Is this a current diagnosis for this admission?: Yes Plan: Due to loss of access for now patient will be kept on D5W TPN to be resumed once Randhawa catheter is inserted tomorrow morning (6) Dementia Qualifiers: Dementia type: unspecified type Dementia behavioral disturbance: with behavioral disturbance Qualified Code(s): F03.91 - Unspecified dementia with behavioral disturbance Is this a current diagnosis for this admission?: Yes Plan: Patient has no change in her mentation and appears to be at her baseline according to her son (7) Dysphagia Is this a current diagnosis for this admission?: Yes Plan: 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, 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 - Time Time Spent with patient: 35 or more minutes Total Critical Time (Minutes): 35 Medications reviewed and adjusted accordingly: Yes Anticipated Discharge Disposition: Home with Home Health Anticipated Discharge Timeframe: within 48 hours - Inpatient Certification Based on my medical assessment, after consideration of the patient's comorbidities, presenting symptoms, or acuity I expect that the services needed warrant INPATIENT care.: Yes I certify that my determination is in accordance with my understanding of Medicare's requirements for reasonable and necessary INPATIENT services [42 CFR 412.3e].: Yes Medical Necessity: Need For IV Fluids, Need for Surgery Post Hospital Care: D/C or Transfer Summary
[2019-12-16 20:37] LABS: ALBUMIN 3.6 g/dL (3.5-5.0); ALKALINE PHOSPHATASE 96 U/L (38-126); ANION GAP 9 (5-19); ASPARTATE AMINO TRANSFERASE 21 U/L (14-36); BILIRUBIN,DIRECT 0.3 mg/dL (0.0-0.4); BILIRUBIN,TOTAL 0.6 mg/dL (0.2-1.3); BLOOD UREA NITROGEN 14 mg/dL (7-20); CALCIUM 9.3 mg/dL (8.4-10.2); CARBON DIOXIDE 26 mmol/L (22-30); CHLORIDE 106 mmol/L (98-107); GLUCOSE 96 mg/dL (75-110); POTASSIUM 4.6 mmol/L (3.6-5.0)
[2019-12-16] MEDS ORDERED: ENOXAPARIN SODIUM INJ 80 MG/0.8 ML DISP.SYRIN SUBCUT SCH (22:00)
[2019-12-16] MEDS: DEXTROSE 5%-WATER 1000 ML 1,000 ML IV PRN (22:12)
[2019-12-16 23:16] LABS: ABSOLUTE EOSINOPHILS # (AUTO) 0.2 10^3/uL (0.0-0.6); ABSOLUTE LYMPHOCYTES (AUTO) 1.6 10^3/uL (0.5-4.7); ABSOLUTE MONOCYTES (AUTO) 0.4 10^3/uL (0.1-1.4); BASOPHILS % (AUTO) 0.4 % (0-2); EOSINOPHILS % (AUTO) 4.8 % (0-6); HEMATOCRIT 33.8 % (36.0-47.0); HEMOGLOBIN 11.3 g/dL (12.0-15.5); LYMPHOCYTES % (AUTO) 38.3 % (13-45); MEAN CORPUSCULAR HEMOGLOBIN 32.2 pg (27.0-33.4); MEAN CORPUSCULAR HGB CONC 33.4 g/dL (32.0-36.0); MEAN CORPUSCULAR VOLUME 97 fl (80-97); MONOCYTES % (AUTO) 9.6 % (3-13); PLATELET COUNT 179 10^3/uL (150-450); RED CELL DISTRIBUTION WIDTH 14.2 % (11.5-14.0); SEGMENTED NEUTROPHILS % (AUTO) 46.9 % (42-78); TOTAL CELLS COUNTED % (AUTO) 100 %; WHITE BLOOD COUNT 4.2 10^3/uL (4.0-10.5)
[2019-12-16 23:31] LABS: INTERNATIONAL RATION (INR) 0.96
[2019-12-17] MEDS ORDERED: MIDAZOLAM 2 MG/2 ML INJ ONE (08:04)
[2019-12-17] MEDS ORDERED: PROPOFOL INJ 200 MG/20 ML VIAL IV ONE (08:04)
[2019-12-17] MEDS ORDERED: LIDOCAINE 2% INJ-PF (20 MG/ML) 10 ML AMPUL ONE (08:04)
[2019-12-17] MEDS ORDERED: FENTANYL CITRATE INJ/PF 100 MCG/2 ML AMPUL ONE (08:04)
[2019-12-17] MEDS ORDERED: LIDOCAINE 1% INJ-PF (10 MG/ML) 30 ML SDV ONE (08:21)
[2019-12-17] MEDS ORDERED: BUPIVACAINE HCL 0.25 % INJ/PF (2.5 MG/1 ML) 30 ML VIAL ONE (08:21)
[2019-12-17] MEDS ORDERED: CLINDAMYCIN PHOSPHATE INJ 300 MG/2 ML SDV ONE (08:56)
--- NOTE | 2019-12-17 09:29 | PDOC PROGRESS REPORT ---
Subjective Progress Note for:: 12/17/19 Subjective:: 89 y/o F with inanition, requiring TPN at home. She is minimally responsive to me this morning. Reason For Visit: TPN ACCESS MALFUNCTION Physical Exam Vital Signs: Temp Pulse Resp BP Pulse Ox 98.9 F 85 22 H 119/83 97 12/17/19 08:00 12/17/19 08:00 12/17/19 08:00 12/17/19 08:00 12/17/19 08:00 Intake & Output 12/16/19 12/17/19 12/18/19 06:59 06:59 06:59 Intake Total 180 Balance 180 Weight 74 kg General appearance: PRESENT: no acute distress Eye exam: ABSENT: scleral icterus Teeth exam: PRESENT: edentulous Neck exam: ABSENT: tracheostomy Respiratory exam: PRESENT: unlabored. ABSENT: tachypnea Cardiovascular exam: ABSENT: tachycardia GI/Abdominal exam: ABSENT: distended, tenderness Neurological exam: ABSENT: alert Results Laboratory Results: 12/16/19 23:04 12/16/19 20:04 12/16/19 12/16/19 20:04 23:04 WBC 4.2 RBC 3.50 L Hgb 11.3 L Hct 33.8 L MCV 97 MCH 32.2 MCHC 33.4 RDW 14.2 H Plt Count 179 Seg Neutrophils % 46.9 Sodium 140.7 Potassium 4.6 Chloride 106 Carbon Dioxide 26 Anion Gap 9 BUN 14 Creatinine 0.56 Est GFR ( Amer) > 60 Glucose 96 Calcium 9.3 Total Bilirubin 0.6 AST 21 Alkaline Phosphatase 96 Total Protein 7.0 Albumin 3.6 Assessment & Plan - Diagnosis (1) Inanition Is this a current diagnosis for this admission?: Yes (2) Dementia Qualifiers: Dementia type: unspecified type Dementia behavioral disturbance: with behavioral disturbance Qualified Code(s): F03.91 - Unspecified dementia with behavioral disturbance Is this a current diagnosis for this admission?: Yes (3) Malnutrition Qualifiers: Malnutrition type: protein-calorie malnutrition Protein-calorie malnutrition severity: moderate Qualified Code(s): E44.0 - Moderate protein- calorie malnutrition Is this a current diagnosis for this admission?: Yes - Time Anticipated Discharge Disposition: unknown Anticipated Discharge Timeframe: unknown - Plan Summary Plan Summary: 89-year-old female with inanition, requiring TPN. The patient pulled out her own PICC line at home. A repeat PICC line was attempted, but failed. Patient is in need of access for TPN. A Randhawa catheter was discussed with the family by Dr. Medina. Consent was obtained by Dr. Medina for a Randhawa catheter. We will proceed with Randhawa catheter today, as per the previous plan. The patient is not alert enough this morning to provide consent. Her son, who discussed her care extensively with Dr. Medina yesterday, has agreed to the treatment plan.
--- NOTE | 2019-12-17 09:39 | Operative Report ---
Nonrecallable Operative Report DATE OF SURGERY: 12/17/19 PREOPERATIVE DIAGNOSIS: inanition, need for TPN POSTOPERATIVE DIAGNOSIS: as above OPERATION: 1. U/s guided central venous puncture. 2. Left internal jugular vein Randhawa catheter placement SURGEON: MARGARET FERRARI ANESTHESIA: LMAC TISSUE REMOVED OR ALTERED: None COMPLICATIONS: None apparent ESTIMATED BLOOD LOSS: Minimal PROCEDURE: Drains/implants: Left internal jugular vein Randhawa catheter placement. Procedure in detail: After informed consent was obtained, the patient was brought to the operating room and laid in the Trendelenburg position. The area of the neck and chest were prepped and draped in a normal sterile fashion. An ultrasound was used to identify the left internal jugular vein. It was compressible with normal flow. Next, the left internal jugular vein was cannulated using the supplied access needle. Dark venous, nonpulsatile blood was returned in the syringe. The wire was inserted into the vein easily. The wire was confirmed to be within the lumen of the vein using ultrasound device. Picture documentation was obtained and placed on the chart. Fluoroscopy was used to confirm that the wire was within the superior vena cava, which it was. Next, the catheter was tunneled from a separate stab incision on the left chest wall, up to the needle insertion site. The dilator and breakaway sheath were then inserted over the wire. This was done under direct fluoroscopic guidance. The catheter was then trimmed to length, and inserted into the breakaway sheath. The sheath was cracked and pulled away, leaving the catheter within the distal innominate vein. The catheter was then aspirated and flushed easily. The krishan ter was then blocked with heparin flush. The catheter was sutured to the skin using 2-0 nylon suture. A Biopatch and occlusive dressing were then placed. The needle insertion site was then closed using 4-0 Vicryl Rapide suture in subcuticular fashion. Dressings were placed, and the procedure was concluded. All sponge, instrument, and needle counts were correct x2. Condition: Fair.
[2019-12-17] MEDS: DEXTROSE 5%-WATER 1000 ML 1,000 ML IV PRN (10:33)
[2019-12-17 12:09] VITALS: BP 128/93
--- NOTE | 2019-12-17 12:58 | PDOC DISCHARGE SUMMARY ---
Impression - Admit/DC Date/PCP Admission Date/Primary Care Provider: 12/16/19 20:08 LAURA WEIR DO Discharge Date: 12/17/19 - Discharge Diagnosis (1) Abdominal wall abscess at site of surgical wound Is this a current diagnosis for this admission?: Yes (2) Atrial fibrillation Is this a current diagnosis for this admission?: Yes (3) Dementia Is this a current diagnosis for this admission?: Yes (4) Displacement of peripherally inserted central catheter (PICC) Is this a current diagnosis for this admission?: Yes (5) Dysphagia Is this a current diagnosis for this admission?: Yes (6) History of stroke Is this a current diagnosis for this admission?: Yes (7) On total parenteral nutrition (TPN) Is this a current diagnosis for this admission?: Yes - Additional Information Resuscitation Status: Full Code Discharge Diet: Other (Comments) Discharge Activity: Activity As Tolerated, Balance Activity w/Rest, Supervised Activity Referrals: LAURA WEIR DO [Primary Care Provider] - Follow up as needed Home Medications: RX: Amino Acids 5 %/Dextrose 20 % [Clinimix 5%-20% TPN Solution 1000 ml Bag] 1,000 ml IV .CONTINUOUS PRN iv.soln 12/03/19 RX: Enoxaparin Sodium [Lovenox Inj 80 mg/0.8 ml Disp.syrin] 75 mg SUBCUT Q12 #60 disp.syrin 12/03/19 RX: Fat Emulsions [Intralipid 20% Inj 50 gm/250 ml Bag] 250 ml IV MoTh@1000 bag 12/03/19 RX: Scopolamine Hydrobromide [Transderm-Scop 1.5 mg Patch] 1 each TD Q72H #10 patch.td72 12/03/19 History of Present Illiness History of Present Illness: Per H&P by Dr. 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 fib, hypertension, dementia who was on TPN for the past 3 weeks after access was lost for tube feeding due to anterior abdominal wall abscess now presented to ER after PICC line which she uses for TPN was dislodged. Her son reports that she is on soft restraints at home. While at the emergency department surgery was consulted and attempt was made to replace PICC line but the procedure was unsuccessful due to patient's excessive agitation. And it was determined that she needs to be in OR setting to insert Randhawa catheter. After discussion with surgical team, due to patient's multiple comorbidities she was admitted to medical service for closer monitoring and observation until access is obtained for TPN. Currently she does not have cough, has not spiked any fever and denies any pain. Surgical team on board and planning to do Randhawa catheter insertion tomorrow. Hospital Course Hospital Course: Patient was taken to the OR early this morning for Randhawa catheter placement. Received call from Dr. Juarez shortly following procedure. Randhawa now in place and cleared for use. The patient otherwise remains hemodynamically stable and has no ongoing acute medical processes requiring inpatient care. She has maximized her hospital benefit and therefore is discharged to home with resumption of home health orders. Physical Exam Vital Signs: Temp Pulse Resp BP Pulse Ox 98.4 F 83 21 H 128/93 H 94 12/17/19 12:11 12/17/19 12:11 12/17/19 12:11 12/17/19 12:11 12/17/19 12:11 Intake & Output 12/16/19 12/17/19 12/18/19 06:59 06:59 06:59 Intake Total 180 1476 Output Total 5 Balance 180 1471 Weight 74 kg General appearance: PRESENT: no acute distress, well-developed, well-nourished - Overweight Head exam: PRESENT: atraumatic, normocephalic Eye exam: PRESENT: conjunctiva pink, EOMI, PERRLA. ABSENT: scleral icterus Mouth exam: PRESENT: moist, tongue midline Respiratory exam: PRESENT: clear to auscultation nancy, other - Room air. ABSENT: rales, rhonchi, wheezes Cardiovascular exam: PRESENT: irregular rhythm. ABSENT: diastolic murmur, rubs, systolic murmur Neurological exam: PRESENT: other - Advanced dementia; bedbound and aphasic at baseline. She does not respond to attempts to interact with her today. Does appear comfortable and not noted to be in any acute distress. Skin exam: PRESENT: dry, warm. ABSENT: cyanosis, rash Results Laboratory Results: WBC 4.2 10^3/uL (4.0-10.5) 12/16/19 23:04 RBC 3.50 10^6/uL (3.72-5.28) L 12/16/19 23:04 Hgb 11.3 g/dL (12.0-15.5) L 12/16/19 23:04 Hct 33.8 % (36.0-47.0) L 12/16/19 23:04 MCV 97 fl (80-97) 12/16/19 23: MCH 32.2 pg (27.0-33.4) 12/16/19 23: MCHC 33.4 g/dL (32.0-36.0) 12/16/19 23:04 RDW 14.2 % (11.5-14.0) H 12/16/19 23:04 Plt Count 179 10^3/uL (150-450) 12/16/19 23:04 Lymph % (Auto) 38.3 % (13-45) 12/16/19 23:04 [place] % (Auto) 9.6 % (3-13) 12/16/19 23:04 Eos % (Auto) 4.8 % (0-6) 12/16/19 23:04 Baso % (Auto) 0.4 % (0-2) 12/16/19 23:04 Absolute Neuts (auto) 2.0 10^3/uL (1.7-8.2) 12/16/19 23:04 Absolute Lymphs (auto) 1.6 10^3/uL (0.5-4.7) 12/16/19 23:04 Absolute Monos (auto) 0.4 10^3/uL (0.1-1.4) 12/16/19 23:04 Absolute Eos (auto) 0.2 10^3/uL (0.0-0.6) 12/16/19 23:04 Absolute Basos (auto) 0.0 10^3/uL (0.0-0.2) 12/16/19 23:04 Seg Neutrophils % 46.9 % (42-78) 12/16/19 23:04 PT 13.0 SEC (11.4-15.4) 12/16/19 23:04 INR 0.96 12/16/19 23:04 Sodium 140.7 mmol/L (137-145) 12/16/19 20:04 Potassium 4.6 mmol/L (3.6-5.0) 12/16/19 20:04 Chloride 106 mmol/L (98-107) 12/16/19 20:04 Carbon Dioxide 26 mmol/L (22-30) 12/16/19 20:04 Anion Gap 9 (5-19) 12/16/19 20:04 BUN 14 mg/dL (7-20) 12/16/19 20:04 Creatinine 0.56 mg/dL (0.52-1.25) 12/16/19 20:04 Est GFR ( Amer) > 60 (>60) 12/16/19 20:04 Est GFR (MDRD) Non-Af > 60 (>60) 12/16/19 20:04 Glucose 96 mg/dL (75-110) 12/16/19 20:04 Calcium 9.3 mg/dL (8.4-10.2) 12/16/19 20:04 Total Bilirubin 0.6 mg/dL (0.2-1.3) 12/16/19 20:04 Direct Bilirubin 0.3 mg/dL (0.0-0.4) 12/16/19 20:04 Neonat Total Bilirubin Not Reportable 12/16/19 20:04 Neonat Direct Bilirubin Not Reportable 12/16/19 20:04 Neonat Indirect Bili Not Reportable 12/16/19 20:04 AST 21 U/L (14-36) 12/16/19 20:04 ALT 18 U/L (<35) 12/16/19 20:04 Alkaline Phosphatase 96 U/L (38-126) 12/16/19 20:04 Total Protein 7.0 g/dL (6.3-8.2) 12/16/19 20:04 Albumin 3.6 g/dL (3.5-5.0) 12/16/19 20:04 SARS-CoV-2 (PCR) NEGATIVE (NEGATIVE) 12/16/19 20:35 Plan Plan of Treatment: Patient is discharged home, in stable condition, into the care of son with home health services. Resume prior home health care and TPN infusions as was previously established. Follow-up with primary care provider within 1 week. Strongly recommend PCP, and all other health care team members, continue to discuss end-of-life goals of care; patient is hospice appropriate. Return to the emergency department as needed for concerning symptoms. Time Spent: Less than 30 Minutes Stroke Is this a Stroke Patient?: No Acute Heart Failure Is this a Heart Failure Patient?: No
--- NOTE | 2019-12-17 14:46 | RADIOLOGY REPORT (SQ) ---
EXAM DESCRIPTION: CHEST SINGLE VIEW; FLUORO/CV PLACEMENT IMAGES COMPLETED DATE/TIME: 12/17/2019 9:31 am; 12/17/2019 10:16 am REASON FOR STUDY: MAHER CATH COMPARISON: Plain radiograph FLUOROSCOPY TIME: 0.4 minutes 2 images saved to PACS. TECHNIQUE: Intra-operative images acquired during surgical procedure to evaluate progress. NUMBER OF IMAGES: 2 LIMITATIONS: None. FINDINGS: Venous access catheter. Tip at the junction of the left subclavian and SVC. IMPRESSION: IMAGE(S) OBTAINED DURING PROCEDURE. COMMENT: Quality ID 145: Final reports for procedures using fluoroscopy that document radiation exp osure indices, or exposure time and number of fluorographic images (if radiation exposure indices are not available) Please consult full operative report of the attending physician for description of the procedure. TECHNICAL DOCUMENTATION: JOB ID: [id number] 2010 [employer]- All Rights Reserved Reading location - IP/workstation name: [email or web address]
--- NOTE | 2019-12-17 14:46 | RADIOLOGY REPORT (SQ) ---
EXAM DESCRIPTION: CHEST SINGLE VIEW; FLUORO/CV PLACEMENT IMAGES COMPLETED DATE/TIME: 12/17/2019 9:31 am; 12/17/2019 10:16 am REASON FOR STUDY: MAHER CATH COMPARISON: Plain radiograph FLUOROSCOPY TIME: 0.4 minutes 2 images saved to PACS. TECHNIQUE: Intra-operative images acquired during surgical procedure to evaluate progress. NUMBER OF IMAGES: 2 LIMITATIONS: None. FINDINGS: Venous access catheter. Tip at the junction of the left subclavian and SVC. IMPRESSION: IMAGE(S) OBTAINED DURING PROCEDURE. COMMENT: Quality ID [id number]: Final reports for procedures using fluoroscopy that document radiation exp osure indices, or exposure time and number of fluorographic images (if radiation exposure indices are not available) Please consult full operative report of the attending physician for description of the procedure. TECHNICAL DOCUMENTATION: JOB ID: [id number] 2010 [employer]- All Rights Reserved Reading location - IP/workstation name: [email or web address]
== END 2019-12-17 13:17 | disposition home health service (06) ==
LOC: ER 12:56 → INTOOBSV 20:08 → EH 20:08 → 4S 21:52
PROVIDERS: ADMIT Student in an Organized Health Care Education/Training Program; ATTEND Registered Nurse
DX: T82.524A Displacement of infusion catheter, initial encounter (principal); T81.41XA Infection following a procedure, superficial incisional surgical site, initial encounter; L02.211 Cutaneous abscess of abdominal wall; Y83.9 Surgical procedure, unspecified as the cause of abnormal reaction of the patient, or of later complication, without mention of misadventure at the time of the procedure; I48.11 Longstanding persistent atrial fibrillation; F03.91 Unspecified dementia, unspecified severity, with behavioral disturbance; I69.320 Aphasia following cerebral infarction; I69.391 Dysphagia following cerebral infarction; R13.10 Dysphagia, unspecified; I69.351 Hemiplegia and hemiparesis following cerebral infarction affecting right dominant side; R45.1 Restlessness and agitation; R64 Cachexia; E44.0 Moderate protein-calorie malnutrition; E66.3 Overweight; R60.0 Localized edema; K08.109 Complete loss of teeth, unspecified cause, unspecified class; Z03.818 Encounter for observation for suspected exposure to other biological agents ruled out; Z99.89 Dependence on other enabling machines and devices; Z74.01 Bed confinement status; Z79.02 Long term (current) use of antithrombotics/antiplatelets
CPT/HCPCS: 36558; 99285; 96372; 36415; 85025; 85610; 80053; 71045; 77001; 99140; 00532; G0378 ×3; C1751; U0003; J3490 ×3; J2060; J7060 ×2; J7030; J2704; J1642; C9803; 532; 87635; J2250; J3010